=== PATIENT | male | born 1980 | race Caucasian/White ===

== ENCOUNTER 2023-09-14 12:19 | Outpatient (OUT) | payer OTHER, SELFPAY ==
[2023-09-14 12:58] LABS: Basophils Absolute Auto 0.1 10^3/uL (0.0-0.1); Basophils Percent Auto 0.9 % (0.2-2.0); Eosinophils Absolute Auto 0.2 10^3/uL (0.0-0.7); Eosinophils Percent Auto 2.3 % (0.9-7.0); Immature Granulocytes Abs Auto 0.02 10^3/uL (0.00-0.03); Immature Granulocytes Pct Auto 0.3 % (0.0-0.5); Lymphocytes Absolute Auto 2.1 10^3/uL (1.2-3.8); Lymphocytes Percent Auto 28.3 % (20.5-60.0); Mean Corpuscular HGB Conc 34.1 g/dL (29.9-35.2); Mean Corpuscular Hemoglobin 29.5 pg (25.9-34.0); Mean Corpuscular Volume 86.6 fL (80.0-94.0); Mean Platelet Volume 9.1 fL (9.5-13.5); Monocytes Absolute Auto 0.6 10^3/uL (0.3-0.8); Monocytes Percent Auto 7.7 % (1.7-12.0); Neutrophils Absolute Auto 4.6 10^3/uL (1.4-6.5); Neutrophils Percent Auto 60.5 % (43.0-75.0); Platelet Count 317 10^3/uL (150-450); Red Blood Count 5.08 10^6/uL (4.70-6.10); Red Cell Distribution Width 13.2 % (11.0-15.0); White Blood Count 7.5 10^3/uL (4.0-11.0)
[2023-09-14 13:25] LABS: Alanine Aminotransferase 56 U/L (16-63); Anion Gap 9.9; Aspartate Amino Transferase 30 U/L (15-37); BUN Creatinine Ratio 13.4; Bilirubin Total 0.7 mg/dL (0.2-1.0); Calcium 9.6 mg/dL (8.5-10.1); Carbon Dioxide 33.2 mmol/L (21.0-32.0); Chloride 101 mmol/L (98-107); Estimated GFR (African America >60 (>=60); Estimated GFR (Non-African Ame >60 (>=60); Glucose 93 mg/dL (74-106); Potassium 4.1 mmol/L (3.5-5.1); Sodium 140 mmol/L (136-145)
[2023-09-14 13:26] LABS: Alkaline Phosphatase 56 U/L (46-116); Cholesterol 169 mg/dL (<=200); Globulin 4.2 g/dL; HDL Cholesterol 42 mg/dL (40-60); Total Protein 8.2 g/dL (6.4-8.2); Triglycerides 193 mg/dL (<=150); VLDL CHOLESTEROL 38.6 mg/dL
== END 2023-09-14 12:20 | disposition home or self-care (01) ==
LOC: LAB 12:25
PROVIDERS: PCP Nurse Practitioner Family; Visit Provider Nurse Practitioner Family
DX: E78.2 Mixed hyperlipidemia (principal); I10 Essential (primary) hypertension
CPT/HCPCS: 36415; 80053; 80061; 85025

== ENCOUNTER 2023-10-05 10:15 | Outpatient (OUT) | payer OTHER, SELFPAY ==
--- OUTSIDE RECORDS SUMMARY | 2023-09-17 17:18 | XMS_ITS | CCD ---
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 Neisha Noyola Attending Unava ilable Shima, Dr. Johnny Lee Primary Care Unavaila ble SHIMA, DR FARAH Primary Care Unavailable DINESH, DR MARIE Attending Unavailable DINESH, DR MARIE Consulting Unavailable DINESH, DR MARIE Admitting Unavailable LUISA WEIR Consulting Unavailable TIMMIS, DR TREVINO Attending Unavailable TIMMIS, DR TREVINO Consulting Unavailable TIMAMINA, DR TREVINO Admitting Unavailable SHIMA, DR FARAH Primary Care Unavailable NEIDA, DR FLORENTINO Rose Consulting Unavailable SHIMA, DR FARAH Admitting Unavailable SHIMA, DR FARAH Attending Unavailable SHIMA, DR FARAH Consulting Unavailable SHIMA, DR FARAH Primary Care Unavailable NEIDA, DR FLORENTINO Rose Consulting Unavailable MD Johnny Ronquillo Primary Care Provider MD Camryn Baker Attending Provider Calvey, Camryn R Admitting Unavailable Calvey, Camryn R Attending Unavailable Shima, Rugen M Primary Care Unavailable Calvey, Camryn R Admitting Unavailable Calvey, Camryn R Attending Unavailable Sonoita, Rugen M Primary Care Unavailable Calvey, Camryn R Admitting Unavailable Calvey, Camryn R Attending Unavailable Sonoita, Rugen M Primary Care Unavailable Calvey, Camryn R Admitting Unavailable Calvey, Camryn R Attending Unavailable Sonoita, Rugen M Primary Care Unavailable Negro Negrete Admitting Unavailable Negro Negrete Attending Unavailable Shima, Rugen M Primary Care Unavailable Calvey, Camryn R Admitting Unavailable Calvey, Camryn R Attending Unavailable Shima, Rugen M Primary Care Unavailable Calvey, Camryn R Admitting Unavailable Calvey, Camryn R Attending Unavailable Sonoita, Rugen M Primary Care Unavailable Calvey, Camryn R Admitting Unavailable Calvey, Camryn R Attending Unavailable Sonoita, Rugen M Primary Care Unavailable Calvey, Camryn R Admitting Unavailable Calvey, Camryn R Attending Unavailable Shima, Rugen M Primary Care Unavailable Negro Negrete Admitting Unavailable Negro Negrete Attending Unavailable Sonoita, Rugen M Primary Care Unavailable Calvey, Camryn R Admitting Unavailable Calvey, Camryn R Attending Unavailable Shima, Rugen M Primary Care Unavailable Neisha Noyola Referring Unavailable Neisha Noyola Attending Unavailable Shima, Dr. Johnny Lee Primary Care UnavailKatey Ulrich Unavailable [phone] Allergies Allergy Classification Reported Allergen(s) Allergy Type Date of Onset Reaction(s) Facility (7 sources) Lisinopril; Translations: [Lisinopril TABS] Drug Allergy Cough, Unknown [facility] 250 DO Work Phone: (10 sources) Iodinated Contrast Media; Translations: [Iodinated Contrast Media] Allergy to substance 1 [facility] (5 sources) Contrast media Allergy to substance (finding) [facility] 250 DO Work Phone: (1 source) Iodine (And Iodine Containting Drugs) Drug allergy (disorder) [facility] (1 source) Contrast media Propensity to adverse reactions Unknown [facility] Other Medications Current Medications Medication Drug Class(es) Dates Sig (Normalized) Sig (Original) [id number] 200 actuat albuterol 0.09 mg/actuat metered dose inhaler (9 sources) beta2-Adrenergic Agonist Start: 1 take 1 puff(s) by inhalation once daily Albuterol Sulfate Active 2 PUFF INHALATION Daily April 04, 2021 12:00am amLODIPine 10 mg / hydroCHLOROthiazide 25 mg / olmesartan medoxomil 40 mg oral tablet (8 sources) Thiazide Diuretic, Dihydropyridine Calcium Channel Belkis, Angiotensin 2 Receptor Belkis take 1 tablet by mouth every twenty-four hours Olmesartan-amLODI [place]-HCTZ 40-10-25 MG 1 tablet Orally Once a day Active azelastine hydrochloride 0.137 mg/actuat metered dose nasal spray (1 source) Histamine-1 Receptor Antagonist Azelastine HCl 0.1 % 2 sprays in each nostril Nasally As needed for 14 days Active cetirizine hydrochloride 10 mg oral tablet (3 sources) Histamine-1 Receptor Antagonist Start: 2 take 10 mg by mouth once daily Cetirizine Active 10 MG PO Daily May 10, 2022 12:00am citalopram 20 mg oral tablet (1 source) Serotonin Reuptake Inhibitor take 1 tablet by mouth every twenty-four hours Citalopram Hydrobromide 20 MG 1 tablet Orally Once a day Active Magnesium (1 source) Magnesium 400 MG as directed Orally Active nitroglycerin 0.4 mg sublingual tablet (11 sources) Nitrate Vasodilator Start: 9 Nitroglycerin Active 0.4 MG SUBLINGUAL every 5 to 15 minutes December 17, 2018 12:00am until response; do not exceed 3 doses per episode Nitroglycerin 0. 4 MG as directed Sublingual Active sertraline 50 mg oral tablet (17 sources) Serotonin Reuptake Inhibitor Start: 04-04-2021 take 50 mg by mouth once daily at bedtime Sertraline Active 50 MG PO Daily at bedtime April 04, 2021 12:00am Completed/Discontinued Medications Medication Drug Class(es) Dates Sig (Normalized) Sig (Original) acetaminophen 325 mg / oxyCODONE hydrochloride 5 mg oral tablet (20 sources) Opioid Agonist Start: 01-24-2022 End: 05-10-2022 take 1 tablet by mouth every four to six hours Oxycodone-Acetamino phen (Percocet) 5-325 mg tablet Discontinued 1 - 2 TAB PO EVERY 4-6 HOURS 50 7 January 31, 2022 May 10, 2022 9:56am Start: 05-09-2021 End: 05-10-2022 take 1-2 tablets by mouth every six hours as needed for pain Oxycodone-Acetaminophen (Percocet) 5-325 mg tablet Discontinued 2 TAB PO Q6H 30 7 May 09, 2021 May 10, 2022 9:56am 1-2 tabs po q 6 hours prn pain allopurinol 300 mg oral tablet (20 sources) Xanthine Oxidase Inhibitor Start: 07-13-2022 take 1 tablet by mouth once daily Allopurinol 300 MG Oral Tablet TAKE 1 TABLET DAILY. Quantity: 0 Refills: 0 Ordered: 08-Nov-2022 DO Start : 13-Jul-2022 Active Start: 12-17-2018 End: 04-04-2021 take 300 mg by mouth once daily at bedtime Allopurinol Active 300 MG PO Daily at bedtime April 04, 2021 5:45pm amLODIPine 10 mg oral tablet (19 sources) Dihydropyridine Calcium Channel Belkis Start: 04-04-2021 take 1 tablet by mouth once daily amLODIPine Besylate 10 MG Oral Tablet TAKE 1 TABLET DAILY. Quantity: 90 Refills: 3 Ordered: 12-Dec-2022 Neisha Noyola DO Start : 13-Jul-2022 Active aspirin 81 mg chewable tablet (9 sources) Platelet Aggregation Inhibitor, Nonsteroidal Anti-inflammatory Drug Start: 12-17-2018 End: 04-04-2021 take 81 mg by mouth once daily Aspirin Discontinued 81 MG PO Daily 0 December 17, 2018 12:00am April 04, 2021 5:31pm atorvastatin 80 mg oral tablet (20 sources) HMG-CoA Reductase Inhibitor Start: 12-17-2018 take 1 tablet by mouth once daily in the evening Atorvastatin Calcium 80 MG Oral Tablet take 1 tablet by mouth every evening Quantity: 90 Refills: 3 Ordered: 12-Dec-2022 Neisha Noyola DO Start : 08-Sep-2021 Active take 1 tablet by arnold th every twenty-four hours Atorvastatin Calcium 20 MG 1 tablet Oral ly Once a day Active carvedilol 25 mg oral tablet (18 sources) alpha-Adrenergic Belkis, beta-Adrenergic Belkis Start: 04-04-2021 End: 01-24-2022 take 25 mg by mouth twice daily Carvedilol Discontinued 25 MG PO Twice daily April 04, 2021 12:00am January 24, 2022 12:10pm Start: 12-17-2018 End: 04-04-2021 take 6.25 mg by mouth twice daily at mealtime Carvedilol Discontinued 6.25 MG PO Twice daily with meals December 17, 2018 12:00am April 04, 2021 5:32pm clopidogrel 75 mg oral tablet (20 sources) P2Y12 Platelet Inhibitor Start: 12-12-2021 take 1 tablet by mouth once daily Clopidogrel Bisulfate 75 MG Oral Tablet Take 1 tablet daily Quantity: 90 Refills: 3 Ordered: 12-Dec-2022 Neisha Noyola DO Start : 12-Dec-2021 Active Start: 12-17-2018 End: 04-04-2021 take 1 tablet by mouth once daily Clopidogrel Bisulfate 75 MG Oral Tablet TAKE 1 TABLET BY MOUTH DAILY Quantity: 90 Refills: 3 Ordered: 13-Dec-2021 Yelena Dudley Start : 12-Dec-2021 Active doxycycline hyclate 100 mg oral tablet (5 sources) Tetracycline-class Drug Start: 01-31-2022 End: 05-10-2022 take 100 mg by mouth twice daily Doxycycline Hyclate Discontinued 100 MG PO Twice daily 10 5 January 31, 2022 12:00am May 10, 2022 9:47am furosemide 40 mg oral tablet (2 sources) Loop Diuretic Start: 09-11-2022 take 1 tablet by mouth once daily Furosemide 40 MG Oral Tablet TAKE 1 TABLET DAILY. Quantity: 0 Refills: 0 Ordered: 08-Dec-2022 DO Start : 11-Sep-2022 Active lisinopril 5 mg oral tablet (9 sources) Angiotensin Converting Enzyme Inhibitor Start: 12-17-2018 End: 04-04-2021 take 5 mg by mouth once daily Lisinopril Discontinued 5 MG PO Daily 30 December 17, 2018 12:00am April 04, 2021 5:32pm 24 hr metoprolol succinate 50 mg extended release oral tablet (20 sources) beta-Adrenergic Belkis Start: 12-26-2021 take 1 tablet by mouth once daily Metoprolol Succinate ER 50 MG Oral Tablet Extended Release 24 Hour TAKE 1 TABLET BY MOUTH DAILY Quantity: 90 Refills: 3 Ordered: 12-Dec-2022 Neisha Noyola DO Start : 26-Dec-2021 Active take 1 tablet by arnold th every twelve hours Metoprolol Tartrate 50 MG 1 tablet with food Orally Twice a day Active pantoprazole 20 mg delayed release oral tablet (5 sources) Proton Pump Inhibitor Start: 05-10-2022 take 1 tablet by mouth once daily Pantoprazole Sodium 20 MG Oral Tablet Delayed Release TAKE 1 TABLET BY MOUTH ONCE DAILY Quantity: 30 Refills: 0 Ordered: 08-Nov-2022 DO Start : 11-Oct-2022 Active traZODone hydrochloride 50 mg oral tablet (9 sources) Serotonin Reuptake Inhibitor Start: 04-04-2021 End: 01-24-2022 take 50 mg by mouth once daily at bedtime Trazodone Discontinued 50 MG PO Daily at bedtime April 04, 2021 12:00am January 24, 2022 12:15pm valsartan 320 mg oral tablet (19 sources) Angiotensin 2 Receptor Belkis Start: 12-09-2022 take 1 tablet by mouth once daily Valsartan 320 MG Oral Tablet TAKE 1 TABLET DAILY. Quantity: 90 Refills: 3 Ordered: 12-Dec-2022 Neisha Noyola DO Start : 09-Dec-2022 Active Start: 04-04-2021 take 320 mg by mouth once daily at bedtime Valsartan Active 320 MG PO Daily at bedtime April 04, 2021 12:00am Problems Active Problems Problem Classification Problem Date Documented Da te Episodic/Chronic Abdominal hernia (9 sources) Umbilical hernia; Translations: [Umbilical hernia without obstruction or gangrene] 05-09-2021 Episodic Acute myocardial infarction (14 sources) Myocardial infarction; Translations: [Non-ST elevation (NSTEMI) myocardial infarction] 12-16-2018 Chronic Administrative/social admission (4 sources) Patient encounter status; Translations: [Health examination of defined subpopulations] Onset: 3 Episodic Anxiety disorders (1 source) Anxiety; Translations: [Anxiety disorder, unspecified] Chronic Coronary atherosclerosis and other heart disease (12 sources) Ischemic myocardial dysfunction; Translations: [Other specified forms of chronic ischemic heart disease] Onset: 3 Chronic Disorders of lipid metabolism (7 sources) Mixed hyperlipidemia; Translations: [Mixed hyperlipidemia] Chronic Esophageal disorders (6 sources) Gastroesophageal reflux disease; Translations: [Gastro-esophageal reflux disease without esophagitis] Onset: 2 Resolved: 2 Chronic Essential hypertension (6 sources) Essential hypertension; Translations: [Unspecified essential hypertension] Chronic Gout and other crystal arthropathies (6 sources) Gout; Translations: [Gout, unspecified] Chronic Mood disorders (1 source) Recurrent major depression in partial remission; Translations: [Major depressive disorder, recurrent, in partial remission] Chronic Other gastrointestinal disorders (5 sources) Dysphagia; Translations: [Dysphagia, unspecified] Episodic Other nervous system disorders (5 sources) Pain in limb; Translations: [Other acute postprocedural pain] 01-31-2022 Episodic Other nutritional; endocrine; and metabolic disorders (4 sources) Morbid obesity; Translations: [Morbid obesity] Chronic Other nutritional; endocrine; and metabolic disorders (5 sources) Body mass index 40+ - severely obese; Translations: [Body Mass Index 40.0-44.9, adult] Chronic Other upper respiratory infections (8 sources) Chronic maxillary sinusitis; Translations: [Chronic sinusitis, unspecified] Onset: 2 Chronic Residual codes; unclassified (1 source) Obstructive sleep apnea syndrome; Translations: [Obstructive sleep apnea (adult) (pediatric)] Chronic Residual codes; unclassified (5 sources) Other specified postprocedural states Onset: 2 Resolved: 2 Episodic Residual codes; unclassified (1 source) Other specified postprocedural states; Translations: [Other specified postprocedural states] Onset: 3 Episodic Screening and history of mental health and substance abuse codes (1 source) Ex-smoker; Translations: [Personal history of tobacco use] Episodic Unclassified (1 source) Encounter for preprocedural laboratory examination; Translations: [Encounter for preprocedural laboratory examination] Onset: 2 Unclassified (1 source) S52.362A - Displaced segmental fracture of shaft of radius, left arm, initial encounter for closed fracture; Translations: [S52.362A - Displaced segmental fracture of shaft of radius, left arm, initial encounter for closed fracture] Onset: 2 Unclassified (1 source) Displaced segmental fracture of shaft of radius, left arm, initial encounter for closed fracture; Translations: [Displaced segmental fracture of shaft of radius, left arm, initial encounter for closed fracture] Onset: 2 Unclassified (1 source) M25.532 - Pain in left wrist; Translations: [M25.532 - Pain in left wrist] Onset: 2 Unclassified (1 source) Z01.812 - Encounter for preprocedural laboratory examination; Translations: [Z01.812 - Encounter for preprocedural laboratory examination] Onset: 2 Past or Other Problems Problem Classification Problem Date Documented Da te Episodic/Chronic E Codes: Machinery (1 source) Contact with other specified agricultural machinery, initial encounter; Translations: [CONTACT OTH AGRICULTURAL MACH INIT] Onset: 01-20-2022 Episodic Fracture of upper limb (13 sources) Fracture of distal end of radius; Translations: [Unspecified fracture of the lower end of left radius, initial encounter for closed fracture] Onset: 01-20-2022 Resolved: 03-15-2022 01-31-2022 Episodic Joint disorders and dislocations; trauma-related (1 source) Subluxation of distal radioulnar joint of left wrist, initial encounter; Translations: [SUBLUXATION LILY JOINT LT WRIST INIT] Onset: 01-20-2022 Episodic Nausea and vomiting (1 source) Nausea; Translations: [NAUSEA] Onset: 01-20-2022 Episodic Other aftercare (1 source) Other [facility] (current[facility] drug therapy; Translations: [OTH BAND MASTER CURRENT DRUG THERAPY] Onset: 01-20-2022 Episodic Other connective tissue disease (3 sources) Pain in left arm; Translations: [PAIN IN LEFT ARM] Onset: 01-19-2022 Episodic Other connective tissue disease (1 source) Pain in unspecified limb; Translations: [Pain in unspecified limb] Onset: 01-31-2022 Episodic Other gastrointestinal disorders (2 sources) Dysphagia, unspecified; Translations: [Dysphagia, unspecified] Onset: 04-04-2022 Resolved: 04-04-2022 Episodic Other nervous system disorders (1 source) Other acute postprocedural pain; Translations: [Other acute postprocedural pain] Onset: 01-31-2022 Episodic Results Test Name Value Interpretation Reference Range Facility Office Visit (Cardiology)on 12-12-2022 Follow-up visit Diagnoses/Problems Assessed 3-vessel coronary artery disease (414.00) (I25.10) Ischemic cardiomyopathy (414.8) (I25.5) History of PTCA (V45.82) (Z98.61) Essential hypertension (401.9) (I10) Myocardial infarct (410.90) (I21.9) Morbid obesity with BMI of 40.0-44.9, adult (278.01,V85.41) (E66.01,Z68.41) Former smoker (V15.82) (Z87.891) Hyperlipidemia, mixed (272.2) (E78.2) Orders 3-vessel coronary artery disease Renew: Clopidogrel Bisulfate 75 MG Oral Tablet; Take 1 tablet daily Renew: Metoprolol Succinate ER 50 MG Oral Tablet Extended Release 24 Hour; TAKE 1 TABLET BY MOUTH DAILY 3-vessel coronary artery disease, Ischemic cardiomyopathy Renew: amLODIPine Besylate 10 MG Oral Tablet; TAKE 1 TABLET DAILY BMI 40.0-44.9, adult Healthy Weight Tips; Status:Complete - Retrospective Authorization; Done: 12Dec2022 AST; Status:Active - Retrospective Authorization; Requested for:12Dec2022; Some eating tips that can help you lose weight.; Status:Complete - Retrospective Authorization; Done: 12Dec2022 CRP, High Sensitivity; Status:Active - Retrospective Authorization; Requested for:12Dec2022; Lipid Panel; Status:Active - Retrospective Authorization; Requested for:12Dec2022; Essential hypertension Renew: Valsartan 320 MG Oral Tablet; TAKE 1 TABLET DAILY Hyperlipidemia, mixed Renew: Atorvastatin Calcium 80 MG Oral Tablet; take 1 tablet by mouth every evening SocHx: Former smoker Tobacco Use Screening; Status:Complete; Done: 12Dec2022 Patient Instructions Please bring all medicines, vitamins, and herbal supplements with you when you come to the office. Prescriptions will not be filled unless you are compliant with your follow up appointments or have a follow up appointment scheduled as per instruction of your physician. Refills should be requested at the time of your visit. Follow up in 1 year Chief Complaint MASSIMO SANTOYO is being seen for an annual follow-up of. 42-year-old gentleman returns for follow-up for the first time since April 2021. Patient has a history of Non-ST elevation myocardial infarction, December 2018 with primary revascularizations of the ostial/proximal circumflex, provisional balloon angioplasties of the first and second marginal branches; chronic total occlusion revascularization of the mid LAD and diagonal branch with stenting of these 2 vessels, provisional balloon angioplasty of the second diagonal branch; with mild LV dysfunction. He underwent stress testing this past October and passed this albeit, inadequate heart rate but at 8.5 METS with no ischemic ECGs or symptoms. He has underlying obesity, hypertension, family history of precocious coronary disease, he remains on high-dose statin and DAPT therapies, does not smoke and does not have diabetes. We have no recent blood work, will require this from his primary care physician or obtain lipid panel ourselves, continue recommend dietary discretion, weight loss and exercise and will continue with DAPT therapy for the time being we will follow-up in 1 year Surgical History Problems History of Appendectomy Denied: History of Complete colonoscopy History of Facial surgery History of Wrist surgery Current Meds Medication NameInstruction Allopurinol 300 MG Oral TabletTAKE 1 TABLET DAILY. amLODIPine Besylate 10 MG Oral TabletTAKE 1 TABLET DAILY. Atorvastatin Calcium 80 MG Oral Tablettake 1 tablet by mouth every evening Clopidogrel Bisulfate 75 MG Oral TabletTake 1 tablet daily Furosemide 40 MG Oral TabletTAKE 1 TABLET DAILY. Metoprolol Succinate ER 50 MG Oral Tablet Extended Release 24 HourTAKE 1 TABLET BY MOUTH DAILY Nitroglycerin 0.4 MG Sublingual Tablet SublingualPL[address] 1 TABLET UNDER THE TONGUE EVERY 5 MINUTES FOR UP TO 3 DOSES NEEDED FOR CHEST PAIN.CALL 911 IF PAIN PERSISTS. Pantoprazole Sodium 20 MG Oral Tablet Delayed ReleaseTAKE 1 TABLET BY MOUTH ONCE DAILY Valsartan 320 MG Oral TabletTAKE 1 TABLET DAILY. Patient did not bring medication list or bottles. Updated verbally with patient Allergies Medication Lisinopril TABS Cough; Updated By: Muriel Fowler; 03/06/2022 9:39:40 AM NonMedication IV Contrast Dye Hives;; Recorded By: Muriel Fowler; 03/06/2022 9:39:40 AM Social History Problems Alcohol use (V49.89) (Z78.9) Caffeine use (V49.89) (Z78.9) Drug use (305.90) (F19.90) weed occasional Former smoker (V15.82) (Z87.891) Review of Systems Constitutional: not feeling tired. Cardiovascular: chest pain, but no intermittent leg claudication and as noted in HPI. Respiratory: no cough and no shortness of breath. Gastrointestinal: no change in bowel habits and no blood in stools. Integumentary: no skin rashes. Neurological: no seizures and no frequent falls. All other systems have been reviewed and are negative for complaint. Vitals Vital Signs Recorded: 12Dec2022 02:29PM Heart Rate80, R Radial Vyrmqlvt549, LUE, Sitting Gqnxrgeul70, LUE, Sitting Xrzzyl990 lb Tobacco Useb) No Physical Exam (more content not included)... Normal Pure Eleg[employer] TV Tobacco Screening.on 023 Tobacco use status [facility] b) No -[facility] 250 DO Work Phone: XR wrist LT min 3V*on 2022 XR wrist LT min 3V* [facility] Main [place] [address] [place] [address] XRay Report Signed Patient: Massimo Santoyo MR#: [id number] : 1980 Acct:[id number] Age/Sex: 42 / M ADM Date: 11/01/22 Loc: [facility] [place] Room: Type: [facility] Attending Dr: Camryn Baker MD Copies to: Camryn Baker MD Ordering Provider: Camryn Baker MD Date of Service: 11/01/22 XR/XR wrist LT min 3V*: Other specified postprocedural states LEFT WRIST - 4 VIEWS COMPARISON: 05/24/2022 CLINICAL DATA: Follow-up distal radius fracture. AP, lateral, oblique and ulnar deviation views were obtained. There is redemonstration of a volar plate and multiple screws along the distal radial shaft up to the epiphysis. There is an old healed fracture at that site which is unchanged from the prior. An old ununited ulnar styloid fracture is also seen. There are no acute fractures or dislocation. There is continued narrowing of the radiocarpal joint space. There is no focal soft tissue swelling. XR/XR wrist LT min 3V* IMPRESSION: OLD WRIST FRACTURES, UNCHANGED FROM THE PRIOR. DEGENERATIVE CHANGE AT THE LATERAL WRIST. Impression dictated by: Luisa Espinoza M.D.11/01/2022 4:48 PM Dictation Location: [facility] Transcribed By: ANN-MARIE 11/01/22 1648 Dictated By: Luisa Espinoza MD 11/01/221645 Signed By: 11/01/221647 [facility] Cardiac Stress Teston 2022 Cardiac Stress Test [address], [address] [place] [address] Exercise Stress Test Patient Name: MASSIMO SANTOYO Ordering Physician: [id number] Neisha Noyola DO Study Date: 09/19/2022 Reading Physician: [id number] Flores MD, [facility] MRN/PID: [id number] Supervising Physician: Sherly Flores MD, [facility] Accession/Order#: [id number] Referring Physician: NEISHA NOYOLA Date of : 1980 PCP: Johnny Ronquillo Gender: M Fellow: Height: 190.50 cm Nurse: Cosmo Brower RN Weight: 157.40 kg Awning Erector: MICAHEL BSA: 2.77 m2 Technologist: BMI: 43.37 kg/m2 Additional Staff: Age: 42 years cc report to: Patient Location: cc report to: [id number] Neisha Cisnerosbe SALAS Study Type: Cardiac Stress Test Diagnosis/ICD: I25.10-Atheroscleroti c heart disease Indication: Clearance Occupational Procedure/CPT: Stress Test Interpretation-19500; Stress Test Supervision-[id number] Falls Risk: Low: Patient has low risk for sustaining a fall; environmental safety interventions in place. Study Details: Correct procedure and correct patient verified verbally. Patient Performance: The peak heart rate achieved was 141 bpm, which was 79 % of the age predicted target heart rate of 178 bpm. The resting blood pressure was 128/88 mmHg with a heart rate of 61 bpm. The standing blood pressure was 126/88 mmHg with a heart rate of 60 bpm. The patient's functional capacity was below average. The patient developed leg fatigue during the stress exam. The symptoms resolved with rest. The blood pressure response was normal. The test was terminated due to: leg fatigue and musculoskeletal weakness. Baseline ECG: Resting ECG showed normal sinus rhythm. Stress Stage Data: + +-- -+------+-------+ HR Sys BP Ocasio BP + +-- -+------+-------+ Baseline Resting 61 128 88 + +-- -+------+-------+ Baseline Standing 60 126 88 + +-- -+------+-------+ Stage 1/2 110 144 86 + +-- -+------+-------+ Stage I 121 164 88 + +-- -+------+-------+ Stage II 141 168 90 + +-- -+------+-------+ Recovery ECG: The heart rate recovery was normal. + +---+--- ---+-------+ HR Sys BP [facility] + +---+--- ---+-------+ Recovery I 141 164 88 + +---+--- ---+-------+ Recovery II 117 166 90 + +---+--- ---+-------+ Recovery III 93 146 92 + +---+--- ---+-------+ Recovery IV 79 136 94 + +---+--- ---+-------+ Recovery V 81 132 88 + +---+--- ---+-------+ Summary: 1. 1_nondiagnostic exercise tolerance test after completing 7 minutes on a Bennie protocol and achieving 79% of predicted maximal heart rate and workload of 8.5 METS. Failure to achieve 85% of predicted maximal heart rate reduces the sensitivity of the test in detecting myocardial ischemia. 2_no chest pain and no cardiac arrhythmias with no ischemic EKG changes noted at submaximal stress test of unknown significance. 3_attenuated heart rate response to exercise. If the index of suspicion for ischemic heart disease is elevated a pharmacological nuclear stress test is recommended. 2. The adequate level of stress was achieved. [id number] Jenny Flores MD, [facility] Electronically signed on 09/19/2022 at 5:38:46 PM Final Normal [facility] XR wrist LT 2Von 05-24-2022 XR wrist LT 2V [facility] [place] [place] [address] XRay Report Signed Patient: Massimo Santoyo MR#: [id number] 232 : 1980 Acct:[id number] Age/Sex: 41 / M ADM Date: 05/24/22 Loc[place] [facility] [place] Room: Type: [facility] Attending Dr: Camryn Baker MD Copies to: Camryn Baker MD Ordering Provider: Camryn Baker MD Date of Service: 05/24/22 XR/XR wrist LT 2V: Closed displaced segmental fracture of shaft of left radius, LEFT WRIST - 2 views CLINICAL HISTORY: Follow-up distal radius fracture COMPARISON: Left wrist 04/12/2022 FINDINGS: Hardware fixation of a distal radius grossly unchanged in alignment compared to the prior study. Fracture lines are less conspicuous suggestive of healing. Styloid process fracture of the ulna is unchanged. XR/XR wrist LT 2V IMPRESSION: HEALING INTERNALLY FIXATED DISTAL RADIUS FRACTURE WITHOUT EVIDENCE OF HARDWARE COMPLICATION. Impression dictated by: Gilberto Escoto Jr., D.O.05/24/2022 4:49 PM Dictation Location: [facility]--08 Transcribed By: [facility] 05/24/221648 Dictated By: Gilberto Escoto Jr, DO 05/24/221647 Signed By: 05/24/221648 Normal [facility] XR wrist LT 2V [facility] [employer] Other XR wrist LT 2V [facility] [employer] Other XR wrist LT 2V [address] [place] [address] [employer] Other XR [place] 2[place] [address] [facility] [employer] Other XR wrist LT 2V XRay Report [employer] Other XR wrist LT 2V Signed [employer] Other XR wrist LT 2V Patient: Massimo Santoyo MR#: [id number] [employer] Other XR wrist LT 2V 232 [employer] Other XR wrist LT 2V : 1980 Acct:[id number] [employer] Other XR wrist LT 2V Age/Sex: 41 / M ADM Date: 05/24/22 [employer] Other XR wrist LT 2V Loc: [facility] Room: Type : [facility] [employer] Other XR wrist LT 2V Attending Dr: Mindy Baker MD [employer] Other XR wrist LT 2V Copies to: Camryn Baker MD [employer] Other XR wrist LT 2V Ordering Provider: Camryn Baker MD [employer] Other XR wrist LT 2V Date of Service: 05/24/22 [employer] Other XR wrist LT 2V XR/XR wrist LT 2V: Closed displaced segmental fracture of shaft of left [employer] Other XR wrist LT 2V radius, [employer] Other XR wrist LT 2V LEFT WRIST - 2 views [employer] Other XR wrist LT 2V CLINICAL HISTORY: Follow-up distal radius fracture [employer] Other XR wrist LT 2V COMPARISON: Left wrist 04/12/2022 [employer] Other XR wrist LT 2V FINDINGS: [employer] Other XR wrist LT 2V Hardware fixation of a distal radius grossly unchanged in alignment compared to the prior study. [employer] Other XR wrist LT 2V Fracture lines are less conspicuous suggestive of healing. Styloid process fracture of the ulna is [employer] Other XR wrist LT 2V unchanged. [employer] Other XR wrist LT 2V XR/XR wrist LT 2V [employer] Other XR wrist LT 2V IMPRESSION: [employer] Other XR wrist LT 2V HEALING INTERNALLY FIXATED DISTAL RADIUS FRACTURE WITHOUT EVIDENCE OF HARDWARE COMPLICATION. [employer] Other XR wrist LT 2V Impression dictated by: Gilberto Escoto Jr., D.ODandy05/24/2022 4:49 PM [employer] Other XR wrist LT 2V Dictation Location: [place] [address] [employer] Other XR wrist LT 2V Transcribed By: ANN-MARIE 05/24/22 [facility] [employer] Other XR wrist LT 2V Dictated By: Gilberto Escoto Jr, DO 05/24/22 1648 [employer] Other XR wrist LT 2V Signed By: [employer] Other XR wrist LT 2V 05/24/22 1649 [facility] [employer] Other Amphetamine Screen Ql (U)Ord ered By: Negro Negrete on 05-10-2022 Amphetamines Ql (U) Negative Negative [facility] Barbiturates [Presence] in U rineOrdered By: Negro Negrete on 05-10-2022 Barbiturates Ql (U) Negative Negative [facility] Benzodiazepines [Presence] i n UrineOrdered By: Negro Negrete on 05-10-2022 Benzodiazepines Ql (U) Negative Negative [facility] Cannabinoids [Presence] in U rine by Screen methodOrdered By: Negro Negrete on 05-10-2022 Cannabinoids Screen Ql (U) Positive Negative [facility] Comment on above: These are unconfirme d results and should not be used for legal purposes. Drug Cut-Off Concentration: AMPH 1000 ng/mL TRI 200 ng/mL ASHISH 200 ng/mL COCM 300 ng/mL OP 300 ng/mL PCP 25 ng/mL THC 20 ng/mL Drug Screen,Urineon 05-10-20 Amphetamine Screen,Urine Negative Normal Negative [facility] Comment on above: Performed By: #### U RDS ####[place] [id number] [address] Barbiturate Screen,Urine Negative Normal Negative [facility] Comment on above: Performed By: #### U RDS ####[place] [id number] [address] Benzodiazepines Screen,Urine Negative Normal Negative [facility] Comment on above: Performed By: #### U RDS ####[address] Cannabinoid Screen,Urine Positive High Negative [facility] Comment on above: Result Comment: Thes e are unconfirmed results and should not be used for legal purposes. Drug Cut-Off Concentration: AMPH 1000 ng/mL TRI 200 ng/mL ASHISH 200 ng/mL COCM 300 ng/mL OP 300 ng/mL PCP 25 ng/mL THC 20 ng/mL PERFORMED BY: [facility] [address] [place] [id number] PATHOLOGIST TECHNICAL SOLUTIONS ENGINEER SORAYA ESPINOZA M.D. Performed By: #### U RDS ####[facility] [id number] [place] [id number] [facility] Cocaine Screen,Urine Negative Normal Negative [facility] Comment on above: Performed By: #### U RDS ####[facility] [id number] [place] [id number] [facility] Opiate Screen,Urine Negative Normal Negative [facility] Comment on above: Performed By: #### U RDS ####[facility] [id number] [place] [id number] [facility] Phencyclidine Screen,Urine Negative Normal Negative [facility] Comment on above: Performed By: #### U RDS ####[facility] [id number] [place] [id number] [facility] Laboratory - Drug toxicology Ordered By: Negro Negrete on 05-10-2022 Opiates Ql (U) Negative Negative [facility] Phencyclidine Screen Ql (U)O rdered By: Negro Negrete on 05-10-2022 Phencyclidine Ql (U) Negative Negative [facility] Urine cocaine detectionOrder ed By: Negro Negrete on 05-10-2022 Cocaine Ql (U) Negative Negative [facility] COVID-19 FRMCon 05-08-2022 SARS-CoV-2 (COVID-19) RNA CHELSEA+probe Ql (Unsp spec) Negative Normal Negative [facility] Comment on above: Order Comment: Healt hcare Worker?: N Result Comment: Testing for SARS-CoV-2 by RT-PCR This test was developed and its performance characteristics determined by [employer] and validated at the [facility]. This test has not been FDA cleared or approved. This test has been authorized by FDA under an Emergency Use Authorization (EUA). This test has been validated in accordance with the FDA's Guidance Document (Policy for Diagnostics Testing in Laboratories Certified to Perform High Complexity Testing under CLIA prior to Emergency Use Authorization for Coronavirus Disease-2019 during the Public Health Emergency) issued on November 13, 2019. This test is only authorized for the duration of time the declaration that circumstances exist justifying the authorization of the emergency use of in vitro diagnostic tests for detection of SARS-CoV-2 virus and/or diagnosis of COVID-19 infection under section 564(b)(1) of the Act, 21 U.S.C. 360bbb-3(b)(1), unless the authorization is terminated or revoked sooner. PERFORMED BY: [place] [id number] PATHOLOGIST TECHNICAL SOLUTIONS ENGINEER SORAYA ESPINOZA M.D. Performed By: #### C OVID 19 [facility] [place] [facility] ####[facility] [place] [address] [facility] COVID-19 Positive/NegativeOr dered By: Negro Negrete on 05-08-2022 SARS-CoV-2 (COVID-19) N gene CHELSEA+probe Ql (Resp) Negative Negative [facility] Comment on above: Testing for SARS-CoV -2 by RT-PCRThis test was developed and its performance characteristics determined by [employer] and validated at the [facility]. This test has not been FDA cleared or approved. This test has been authorized by FDA under an Emergency Use Authorization (EUA). This test has been validated in accordance with the FDA's Guidance Document (Policy for Diagnostics Testing in Laboratories Certified to Perform High Complexity Testing under CLIA prior to Emergency Use Authorization for Coronavirus Disease-2019 during the Public Health Emergency) issued on November 13, 2019. This test is only authorized for the duration of time the declaration that circumstances exist justifying the authorization of the emergency use of in vitro diagnostic tests for detection of SARS-CoV-2 virus and/or diagnosis of COVID-19 infection under section 564(b)(1) of the Act, 21 U.S.C. 360bbb-3(b)(1), unless the authorization is terminated or revoked sooner. XR wrist LT 2Von 04-12-2022 XR wrist LT 2V [facility] Main [place] [address] [place] [address] XRay Report Signed Patient: Massimo Santoyo MR#: [id number] 232 : 1980 Acct:[id number] Age/Sex: 41 / M ADM Date: 04/12/22 Loc: [facility] [place] Room: Type: [facility] Attending Dr: Camryn Baker MD Copies to: Camryn Baker MD Ordering Provider: Camryn Baker MD Date of Service: 04/12/22 XR/XR wrist LT 2V: Closed displaced segmental fracture of shaft of left radius, XR wrist LT 2V 04/12/2022 3:11 PM SIGNS AND SYMPTOMS: Follow-up, Closed displaced segmental fracture of shaft of left radius, PROTOCOL: Frontal and lateral radiograph of the left wrist COMPARISON: 03/15/2022 FINDINGS: There is hardware fixation along the volar aspect of the distal radius with a comminuted radius fracture similar to the prior exam. There is evidence of slight interval healing without change in alignment. There is an ulnar styloid fracture which is not identified. XR/XR wrist LT 2V IMPRESSION: Hardware fixation of a comminuted fracture of the distal radius without hardware complication. No change in alignment. Impression dictated by: Mazin Boo M.D.04/12/2022 4:40 PM Dictation Location: [place] [address] Transcribed By: [facility] 04/12/22 1640 Dictated By: Mazin Boo II, MD 04/12/22 1638 Signed By: 04/12/22 1640 [facility] XR wrist LT 2V [facility] [employer] Other XR wrist LT 2V [facility] [employer] Other XR wrist LT 2V [address] [place] [address] [employer] Other XR wrist LT 2V [place] [id number] [facility] [employer] Other XR wrist LT 2V XRay Report [employer] Other XR wrist LT 2V Signed [employer] Other XR wrist LT 2V Patient: Massimo Santoyo MR#: [id number] [place] [employer] Other XR wrist LT 2V 232 [employer] Other XR wrist LT 2V : 1980 Acct:[id number] [employer] Other XR wrist LT 2V Age/Sex: 41 / M ADM Date: 04/12/22 [employer] Other XR wrist LT 2V Loc: [facility] Room: Type : [facility] [employer] Other XR wrist LT 2V Attending Dr: Mindy Baker MD [employer] Other XR wrist LT 2V Copies to: Camryn Baker MD [employer] Other XR wrist LT 2V Ordering Provider: Camryn Baker MD [employer] Other XR wrist LT 2V Date of Service: 04/12/22 [employer] Other XR wrist LT 2V XR/XR wrist LT 2V: Closed displaced segmental fracture of shaft of left [employer] Other XR wrist LT 2V radius, [employer] Other XR wrist LT 2V XR wrist LT 2V 04/12/2022 3:11 PM [employer] Other XR wrist LT 2V SIGNS AND SYMPTOMS: Follow-up, [employer] Other XR wrist LT 2V Closed displaced segmental fracture of shaft of left radius, [employer] Other XR wrist LT 2V PROTOCOL: Frontal an d lateral radiograph of the left wrist [employer] Other XR wrist LT 2V COMPARISON: 03/15/2022 [employer] Other XR wrist LT 2V FINDINGS: [employer] Other XR wrist LT 2V There is hardware fixation along the volar aspect of the distal radius with a comminuted radius [employer] Other XR wrist LT 2V fracture similar to the prior exam. There is evidence of slight interval healing without change in [employer] Other XR wrist LT 2V alignment. There is an ulnar styloid fracture which is not identified. [employer] Other XR wrist LT 2V XR/XR wrist LT 2V [employer] Other XR wrist LT 2V IMPRESSION: [employer] Other XR wrist LT 2V Hardware fixation of a comminuted fracture of the distal radius without hardware complication. No [employer] Other XR wrist LT 2V change in alignment. [employer] Other XR wrist LT 2V Impression dictated by: Mazin Boo M.D.04/12/2022 4:40 PM [employer] Other XR wrist LT 2V Dictation Location: [place] [address] [employer] Other XR wrist LT 2V Transcribed By: PWS 04/12/22 [facility] [employer] Other XR wrist LT 2V Dictated By: Mazin Boo II, MD 04/12/22 163 [employer] Other XR wrist LT 2V Signed By: [employer] Other XR wrist LT 2V 04/12/22 [employer] Other XR wrist LT 2Von 03-15-2022 XR wrist LT 2V [facility] Main [place] [address] [place] [address] XRay Report Signed Patient: Massimo Santoyo MR#: [id number] 232 : 1980 Acct:[id number] Age/Sex: 41 / M ADM Date: 03/15/22 Loc: [facility] [place] Room: Type: [facility] Attending Dr: Camryn Baker MD Copies to: Camryn Baker MD Ordering Provider: Camryn Baker MD Date of Service: 03/15/22 XR/XR wrist LT 2V: Closed displaced segmental fracture of shaft of left radius, LEFT WRIST - 2 views COMPARISON: 02/22/2022 CLINICAL DATA: Follow-up wrist fractures AP and lateral views were obtained. There is redemonstration of comminuted fractures involving the distal radial shaft down to the articular surface at the distal radius. There is a volar plate and multiple screws along the radius. Findings are similar to the prior. A mildly distracted ulnar styloid fracture is also again noted. There is radiocarpal joint space narrowing. No dislocation is seen. There is continued soft tissue swelling. XR/XR wrist LT 2V IMPRESSION: STABLE WRIST FRACTURES. Impression dictated by: Luisa Espinoza M.D.03/15/2022 3:57 PM Dictation Location: [facility]13 Transcribed By: [facility] 03/15/22 1557 Dictated By: Luisa Espinoza MD 03/15/22 1556 Signed By: 03/15/22 1557 Normal [facility] XR wrist LT 2V [facility] [employer] Other XR wrist LT 2V [facility] [employer] Other XR wrist LT 2V [address] [place] [address] [employer] Other XR wrist LT 2V [place] [id number] [facility] [employer] Other XR wrist LT 2V XRay Report [employer] Other XR wrist LT 2V Signed [employer] Other XR wrist LT 2V Patient: Massimo Santoyo MR#: [id number] [place] [employer] Other XR wrist LT 2V 232 [employer] Other XR wrist LT 2V : 1980 Acct:[id number] [place] [employer] Other XR wrist LT 2V Age/Sex: 41 / M ADM Date: 03/15/22 [employer] Other XR wrist LT 2V Loc: [facility] Room: Type : [facility] [employer] Other XR wrist LT 2V Attending Dr: Mindy Baker MD [employer] Other XR wrist LT 2V Copies to: Camryn Baker MD [employer] Other XR wrist LT 2V Ordering Provider: Camryn Baker MD [employer] Other XR wrist LT 2V Date of Service: 03/15/22 [employer] Other XR wrist LT 2V XR/XR wrist LT 2V: Closed displaced segmental fracture of shaft of left [employer] Other XR wrist LT 2V radius, [facility] [facility] Other XR wrist LT 2V LEFT WRIST - 2 views [employer] Other XR wrist LT 2V COMPARISON: 02/22/2022 [employer] Other XR wrist LT 2V CLINICAL DATA: Follow-up wrist fractures [employer] Other XR wrist LT 2V AP and lateral views were obtained. There is redemonstration of comminuted fractures involving the [employer] Other XR wrist LT 2V distal radial shaft down to the articular surface at the distal radius. There is a volar plate and [employer] Other XR wrist LT 2V multiple screws jeremiah g the radius. Findings are similar to the prior. A mildly distracted ulnar [employer] Other XR wrist LT 2V styloid fracture is also again noted. There is radiocarpal joint space narrowing. No dislocation is [employer] Other XR wrist LT 2V seen. There is continued soft tissue swelling. [employer] Other XR wrist LT 2V XR/XR wrist LT 2V [employer] Other XR wrist LT 2V IMPRESSION: [employer] Other XR wrist LT 2V STABLE WRIST FRACTURES. [employer] Other XR wrist LT 2V Impression dictated by: Luisa Espinoza M.D.03/15/2022 3:57 PM [employer] Other XR wrist LT 2V Dictation Location: [facility]-- [employer] Other XR wrist LT 2V Transcribed By: PWS 03/15/22 [facility] [employer] Other XR wrist LT 2V Dictated By: Luisa Espinoza MD 03/15/22 [facility] [employer] Other XR wrist LT 2V Signed By: [employer] Other XR wrist LT 2V 03/15/22 [facility] [employer] Other XR wrist LT 2Von 02-22-2022 XR wrist LT 2V [facility] Main [place] [address] [place] [address] XRay Report Signed Patient: Massimo Santoyo MR#: [id number] 232 : 1980 Acct:[id number] Age/Sex: 41 / M ADM Date: 02/22/22 Loc: [facility] [place] Room: Type: [facility] Attending Dr: Camryn Baker MD Copies to: Camryn Baker MD Ordering Provider: Camryn Baker MD Date of Service: 02/22/22 XR/XR wrist LT 2V: Closed displaced segmental fracture of shaft of left radius, XR wrist LT 2V 02/22/2022 9:58 AM SIGNS AND SYMPTOMS: Left distal radius fracture, follow-up PROTOCOL: Frontal and lateral radiographs of the left wrist COMPARISON: 01/31/2022 FINDINGS: There is plate and screw fixation of the distal radius similar to the prior exam without hardware complication or change in alignment. No significant healing is noted. There is communication of fracture lines of the radiocarpal joint space. There is a nondisplaced ulnar styloid fracture which is unchanged. There is diffuse soft tissue swelling. XR/XR wrist LT 2V IMPRESSION: Status post fixation of the comminuted distal radius fracture without hardware complication, malalignment, or significant interval healing. There is an unchanged mildly displaced fracture of the ulnar styloid. Impression dictated by: Mazin Boo M.D.02/22/2022 4:27 PM Dictation Location: [place] [address] Transcribed By: [facility] 02/22/221626 Dictated By: Mazin Boo II, MD 02/22/221625 Signed By: 02/22/221626 [facility] XR wrist LT 2V [facility] [employer] Other XR wrist LT 2V [facility] [employer] Other XR wrist LT 2V [address] [place] [address] [employer] Other XR wrist LT 2[place] [address] [facility] [employer] Other XR wrist LT 2V XRay Report [employer] Other XR wrist LT 2V Signed [employer] Other XR wrist LT 2V Patient: Massimo Santoyo MR#: [id number] [employer] Other XR wrist LT 2V 232 [employer] Other XR wrist LT 2V : 1980 Acct:[id number] [employer] Other XR wrist LT 2V Age/Sex: 41 / M ADM Date: 02/22/22 [employer] Other XR wrist LT 2V Loc: [facility] Room: Type : [facility] [employer] Other XR wrist LT 2V Attending Dr: Mindy Baker MD [employer] Other XR wrist LT 2V Copies to: Camryn Baker MD [employer] Other XR wrist LT 2V Ordering Provider: Camryn Baker MD [employer] Other XR wrist LT 2V Date of Service: 02/22/22 [employer] Other XR wrist LT 2V XR/XR wrist LT 2V: Closed displaced segmental fracture of shaft of left [employer] Other XR wrist LT 2V radius, [employer] Other XR wrist LT 2V XR wrist LT 2V 02/22/2022 9:58 AM [employer] Other XR wrist LT 2V SIGNS AND SYMPTOMS: Left distal radius fracture, follow-up [employer] Other XR wrist LT 2V PROTOCOL: Frontal an d lateral radiographs of the left wrist [employer] Other XR wrist LT 2V COMPARISON: 01/31/2022 [employer] Other XR wrist LT 2V FINDINGS: [employer] Other XR wrist LT 2V There is plate and screw fixation of the distal radius similar to the prior exam without hardware [employer] Other XR wrist LT 2V fracture lines of th e radiocarpal joint space. There is a nondisplaced ulnar styloid fracture which [employer] Other XR wrist LT 2V is unchanged. There is diffuse soft tissue swelling. [employer] Other XR wrist LT 2V XR/XR wrist LT 2V [employer] Other XR wrist LT 2V IMPRESSION: [employer] Other XR wrist LT 2V Status post fixation of the comminuted distal radius fracture without hardware complication, [employer] Other XR wrist LT 2V malalignment, or significant interval healing. [employer] Other XR wrist LT 2V There is an unchange d mildly displaced fracture of the ulnar styloid. [employer] Other XR wrist LT 2V Impression dictated by: Mazin Boo M.D.02/22/2022 4:27 PM [employer] Other XR wrist LT 2V Dictation Location: [facility] [employer] Other XR wrist LT 2V Transcribed By: PWS 02/22/22 [facility] [employer] Other XR wrist LT 2V Dictated By: Mazin Boo II, MD 02/22/22 [facility] [employer] Other XR wrist LT 2V Signed By: [employer] Other XR wrist LT 2V 02/22/22 [facility] [employer] Other Amphetamine Screen Ql (U)Ord ered By: Alexys German on 01-31-2022 Amphetamines Ql (U) Negative Negative [facility] Barbiturates [Presence] in U rineOrdered By: Alexys German on 01-31-2022 Barbiturates Ql (U) Negative Negative [facility] Benzodiazepines [Presence] i n UrineOrdered By: Alexys German on 01-31-2022 Benzodiazepines Ql (U) Negative Negative [facility] Cannabinoids [Presence] in U rine by Screen methodOrdered By: Alexys German on 01-31-2022 Cannabinoids Screen Ql (U) Positive Negative [facility] Comment on above: These are unconfirme d results and should not be used for legal purposes. Drug Cut-Off Concentration: AMPH 1000 ng/mL TRI 200 ng/mL ASHISH 200 ng/mL COCM 300 ng/mL OP 300 ng/mL PCP 25 ng/mL THC 20 ng/mL Drug Screen,Urineon 02-01-20 Amphetamine Screen,Urine Negative Normal Negative [facility] Comment on above: Performed By: #### U RDS #### [facility] [address] Barbiturate Screen,Urine Negative Normal Negative [facility] Comment on above: Performed By: #### U RDS #### [place] [address] [place] Benzodiazepines Screen,Urine Negative Normal Negative [facility] Comment on above: Performed By: #### U RDS #### [address] Cannabinoid Screen,Urine Positive High Negative [facility] Comment on above: Result Comment: Thes e are unconfirmed results and should not be used for legal purposes. Drug Cut-Off Concentration: AMPH 1000 ng/mL TRI 200 ng/mL ASHISH 200 ng/mL COCM 300 ng/mL OP 300 ng/mL PCP 25 ng/mL THC 20 ng/mL PERFORMED BY: [place] [address] PATHOLOGIST TECHNICAL SOLUTIONS ENGINEER SORAYA ESPINOZA M.D. Performed By: #### U RDS #### [address] Cocaine Screen,Urine Negative Normal Negative [facility] Comment on above: Performed By: #### U RDS #### [place] [address] [place] Opiate Screen,Urine Negative Normal Negative [facility] Comment on above: Performed By: #### U RDS #### [address] Phencyclidine Screen,Urine Negative Normal Negative [facility] Comment on above: Performed By: #### U RDS #### [address] Laboratory - Drug toxicology Ordered By: Alexys German on 01-31-2022 Opiates Ql (U) Negative Negative [facility] Phencyclidine Screen Ql (U)O rdered By: Alexys German on 01-31-2022 Phencyclidine Ql (U) Negative Negative [facility] Urine cocaine detectionOrder ed By: Alexys German on 01-31-2022 Cocaine Ql (U) Negative Negative [facility] XR wrist LT min 3V*on 2021 XR wrist LT min 3V* [facility] Main [address] [address] XRay Report Signed Patient: Massimo Santoyo MR#: [id number] 232 : 1980 Acct:[id number] Age/Sex: 41 / M ADM Date: 01/31/22 Loc: CT Room: Type: [facility] Attending Dr: Camryn Baker MD Copies to: Camryn Baker MD Ordering Provider: Camryn Baker MD Date of Service: 01/31/22 XR/XR forearm LT 2V*: s/p ORIF ([id number]) XR/XR wrist LT min 3V*: s/p ORIF L distal radius fracture Left forearm and left wrist 01/31/2022. CLINICAL DATA: Status post left forearm and wrist fracture repair. FINDINGS: 2 post-operative views of the left forearm and 3 post-operative views of the left wrist were obtained. There are postsurgical changes related to internal fixation of a fracture of the distal radius with a plate and screws. The hardware appears intact. Bony alignment is near anatomic. There is also a fracture of the ulnar styloid. XR/XR forearm LT 2V* IMPRESSION: Status post plate and screw fixation of a distal left radius fracture. Impression dictated by: Joshua Wallace Jr., M.D.01/31/2022 6:42 PM Dictation Location: [place] [address] Transcribed By: [facility] 01/31/22 184 Dictated By: Joshua Wallace Jr, MD 01/31/22 183 Signed By: 01/31/22 184 Normal [facility] XR wrist LT min 3V* [facility] Main [address] [address] XRay Report Signed Patient: Massimo Santoyo MR#: [id number] 232 : 1980 Acct:[id number] Age/Sex: 41 / M ADM Date: 01/31/22 Loc: CT Room: Type: [facility] Attending Dr: Camryn Baker MD Copies to: Camryn Baker MD Ordering Provider: Camryn Baker MD Date of Service: 01/31/22 XR/XR wrist LT min 3V*: LT WRIST ORIF Intraoperative fluoroscopy and fluoroscopic spot images of the left wrist 01/31/2022. CLINICAL DATA: Left wrist fracture repair. FINDINGS: 3 minutes and 40 seconds of intraoperative fluoroscopy were provided. 57 fluoroscopic spot images of the left wrist were obtained and demonstrate internal fixation of a fracture of the distal radius with a plate and screws. XR/XR wrist LT min 3V* IMPRESSION: Plate and screw fixation of a distal left radius fracture. Impression dictated by: Joshua Wallace Jr., M.D.01/31/2022 6:37 PM Dictation Location: [place] [address] Transcribed By: [facility] 01/31/221836 Dictated By: Joshua Wallace Jr, MD 01/31/221833 Signed By: 01/31/221836 Normal [facility] COVID[facility]19 [facility] [place] SARS-CoV-2 (COVID-19) RNA CHELSEA+probe Ql (Unsp spec) Negative Normal Negative [facility] Comment on above: Order Comment: Healt hcare Worker?: N Result Comment: Testing for SARS-CoV-2 by RT-PCR This test was developed and its performance characteristics determined by [employer] and validated at the [facility]. This test has not been FDA cleared or approved. This test has been authorized by FDA under an Emergency Use Authorization (EUA). This test has been validated in accordance with the FDA's Guidance Document (Policy for Diagnostics Testing in Laboratories Certified to Perform High Complexity Testing under CLIA prior to Emergency Use Authorization for Coronavirus Disease-2019 during the Public Health Emergency) issued on November 13, 2019. This test is only authorized for the duration of time the declaration that circumstances exist justifying the authorization of the emergency use of in vitro diagnostic tests for detection of SARS-CoV-2 virus and/or diagnosis of COVID-19 infection under section 564(b)(1) of the Act, 21 U.S.C. 360bbb-3(b)(1), unless the authorization is terminated or revoked sooner. PERFORMED BY: [facility] [place] [address] PATHOLOGIST TECHNICAL SOLUTIONS ENGINEER SOARYA ESPINOZA M.D. Performed By: #### C OVID 19 [facility] [place] ####[facility] [id number] Eduardo [place] [address] [facility] COVID-19 Positive/NegativeOr dered By: Camryn Baker on 01-27-2022 SARS-CoV-2 (COVID-19) N gene CHELSEA+probe Ql (Resp) Negative Negative [facility] Comment on above: Testing for SARS-CoV -2 by RT-PCR This test was developed and its performance characteristics determined by [employer] and validated at the [facility]. This test has not been FDA cleared or approved. This test has been authorized by FDA under an Emergency Use Authorization (EUA). This test has been validated in accordance with the FDA's Guidance Document (Policy for Diagnostics Testing in Laboratories Certified to Perform High Complexity Testing under CLIA prior to Emergency Use Authorization for Coronavirus Disease-2019 during the Public Health Emergency) issued on November 13, 2019. This test is only authorized for the duration of time the declaration that circumstances exist justifying the authorization of the emergency use of in vitro diagnostic tests for detection of SARS-CoV-2 virus and/or diagnosis of COVID-19 infection under section 564(b)(1) of the Act, 21 U.S.C. 360bbb-3(b)(1), unless the authorization is terminated or revoked sooner. Amphetamine Screen Ql (U)Ord ered By: Chele Hanks on 01-26-2022 Amphetamines Ql (U) Negative Negative [facility] Barbiturates [Presence] in U rineOrdered By: Chele Hanks on 01-26-2022 Barbiturates Ql (U) Negative Negative [facility] Benzodiazepines [Presence] i n UrineOrdered By: Chele Hanks on 01-26-2022 Benzodiazepines Ql (U) Negative Negative [facility] Cannabinoids [Presence] in U rine by Screen methodOrdered By: Chele Hanks on 01-26-2022 Cannabinoids Screen Ql (U) Positive Negative [facility] Comment on above: These are unconfirme d results and should not be used for legal purposes. Drug Cut-Off Concentration: AMPH 1000 ng/mL TRI 200 ng/mL ASHISH 200 ng/mL COCM 300 ng/mL OP 300 ng/mL PCP 25 ng/mL THC 20 ng/mL Drug Screen,Urineon 01-27-20 22 Amphetamine Screen,Urine Negative Normal Negative [facility] Comment on above: Order Comment: Comme nt IF PATIENT HAS USED MARIJUANA IN LAST 3 DAYS Performed By: #### U RDS #### [facility] [address] Barbiturate Screen,Urine Negative Normal Negative [facility] Comment on above: Order Comment: Comme nt IF PATIENT HAS USED MARIJUANA IN LAST 3 DAYS Performed By: #### U RDS #### [address] Benzodiazepines Screen,Urine Negative Normal Negative [facility] Comment on above: Order Comment: Comme nt IF PATIENT HAS USED MARIJUANA IN LAST 3 DAYS Performed By: #### U RDS #### [address] Cannabinoid Screen,Urine Positive High Negative [facility] Comment on above: Order Comment: Comme nt IF PATIENT HAS USED MARIJUANA IN LAST 3 DAYS Result Comment: Thes e are unconfirmed results and should not be used for legal purposes. Drug Cut-Off Concentration: AMPH 1000 ng/mL TRI 200 ng/mL ASHISH 200 ng/mL COCM 300 ng/mL OP 300 ng/mL PCP 25 ng/mL THC 20 ng/mL PERFORMED BY: [place] [address] PATHOLOGIST TECHNICAL SOLUTIONS ENGINEER SORAYA ESPINOZA M.D. Performed By: #### U RDS #### [place] [address] [place] Cocaine Screen,Urine Positive High Negative [facility] Comment on above: Order Comment: Comme nt IF PATIENT HAS USED MARIJUANA IN LAST 3 DAYS Performed By: #### U RDS #### [address] Opiate Screen,Urine Negative Normal Negative [facility] Comment on above: Order Comment: Comme nt IF PATIENT HAS USED MARIJUANA IN LAST 3 DAYS Performed By: #### U RDS #### [facility] [address] [place] [address] [place] Phencyclidine Screen,Urine Negative Normal Negative [facility] Comment on above: Order Comment: Comme nt IF PATIENT HAS USED MARIJUANA IN LAST 3 DAYS Performed By: #### U RDS #### [facility] [address] [place] [id number] [facility] Laboratory - Drug toxicology Ordered By: Chele Hanks on 01-26-2022 Opiates Ql (U) Negative Negative [facility] Phencyclidine Screen Ql (U)O rdered By: Chele Hanks on 01-26-2022 Phencyclidine Ql (U) Negative Negative [facility] Urine cocaine detectionOrder ed By: Chele Hanks on 01-26-2022 Cocaine Ql (U) Positive Negative [facility] Basophils Auto (Bld) [#/Vol] Ordered By: Camryn Baker on 01-24-2022 Basophils (Bld) [#/Vol] 0.1 10*3/uL 0.0-0.2 [facility] Basophils/100 WBC Auto (Bld) Ordered By: Camryn Baker on 01-24-2022 Basophils/100 WBC (Bld) 0.7 % . [facility] Blood hemoglobin measurement (mass/volume)Ordered By: Camryn Baker on 01-24-2022 Hemoglobin (Bld) [Mass/Vol] 15.1 g/dL 13.0-17.0 [facility] Blood leukocytes automated c ount (number/volume)Ordered By: Camryn Baker on 01-24-2022 WBC (Bld) [#/Vol] 9.4 10*3/uL 4.5-11.0 [facility] Body fluid albumin measureme nt (mass/volume)Ordered By: Camryn Baker on 01-24-2022 Albumin (Body fld) [Mass/Vol] 3.9 g/dL 3.2-5.5 [facility] COVID-19 [facility] 01-24-2022 SARS-CoV-2 (COVID-19) RNA CHELSEA+probe Ql (Unsp spec) Negative Normal Negative [facility] Comment on above: Order Comment: Healt hcare Worker?: N Result Comment: Testing for SARS-CoV-2 by RT-PCR This test was developed and its performance characteristics determined by [employer] and validated at the [facility]. This test has not been FDA cleared or approved. This test has been authorized by FDA under an Emergency Use Authorization (EUA). This test has been validated in accordance with the FDA's Guidance Document (Policy for Diagnostics Testing in Laboratories Certified to Perform High Complexity Testing under CLIA prior to Emergency Use Authorization for Coronavirus Disease-2019 during the Public Health Emergency) issued on November 13, 2019. This test is only authorized for the duration of time the declaration that circumstances exist justifying the authorization of the emergency use of in vitro diagnostic tests for detection of SARS-CoV-2 virus and/or diagnosis of COVID-19 infection under section 564(b)(1) of the Act, 21 U.S.C. 360bbb-3(b)(1), unless the authorization is terminated or revoked sooner. PERFORMED BY: [place] [address] PATHOLOGIST TECHNICAL SOLUTIONS ENGINEER SORAYA ESPINOZA M.D. Performed By: #### C OVID 19 [facility] #### [address] COVID-19 Positive/NegativeOr dered By: Camryn Baker on 01-24-2022 SARS-CoV-2 (COVID-19) N gene CHELSEA+probe Ql (Resp) Negative Negative [facility] Comment on above: Testing for SARS-CoV -2 by RT-PCR This test was developed and its performance characteristics determined by [employer]) and validated at the [facility]. This test has not been FDA cleared or approved. This test has been authorized by FDA under an Emergency Use Authorization (EUA). This test has been validated in accordance with the FDA's Guidance Document (Policy for Diagnostics Testing in Laboratories Certified to Perform High Complexity Testing under CLIA prior to Emergency Use Authorization for Coronavirus Disease-2019 during the Public Health Emergency) issued on November 13, 2019. This test is only authorized for the duration of time the declaration that circumstances exist justifying the authorization of the emergency use of in vitro diagnostic tests for detection of SARS-CoV-2 virus and/or diagnosis of COVID-19 infection under section 564(b)(1) of the Act, 21 U.S.C. 360bbb-3(b)(1), unless the authorization is terminated or revoked sooner. Complete Blood Count Auto Di ffon 01-24-2022 Basophils (Bld) [#/Vol] 0.1 10*3/uL Normal 0.0-0.2 [facility] Comment on above: Result Comment: PERF ORMED BY: [place] [address] PATHOLOGIST TECHNICAL SOLUTIONS ENGINEER SORAYA ESPINOZA M.D. Performed By: #### C MP, CBC #### [address] Basophils/100 WBC (Bld) 0.7 % Normal . [facility] Comment on above: Performed By: #### C MP, CBC #### [address] Eosinophils (Bld) [#/Vol] 0.2 10*3/uL Normal 0.0-0.45 [facility] Comment on above: Performed By: #### C MP, CBC #### [address] Eosinophils/100 WBC (Bld) 2.1 % Normal . [facility] Comment on above: Performed By: #### C MP, CBC #### [address] Erythrocyte distribution width (RBC) [Ratio] 15.2 % High 12.0-14.8 [facility] Comment on above: Performed By: #### C MP, CBC #### [address] Hematocrit (Bld) [Volume fraction] 43.1 % Normal 38.8-50.0 [facility] Comment on above: Performed By: #### C MP, CBC #### [address] Hemoglobin (Bld) [Mass/Vol] 15.1 g/dL Normal 13.0-17.0 [facility] Comment on above: Performed By: #### C MP, CBC #### [address] Lymphocytes (Bld) [#/Vol] 1.9 10*3/uL Normal 1.00-4.8 [facility] Comment on above: Performed By: #### C MP, CBC #### [address] Lymphocytes/100 WBC (Bld) 20.2 % Normal . [facility] Comment on above: Performed By: #### C MP, CBC #### [address] MCH (RBC) [Entitic mass] 29.8 pg Normal 27.5-35.2 [facility] Comment on above: Performed By: #### C MP, CBC #### [address] MCV (RBC) [Entitic vol] 85.1 fL Normal 83.5-101 [facility] Comment on above: Performed By: #### C MP, CBC #### [address] Mean Corpuscular HGB Conc 35.0 g/dL Normal 32.5-35.6 [facility] Comment on above: Performed By: #### C MP, CBC #### [address] Monocytes (Bld) [#/Vol] 0.8 10*3/uL Normal 0.0-0.8 [facility] Comment on above: Performed By: #### C MP, CBC #### [address] Monocytes/100 WBC (Bld) 8.1 % Normal . [facility] Comment on above: Performed By: #### C MP, CBC #### [address] Neutrophils (Bld) [#/Vol] 6.5 10*3/uL Normal 1.8-7.7 [facility] Comment on above: Performed By: #### C MP, CBC #### [address] Neutrophils/100 WBC (Bld) 68.9 % Normal . [facility] Comment on above: Performed By: #### C MP, CBC #### [facility] [address] Nucleated RBC/100 WBC (Bld) [Ratio] 0.1 % Normal 0-0.5 [facility] Comment on above: Performed By: #### C MP, CBC #### [address] Platelet mean volume (Bld) [Entitic vol] 7.4 fL Normal 6.6-10.1 [facility] Comment on above: Performed By: #### C MP, CBC #### [address] Platelets (Bld) [#/Vol] 388 10*3/uL Normal 150-450 [facility] Comment on above: Performed By: #### C MP, CBC #### [address] RBC (Bld) [#/Vol] 5.07 10*6/uL Normal 3.90-5.60 [facility] Comment on above: Performed By: #### C MP, CBC #### [address] WBC (Bld) [#/Vol] 9.4 10*3/uL Normal 4.5-11.0 [facility] Comment on above: Performed By: #### C MP, CBC #### [address] Comprehensive Metabolic Pane danny 01-24-2022 Albumin [Mass/Vol] 3.9 g/dL Normal 3.2-5.5 [facility] Comment on above: Performed By: #### C MP, CBC #### [facility] [address] [place] [address] Albumin/Globulin [Mass ratio] 1.2 {ratio} Normal [facility] Comment on above: Performed By: #### C MP, CBC #### [address] ALP [Catalytic activity/Vol] 43 U/L Normal 32-92 [facility] Comment on above: Result Comment: PERF ORMED BY: [place] [address] PATHOLOGIST TECHNICAL SOLUTIONS ENGINEER SORAYA ESPINOZA M.D. Performed By: #### C MP, CBC #### [address] ALT [Catalytic activity/Vol] 33 U/L Normal 10-60 [facility] Comment on above: Performed By: #### C MP, CBC #### [facility] [address] [place] [address] AST [Catalytic activity/Vol] 29 U/L Normal 10-42 [facility] Comment on above: Performed By: #### C MP, CBC #### [place] [address] [place] Bilirubin [Mass/Vol] 0.8 mg/dL Normal 0.3-1.2 [facility] Comment on above: Performed By: #### C MP, CBC #### [facility] [address] [place] [address] [place] Calcium [Mass/Vol] 10.0 mg/dL Normal 8.2-10.2 [facility] Comment on above: Performed By: #### C MP, CBC #### [facility] [address] [place] [address] [place] Chloride [Moles/Vol] 95 mmol/L Normal 95-114 [facility] Comment on above: Performed By: #### C MP, CBC #### [place] [address] [place] CO2 [Moles/Vol] 26.0 mmol/L Normal 22.0-30.0 [facility] Comment on above: Performed By: #### C MP, CBC #### [address] Creatinine [Mass/Vol] 0.86 mg/dL Normal 0.64-1.27 [facility] Comment on above: Performed By: #### C MP, CBC #### [address] Estimated GFR ( Yolette > 60 Normal [facility] Comment on above: Result Comment: GFR estimated reference range: According to KDOQI guidelines, <60 ml/min/1.73m2 is sufficient to diagnose a patient with chronic kidney disease. Performed By: #### C MP, CBC #### [address] Estimated GFR (Non- Am > 60 Normal [facility] Comment on above: Performed By: #### C MP, CBC #### [address] Globulin (S) [Mass/Vol] 3.2 g/dL [facility] Comment on above: Performed By: #### C MP, CBC #### [address] Glucose [Mass/Vol] 98 mg/dL Normal 70-100 [facility] Comment on above: Result Comment: [place] Glucose Reference Range is dependent on time and content of last meal. Glucose of more than 200 mg/dL in a nonstressed, ambulatory subject supports the diagnosis of Diabetes Mellitus. ADA recommended reference range Performed By: #### C MP, CBC #### [address] Potassium [Moles/Vol] 4.4 mmol/L Normal 3.5-5.1 [facility] Comment on above: Performed By: #### C MP, CBC #### [address] Protein [Mass/Vol] 7.1 g/dL Normal 6.1-7.9 [facility] Comment on above: Performed By: #### C MP, CBC #### [address] [place] [address] [place] Sodium [Moles/Vol] 136 mmol/L Normal 136-146 [facility] Comment on above: Performed By: #### C MP, CBC #### [facility] [address] Urea nitrogen [Mass/Vol] 10 mg/dL Normal 9-23 [facility] Comment on above: Performed By: #### C MP, CBC #### [facility] [address] Creatinine and Glomerular fi ltration rate.predicted panel (S/P/Bld)Ordered By: Camryn Baker on 01-24-2022 Creatinine [Mass/Vol] 0.86 mg/dL 0.64-1.27 [facility] ECG 12 lead ECGon 01-24-2022 ECG 12 lead ECG [facility] Main [place] [address] [place] [address] Electrocardiograph Report Signed Patient: Massimo Santoyo MR#: [id number] 232 : 1980 Acct:[id number] Age/Sex: 41 / M ADM Date: 01/24/22 Loc: Room: Type: [facility] Attending Dr: Camryn Baker MD Ordering Provider: Camryn Baker MD Date of Service: 01/24/22 ECG/ECG 12 lead ECG: ORIF LEFT WRIST Copies to: Test Reason : Blood Pressure : / mmHG Vent. Rate : 056 BPM Atrial Rate : 056 BPM P-R Int : 226 ms QRS Dur : 096 ms QT Int : 418 ms P-R-T Axes : 020 040 012 degrees QTc Int : 403 ms Sinus bradycardia with 1st degree AV block Otherwise normal ECG When compared with ECG of 04-APR-2021 17:10, No significant change was found Confirmed by ZACH GAYTAN MD ([id number]) on 01/24/2022 8:11:38 PM Referred By: MARISELA Electronically Signed By:ZACH GAYTAN MD Transcribed By: MUS Signed By Zach Gaytan MD 0 01/24/222010 [facility] Eosinophils Auto (Bld) [#/Vo l]Ordered By: Camryn Baker on 01-24-2022 Eosinophils (Bld) [#/Vol] 0.2 10*3/uL 0.0-0.45 [facility] Eosinophils/100 WBC Auto (Bl d)Ordered By: Camryn Baker on 01-24-2022 Eosinophils/100 WBC (Bld) 2.1 % . [facility] Erythrocyte distribution wid th Auto (RBC) [Ratio]Ordered By: Camryn Baker on 01-24-2022 Erythrocyte distribution width (RBC) [Ratio] 15.2 % 12.0-14.8 [facility] Estimated glomerular filtrat ion rate (GFR) non- AmericanOrdered By: Camryn Baker on 01-24-2022 GFR/1.73 sq M.predicted among non-blacks MDRD (S/P/Bld) [Vol rate/Area] > 60 mL/Min [facility] Globulin Calc (S) [Mass/Vol] Ordered By: Camryn Baker on 01-24-2022 Globulin (S) [Mass/Vol] 3.2 g/dL [facility] Hematocrit Auto (Bld) [Volum e fraction]Ordered By: Camryn Baker on 01-24-2022 Hematocrit (Bld) [Volume fraction] 43.1 % 38.8-50.0 [facility] Laboratory - Hematology and Cell countsOrdered By: Camryn Baker on 01-24-2022 Nucleated RBC/100 WBC (Bld) [Ratio] 0.1 % 0-0.5 [facility] Lymphocytes Auto (Bld) [#/Vo l]Ordered By: Camryn Baker on 01-24-2022 Lymphocytes (Bld) [#/Vol] 1.9 10*3/uL 1.00-4.8 [facility] Lymphocytes/100 WBC Auto (Bl d)Ordered By: Camryn Baker on 01-24-2022 Lymphocytes/100 WBC (Bld) 20.2 % . [facility] MCH Auto (RBC) [Entitic mass ]Ordered By: Camryn Baker on 01-24-2022 MCH (RBC) [Entitic mass] 29.8 pg 27.5-35.2 [facility] MCHC Auto (RBC) [Mass/Vol]Or dered By: Camryn Baker on 01-24-2022 MCHC (RBC) [Mass/Vol] 35.0 g/dL 32.5-35.6 [facility] MCV Auto (RBC) [Entitic vol] Ordered By: Camryn Baker on 01-24-2022 MCV (RBC) [Entitic vol] 85.1 fL 83.5-101 [facility] Monocytes Auto (Bld) [#/Vol] Ordered By: Camryn Baker on 01-24-2022 Monocytes (Bld) [#/Vol] 0.8 10*3/uL 0.0-0.8 [facility] Monocytes/100 WBC Auto (Bld) Ordered By: Camryn Baker on 01-24-2022 Monocytes/100 WBC (Bld) 8.1 % . [facility] Neutrophils Auto (Bld) [#/Vo l]Ordered By: Camryn Baker on 01-24-2022 Neutrophils (Bld) [#/Vol] 6.5 10*3/uL 1.8-7.7 [facility] Neutrophils/100 WBC Auto (Bl d)Ordered By: Camryn Baker on 01-24-2022 Neutrophils/100 WBC (Bld) 68.9 % . [facility] No Panel InformationOrdered By: Camryn Baker on 01-24-2022 Estimated GFR () > 60 mL/Min [facility] Comment on above: GFR estimated refere nce range: According to KDOQI guidelines, <60 ml/min/1.73m2 is sufficient to diagnose a patient with chronic kidney disease. Pharmacy Creatinine Clearance (Chem N/A [facility] Platelet mean volume Auto (B ld) [Entitic vol]Ordered By: Camryn Baker on 01-24-2022 Platelet mean volume (Bld) [Entitic vol] 7.4 fL 6.6-10.1 [facility] Platelets Auto (Bld) [#/Vol] Ordered By: Camryn Baker on 01-24-2022 Platelets (Bld) [#/Vol] 388 10*3/uL 150-450 [facility] Protein [Mass/volume] in Ser um or PlasmaOrdered By: Camryn Baker on 01-24-2022 Protein [Mass/Vol] 7.1 g/dL 6.1-7.9 [facility] RBC Auto (Bld) [#/Vol]Ordere d By: Camryn Baker on 01-24-2022 RBC (Bld) [#/Vol] 5.07 10*6/uL 3.90-5.60 [facility] Serum or plasma alanine prather otransferase measurement without P-5'-P (enzymatic activiOrdered By: Camryn Baker on 01-24-2022 ALT No additional P-5'-P [Catalytic activity/Vol] 33 U/L 10-60 [facility] Serum or plasma albumin/glob ulin mass ratioOrdered By: Camryn Baker on 01-24-2022 Albumin/Globulin [Mass ratio] 1.2 {ratio} [facility] Serum or plasma alkaline troy sphatase measurement (enzymatic activity/volume)Ordered By: Camryn Baker on 01-24-2022 ALP [Catalytic activity/Vol] 43 U/L 32-92 [facility] Serum or plasma aspartate am inotransferase measurement (enzymatic activity/volume)Ordered By: Camryn Baker on 01-24-2022 AST [Catalytic activity/Vol] 29 U/L 10-42 [facility] Serum or plasma calcium nathaniel urement (mass/volume)Ordered By: Camryn Baker on 01-24-2022 Calcium [Mass/Vol] 10.0 mg/dL 8.2-10.2 [facility] Serum or plasma chloride chanda surement (moles/volume)Ordered By: Camryn Baker on 01-24-2022 Chloride [Moles/Vol] 95 mmol/L 95-114 [facility] Serum or plasma glucose nathaniel urement (mass/volume)Ordered By: Camryn Baker on 01-24-2022 Glucose [Mass/Vol] 98 mg/dL 70-100 [facility] Comment on above: ADA recommended refe rence range Random Glucose Reference Range is dependent on time and content of last meal. Glucose of more than 200 mg/dL in a nonstressed, ambulatory subject supports the diagnosis of Diabetes Mellitus. Serum or plasma potassium me asurement (moles/volume)Ordered By: Camryn Baker on 01-24-2022 Potassium [Moles/Vol] 4.4 mmol/L 3.5-5.1 [facility] Serum or plasma sodium measu rement (moles/volume)Ordered By: Camryn Baker on 01-24-2022 Sodium [Moles/Vol] 136 mmol/L 136-146 [facility] Serum or plasma total biliru bin measurement (mass/volume)Ordered By: Camryn Baker on 01-24-2022 Bilirubin [Mass/Vol] 0.8 mg/dL 0.3-1.2 [facility] Serum or plasma total carbon dioxide measurement (moles/volume)Ordered By: Camryn Baker on 01-24-2022 CO2 [Moles/Vol] 26.0 mmol/L 22.0-30.0 [facility] Serum or plasma urea nitroge n measurement (mass/volume)Ordered By: Camryn Baker on 01-24-2022 Urea nitrogen [Mass/Vol] 10 mg/dL 9-23 [facility] XR ELBOW LT MIN 3 VIEWSon XR ELBOW LT MIN 3 VIEWS EXAM: XR WRIST LT 2V, XR FOREARM LT 2 VIEWS, XR ELBOW LT MIN 3 VIEWS, XR ELBOW LT 2V, XR WRIST LT MIN 3 V INDICATION: Acute left upper extremity injury. COMPARISON: None. TECHNIQUE: Left wrist, 2 views FINDINGS: Comminuted fractures of the distal radial diaphysis and metaphysis extending into the radiocarpal joint. There is dorsal apex angulation of the radial metaphyseal fracture and volar apex angulation of the distal diaphyseal radial fracture. Mild impaction of the distal radius and mild subluxation of the distal radioulnar joint. Mildly displaced ulnar styloid fracture. No other fracture or dislocation of the left radius or ulna identified proximally. No elbow fracture or dislocation. No joint effusion. Olecranon enthesophyte. Posterior elbow soft tissue swelling. IMPRESSION: 1. Comminuted, impacted and angulated distal radial fractures with subluxation of the distal radioulnar joint. The fracture extends into the radiocarpal joint. 2. Ulnar styloid fracture. 3. No acute osseous abnormality of the left elbow. Electronically authenticated by: LUISA WEIR Date: 2022-01-19 15:28 Normal [facility] Lipid Panelon 01-18-2022 Cholesterol [Mass/Vol] 146 mg/dL Normal <200 No [facility] [employer] Comment on above: Order Comment: [facility] Testing performed at: [employer], [facility], [address] [place] [address], [address] [place] [address], [address] [place] [address], Dross Skimmer: Vaibhav Moreno MD [facility] Collection Date/Time: [facility] Results Received Date/Time: [facility] Reported Date/Time: Performed By: #### L IPD #### [facility] Default [address] [place] [address] Cholesterol in HDL [Mass/Vol] 39 mg/dL Low > OR = 40 [facility] [employer] Comment on above: Order Comment: [facility] Testing performed at: [employer], [facility], [address] [place] [address], [address] [place] [address], [address] [place] [address], Dross Skimmer: Vaibhav Moreno MD [facility] Date/Time: [facility] Results Received Date/Time: [facility] Reported Date/Time: Performed By: #### L IPD #### [facility] [address] [place] [address] Cholesterol in LDL [Mass/Vol] 69 mg/dL Normal [facility] [employer] Comment on above: Order Comment: [facility] Testing performed at: [facility], [address] [place] [address], [address] [place] [address], [address] [place] [address], Dross Skimmer: Vaibhav Moreno MD [facility] Collection Date/Time: [facility] Results Received Date/Time: [facility] Reported Date/Time: Result Comment: Refe rence range: <100 Desirable range <100 mg/dL for primary prevention; <70 mg/dL for patients with CHD or diabetic patients with > or = 2 CHD risk factors. LDL-C is now calculated using the Nadeem-Roberts calculation, which is a validated novel method providing better accuracy than the Friedewald equation in the estimation of LDL-C. Nadeem SS et al. DEVEN. 2013;310(19): 8299-4743 (http://education.REALTIME.CO/faq/YTF240) Performed By: #### L IPD #### [facility] [address] [place] [address] NON HDL CHOLESTEROL 107 mg/dL (calc) Normal <130 [facility]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 cholesterol Medical History high blood pressure Medical History Gout Medical History CT Surgical History 3 stents Surgical History Left Wrist ORIF [facility] Other Hospital Discharge instructions Additional Instructions DISCHARGE INSTRUCTIONS FOR UPPER ENDOSCOPY WHAT TO EXPECT: - You may feel full, gassy or cramping after your procedure. In some cases, this may be from a few hours to a day. Walking may help relieve the discomfort. - Your throat may feel sore today from the scope that the doctor passed through your throat to visualize your stomach. Take a throat lozenge or suck on ice to ease the discomfort. - You may notice some streaks of blood in your sputum if the doctor has taken a biopsy. - You should begin to recover from anesthesia within 1 hour of the procedure, however may feel groggy for the next 24 hours. DO's AND DON'Ts: - Call your doctor right away if you have a hard abdomen, severe pain, vomiting or if you cough up large amounts of blood. - Call your doctor if you develop any rashes, hives or difficulty breathing. - If you take 81 mg aspirin for your heart it is safe to resume this medication. - If you take other blood thinner medications your doctor will instruct you when these can safely be resumed. - Do NOT drive for 24 hours. - Do NOT operate machinery such as power tools, lawn mowers, snow blowers, sewing machines, etc. for 24 hours. - Avoid alcoholic beverages and drugs for allergies, nerves, or sleep. - Do NOT stay alone. Do NOT leave your child unattended. - Do NOT make important personal or business decisions or sign any legal documents. - Eat solid foods and drink liquids in smaller amounts than usual until normal appetite returns. If you should experience an upset stomach, liquids high in sugar content (soda, Cory-Aid, non-acid juices) are recommended. - Do NOT smoke. - Do take it easy today. You need not stay in bed, but avoid strenuous activities such as jogging or working out. FOLLOW UP & RECOMMENDATIONS: - Take pantoprazole 20 mg daily, 30 min before your first meal of the day - Follow up with Dr. Negrete as needed - Notify the doctor if you have any problems. - Follow up with PCP. - Office number [phone].[facility] Work Phone: Progress note Author Alexys German [facility] January 26, 2022 12:36pm Note Date/Time January 26, 2022 12:3 6pm [facility] [address] [place] [address] Anesthesia Progress Note Signed Patient: Massimo Santoyo MR#: [id number] : 1980 Acct:[id number] Age/Sex: 41 / M Adm Date: 2 Loc: CT Room: Type: REG S DC Attending Dr: Camryn Baker MD Copies to: ~ Anesthesia Progress Note Narrative Narrative: pre-op tox screen positive for cocaine. Will d/w Dr. Baker and reschedule, check pre-op tox screen again on admission. Documented By: Alexys German Jr, MD 01/26/22 1 234 Signed By: <Electronically signed by Alexys German Jr, MD> 01/26/22 1238 [facility] Work Phone: Family History Relationship Condition Age at Onset Recorded Date/T manish Not Specified Coronary artery disease Unknown father Chronic obstructive pulmonary disease Unk nown brother Diabetes mellitus Unknown Relationship Condition Age at Onset Recorded Date/T manish Not Specified Coronary artery disease Unknown father Chronic obstructive pulmonary disease Unk nown Malignant neoplasm of lung Unknown brother Diabetes mellitus Unknown Unknown Family Member Name Dates Details Family history of myocardial infarction: Mother(V17.3, Z82.49) Status:Active Family history of diabetes m ellitus: Mother, Father(V18.0, Z83.3) Status:Active Family history of chronic ob structive pulmonary disease: Father(V17.6, Z82.5) Status:Active Unknown Family Member Name Dates Details Family history of chronic ob structive pulmonary disease: Father(V17.6, Z82.5) Status:Active Family history of diabetes m ellitus: Mother, Father(V18.0, Z83.3) Status:Active Family history of myocardial infarction: Mother(V17.3, Z82.49) Status:Active Unknown Family Member Name Dates Details Family history of chronic ob structive pulmonary disease: Father(V17.6, Z82.5) Status:Active Family history of diabetes m ellitus: Mother, Father(V18.0, Z83.3) Status:Active Family history of myocardial infarction: Mother(V17.3, Z82.49) Status:Active Unknown Family Member Name Dates Details Family history of chronic ob structive pulmonary disease: Father(V17.6, Z82.5) Status:Active Family history of diabetes m ellitus: Mother, Father(V18.0, Z83.3) Status:Active Family history of myocardial infarction: Mother(V17.3, Z82.49) Status:Active Unknown Family Member Name Dates Details Family history of chronic ob structive pulmonary disease: Father(V17.6, Z82.5) Status:Active Family history of diabetes m ellitus: Mother, Father(V18.0, Z83.3) Status:Active Family history of myocardial infarction: Mother(V17.3, Z82.49) Status:Active Summary Purpose Advance Directives Advance Directive Response Recorded Date/ Time Advance Directives No December 16, 2018 12:59am Chief Complaint and Reason for Visit Chief Complaint Wrist Pain Chief Complaint Wrist Pain Wrist Pain Chief Complaint Wrist Pain Wrist Pain wrist fracture Chief Complaint Wrist Pain Wrist Pain wrist fracture wrist fracture Chief Complaint Wrist Pain Wrist Pain wrist fracture wrist fracture S52.362A S52.362A S52.362A Chief Complaint S52.362A S52.362A S52.362A Difficulty Swallowing, GERD Difficulty Swallowing, GERD Chief Complaint S52.362A S52.362A Difficulty Swallowing, GERD Difficulty Swallowing, GERD Chief Complaint * MASSIMO SANTOYO is being seen for an annual follow-up of. * 42-year-old gentleman returns for follow-up for the first time since April 2021. Patient has a history of Non-ST elevation myocardial infarction, December 2018 with primary revascularizations of the ostial/proximal circumflex, provisional balloon angioplasties of the first and second marginal branches; chronic total occlusion revascularization of the mid LAD and diagonal branch with stenting of these 2 vessels, provisional balloon angioplasty of the second diagonal branch; with mild LV dysfunction. * He underwent stress testing this past October and passed this albeit, inadequate heart rate but at 8.5 METS with no ischemic ECGs or symptoms. * He has underlying obesity, hypertension, family history of precocious coronary disease, he remains on high-dose statin and DAPT therapies, does not smoke and does not have diabetes. * We have no recent blood work, will require this from his primary care physician or obtain lipid panel ourselves, continue recommend dietary discretion, weight loss and exercise and will continue withDAPT therapy for the time being we will follow-up in 1 year Additional Source Comments Goals (unrecognized section and content) Goals may be documented in a n alternate sectionGoals may be documented in an alternate sectionNo InformationNo InformationNo InformationNo InformationNo InformationNo InformationNo InformationGoals may be documented in an alternate sectionNo InformationNo Information (unrecognized sect ion and content) No Status Records FoundNo Status Records FoundNo Status Records FoundNo Status Records FoundNo Status Records FoundNo Status Records Found INFORMATION SOURCE (unrecogn ized section and content) DATE CREATED AUTHOR 01/19/2022 [facility] DATE CREATED AUTHOR AUTHOR'S ORGANIZ ATION 09/21/2022 [facility] DATE CREATED AUTHOR AUTHOR'S ORGANIZ ATION 09/29/2022 [facility] DATE CREATED AUTHOR AUTHOR'S ORGANIZ ATION 12/05/2022 [facility] DATE CREATED AUTHOR AUTHOR'S ORGANIZ ATION 12/14/2022 [facility] DATE CREATED AUTHOR AUTHOR'S ORGANIZ ATION 12/14/2022 [employer] [facility] (unrecognized sec tion and content) Team Status: Inactive Member Role Status Dates Johnny Ronquillo MD Primary Care Provider Active Camryn Baker MD Attending Provider Active Team Status: Active Member Role Status Dates Johnny Ronquillo MD Primary Care Provider Active Team Status: Inactive Member Role Status Dates Johnny Ronquillo MD Primary Care Provider Active Negro Negrete MD Attending Provider Active REASON FOR VISIT (unrecogniz ed section and content) DEARecheck Left WristS/P MARCOS F LEFT WRISTRecheck Left WristEMAIL PPWRecheck Left WristRecheck Left WristNo Informationlabs FOR RECORDS PERTAINING TO PATIENTS WHO ARE OR HAVE BEEN ENROLLED IN A CHEMICAL DEPENDENCY/SUBSTANCEABUSE PROGRAM, SOME INFORMATION MAY BE OMITTED. This clinical summary was aggregated from multiple sources. Caution should be exercised in using it in the provision of clinical care. This summary normalizes information from multiple sources, and as a consequence, information in this document may materially change the coding, format and clinical context of patient data. In addition, data may be omitted in some cases. CLINICAL DECISIONS SHOULD BE BASED ON THE PRIMARY CLINICAL RECORDS. [employer] [facility]. provides no warranty or guarantee of the accuracy or completeness of information in this document.
--- NOTE | 2023-10-05 10:18 | US_ITS ---
[address] [address] Patient Name: SHIRA MONTELONGO MRN: [id number] date: 1980 Sex: M Assigned Patient Location: US Current Patient Location: US Accession/Order Number: [id number] Exam Date: 10/05/2023 10:40 Report Date: 10/05/2023 11:27 At the request of: IVY DUNBAR Procedure: US abdomen limited EXAMINATION: US abdomen limited HISTORY: Generalized Lump Left Side Abdomen R19.07 ; palpable soft lump anterior to lower left ribs COMPARISON: No relevant comparison available. TECHNIQUE: Transabdominal evaluation of the right upper quadrant. FINDINGS: Normal-appearing subcutaneous fat within left upper quadrant corresponding to area of concern. Comparison to same area on right side shows that the left subcutaneous fat in this focal area is slightly thicker (3.1 cm versus 2.4 cm). No fluid collection, definable kerr, or appreciable mass. US/US abdomen limited IMPRESSION: 1. Focal area of slightly thickened subcutaneous fat without definable kerr; possible nonencapsulated or very thinly encapsulated lipoma. 2. No soft tissue mass or fluid collection. Electronically authenticated by: FLORENTINO CARRASQUILLO Date: 10/05/2023 11:27
--- NOTE | 2023-10-05 10:18 | US_ITS ---
The [address] [address] Patient Name: SHIRA MONTELONGO MRN: [id number] date: 1980 Sex: M Assigned Patient Location: US Current Patient Location: US Accession/Order Number: [id number] Exam Date: 10/05/2023 10:40 Report Date: 10/05/2023 11:30 At the request of: IVY DUNBAR Procedure: US soft tissue head and neck EXAM: US soft tissue head and neck HISTORY: Left Side Lump Neck R22.1 COMPARISON: None. TECHNIQUE: Percutaneous ultrasound evaluation of left side of neck. FINDINGS: Several prominent lymph nodes in area of concern, largest is 3.2 x 1.4 x 0.9 cm. These appear to maintain a normal fatty hilum and normal blood flow. US/US soft tissue head and neck IMPRESSION: 1. Several slightly prominent, but otherwise benign-appearing lymph nodes correspond to patient's palpable lump. While nonspecific and not overtly suspicious, consider CT neck soft tissues with IV contrast if there remains clinical concern. Otherwise consider clinical and/or ultrasound follow-up to document clearing. Electronically authenticated by: FLORENTINO CARRASQUILLO Date: 10/05/2023 11:30
--- OUTSIDE RECORDS SUMMARY | 2023-10-05 10:26 | XMS_ITS | CCD ---
Author Name Unknown Address [address] [place] [address] Organization [facility] Care Team Providers Care Yeast Pumper Name Role Phone Unavailable Unavailable MD Johnny Ronquillo Primary Care Provider MD Camryn Baker Attending Provider Camryn Baker Unavailable Negro Negrete Unavailable MD Johnny Ronquillo Primary Care Provider MD Camryn Baker Attending Provider MD Negro Negrete Attending Provider [phone] MD Johnny Ronquillo Primary Care Provider MD [...] Care Provider MD Camryn Baker Attending Provider [phone] Calvey, Camryn R Admitting Unavailable Calvey, Camryn R Attending Unavailable Nu Mine, Rugen M Primary Care Unavailable Calvey, Camryn R Admitting Unavailable Calvey, Camryn R Attending Unavailable Nu Mine, Rugen M Primary Care Unavailable Calvey, Camryn R Admitting Unavailable Calvey, Camryn R Attending Unavailable Nu Mine, Rugen M Primary Care Unavailable Calvey, Camryn R Admitting Unavailable Calvey, Camryn R Attending Unavailable Nu Mine, Rugen M Primary Care Unavailable Negro Negrete Admitting Unavailable Negro Negrete Attending Unavailable Nu Mine, Rugen M Primary Care Unavailable Calvey, Camryn R Admitting Unavailable Calvey, Camryn R Attending Unavailable Nu Mine, Rugen M Primary Care Unavailable Calvey, Camryn R Admitting Unavailable Calvey, Camryn R Attending Unavailable Nu Mine, Rugen M Primary Care Unavailable Calvey, Camryn R Admitting Unavailable Calvey, Camryn R Attending Unavailable Shima, Rugen M Primary Care Unavailable Calvey, Camryn R Admitting Unavailable Calvey, Camryn R Attending Unavailable Shima, Rugen M Primary Care Unavailable Negro Negrete Admitting Unavailable Negro Negrete Attending Unavailable Nu Mine, Rugen M Primary Care Unavailable Calvey, Camryn R Admitting Unavailable Calvey, Camryn R Attending Unavailable Nu Mine, Rugen M Primary Care Unavailable Neisha Noyola Referring Unavailable Neisha Noyola Attending Unavailable Shima, Dr. Johnny Lee Primary Care UnavailKatey Ulrich Unavailable Allergies Allergy Classification Reported Allergen(s) Allergy Type Date of Onset Reaction(s) Facility (8 sources) Lisinopril; Translations: [Lisinopril TABS] Drug Allergy Cough, Unknown [facility] 250 DO Work Phone: (10 sources) Iodinated Contrast Media; Translations: [Iodinated Contrast Media] Allergy to substance 1 [facility] (5 sources) Contrast media Allergy to substance (finding) [facility] 250 DO Work Phone: (1 source) Iodine (And Iodine Containting Drugs) Drug allergy (disorder) [facility] (2 sources) Contrast media Propensity to adverse reactions Unknown [employer] Other Medications Current Medications Medication Drug Class(es) Dates Sig (Normalized) Sig (Original) [id number] 200 actuat albuterol 0.09 mg/actuat metered dose [...] tablet by mouth every twenty-four hours Olmesartan-amLODI Aiken-HCTZ 40-10-25 MG 1 tablet Orally Once a day Active azelastine hydrochloride 0.137 mg/actuat metered dose nasal spray (2 sources) Histamine-1 Receptor Antagonist Azelastine HCl 0.1 % 2 sprays in each nostril Nasally As needed for 14 days Active cetirizine hydrochloride 10 mg oral tablet (3 sources) Histamine-1 Receptor Antagonist Start: 2 take 10 mg by mouth once daily Cetirizine Active 10 MG PO Daily May 10, 2022 12:00am citalopram 20 mg oral tablet (2 sources) Serotonin Reuptake Inhibitor take 1 tablet by mouth every twenty-four hours Citalopram Hydrobromide 20 MG 1 tablet Orally Once a day Active Magnesium (2 sources) Magnesium 400 MG as directed Orally Active nitroglycerin 0.4 mg sublingual tablet (12 sources) Nitrate Vasodilator Start: 9 Nitroglycerin Active [...] 2021 5:45pm amLODIPine 10 mg oral tablet (20 sources) Dihydropyridine Calcium Channel Belkis Start: 04-04-2021 [...] 2022 9:47am furosemide 40 mg oral tablet (3 sources) Loop Diuretic Start: 09-11-2022 take 1 [...] pantoprazole 20 mg delayed release oral tablet (6 sources) Proton Pump Inhibitor Start: 05-10-2022 take [...] 2022 12:15pm valsartan 320 mg oral tablet (20 sources) Angiotensin 2 Receptor Belkis Start: 04-04-2021 take 1 tablet by mouth once daily Valsartan 320 MG Oral Tablet TAKE 1 TABLET DAILY. Quantity: 90 Refills: 3 Ordered: 12-Dec-2022 Neisha Noyola DO Start : 09-Dec-2022 Active Problems Active Problems Problem Classification Problem Date Documented Da te Episodic/Chronic Abdominal hernia (9 sources) Umbilical hernia; Translations: [Umbilical hernia without obstruction or gangrene] 05-09-2021 Episodic Acute myocardial infarction (14 sources) Myocardial infarction; Translations: [Non-ST elevation (NSTEMI) myocardial infarction] 12-16-2018 Chronic Administrative/social admission (4 sources) Patient encounter status; Translations: [Health examination of defined subpopulations] Onset: 3 Episodic Anxiety disorders (2 sources) Anxiety; Translations: [Anxiety disorder, unspecified] Chronic Coronary atherosclerosis and other heart disease (13 sources) Ischemic myocardial dysfunction; Translations: [Other specified forms of chronic ischemic heart disease] Onset: 3 Chronic Disorders of lipid metabolism (8 sources) Mixed hyperlipidemia; Translations: [Mixed hyperlipidemia] Chronic Esophageal disorders (7 sources) Gastroesophageal reflux disease; Translations: [Gastro-esophageal reflux disease without esophagitis] Onset: 2 Resolved: 2 Chronic Essential hypertension (7 sources) Essential hypertension; Translations: [Unspecified essential hypertension] Chronic Gout and other crystal arthropathies (7 sources) Gout; Translations: [Gout, unspecified] Chronic Mood disorders (2 sources) Recurrent major depression in partial remission; Translations: [Major depressive disorder, recurrent, in partial remission] Chronic Other gastrointestinal disorders (6 sources) Dysphagia; Translations: [Dysphagia, unspecified] Episodic Other [...] unspecified] Onset: 2 Chronic Residual codes; unclassified (2 sources) Obstructive sleep apnea syndrome; Translations: [Obstructive sleep [...] 01-20-2022 Episodic Other aftercare (1 source) Other long-term (current) drug therapy; Translations: [[facility] CURRENT DRUG THERAPY] Onset: 01-20-2022 Episodic Other [...] Recorded: 12Dec2022 02:29PM Heart Rate80, R Radial Hyfujvdk569, LUE, Sitting Kadndhyji66, LUE, Sitting Fnvuew424 lb Tobacco Useb) No Physical Exam (more content not included)... Normal [employer] Tobacco Screening.on 023 Tobacco use status CPHS b) No -[facility] 250 DO Work Phone: XR wrist LT min 3V*on 2022 XR wrist LT min 3V* [facility] [place] [address] [place] [address] XRay Report Signed Patient: Massimo Santoyo MR#: [id number] 232 : 1980 Acct:[id number] Age/Sex: 42 / M ADM Date: 11/01/22 Loc: [facility] Room: Type: [facility] Attending Dr: Camryn Baker MD Copies [...] Luisa Espinoza M.D.11/01/2022 4:48 PM Dictation Location: [place] [address] Transcribed By: [facility] 11/01/221647 Dictated By: Luisa Espinoza MD 11/01/221645 Signed By: 11/01/221647 [facility] Cardiac Stress Teston 2022 Cardiac Stress Test [facility] [place] [address] [place] [address], [address], [place] [address] Exercise Stress Test Patient Name: MASSIMO SANTOYO Ordering Physician: [id number] Neisha Noyola DO Study Date: 09/19/2022 Reading Physician: [id number] Jenny Flores MD, [facility] MRN/PID: [id number] Supervising Physician: [id number] Jenny Flores MD, [facility] Accession/Order#: [id number] Referring Physician: NEISHA NOYOLA Date of : 1980 PCP: Johnny Ronquillo Gender: M Fellow: Height: 190.50 cm Nurse: Cosmo Brower RN Weight: 157.40 kg Draw Machine Operator: MICHAEL BSA: 2.77 m2 Technologist: BMI: 43.37 kg/m2 Additional Staff: Age: 42 years cc report to: Patient Location: cc report to: [id number] Neisha Noyola DO Study Type: Cardiac Stress Test Diagnosis/ICD: I25.10-Atheroscleroti c heart disease Indication: Clearance Occupational Procedure/CPT: Stress Test Interpretation-03290; Stress Test Supervision-[id number] Falls Risk: Low: Patient has low risk [...] The adequate level of stress was achieved. [id number] Jenny Flores MD, [facility] Electronically signed on 09/19/2022 at 5:38:46 PM Final Normal [facility] XR wrist LT 2Von 05-24-2022 XR wrist LT 2V [facility] [place] [address] XRay Report Signed Patient: Massimo Santoyo MR#: [id number] 232 : 1980 Acct:[id number] Age/Sex: 41 / M ADM Date: 05/24/22 Loc: [facility] Room: Type: [facility] Attending Dr: Camryn Baker MD Copies [...] HARDWARE COMPLICATION. Impression dictated by: Gilberto Escoto Jr. DDandyODandy05/24/2022 4:49 PM Dictation Location: [facility]IO-PC-08 Transcribed By: ANN-MARIE 05/24/221648 Dictated By: Gilberto Escoto Jr, 05/24/221647 Signed By: 05/24/221648 Normal [facility] XR wrist LT 2V [facility] [employer] Other XR wrist LT 2V [facility] [employer] Other XR wrist LT [address]V [address] [place] [address] [employer] Other XR [place] 2[place] [address] No [facility] [employer] Other XR wrist LT 2V XRay Report [employer] Other XR wrist LT 2V Signed [employer] Other XR wrist LT 2V Patient: Massimo Santoyo MR#: [id number] [employer] Other XR wrist LT 2V 232 [employer] Other XR wrist LT 2V : 1980 Acct:[id number] [employer] Other XR wrist LT 2V Age/Sex: 41 / M ADM Date: 05/24/22 [employer] Other XR wrist LT 2V Loc: [facility] Room: Type : [facility] [employer] Other XR wrist LT 2V Attending Dr: Mindy Baker MD [employer] Other XR wrist LT 2V Copies to: Camryn Baker MD [employer] Other XR wrist LT 2V Ordering Provider: Camryn Baker MD [employer] Other XR wrist LT 2V Date of Service: 05/24/22 [employer] Other XR wrist LT 2V XR/XR wrist LT 2V: Closed displaced segmental fracture of shaft of left [employer] Other XR wrist LT 2V radius, [employer] Other XR wrist LT 2V LEFT WRIST - 2 views [employer] Other XR wrist LT 2V CLINICAL HISTORY: Follow-up distal radius fracture [employer] Other XR wrist LT 2V COMPARISON: Left wrist 04/12/2022 [employer] Other XR wrist LT 2V FINDINGS: [employer] Other XR wrist LT 2V Hardware fixation of a distal radius grossly unchanged in alignment compared to the prior study. [employer] Other XR wrist LT 2V Fracture lines are less conspicuous suggestive of healing. Styloid process fracture of the ulna is [employer] Other XR wrist LT 2V unchanged. [employer] Other XR wrist LT 2V XR/XR wrist LT 2V [employer] Other XR wrist LT 2V IMPRESSION: [employer] Other XR wrist LT 2V HEALING INTERNALLY FIXATED DISTAL RADIUS FRACTURE WITHOUT EVIDENCE OF HARDWARE COMPLICATION. [employer] Other XR wrist LT 2V Impression dictated by: Alex Gray Jr.ODandy05/24/2022 4:49 PM [employer] Other XR wrist LT 2V Dictation Location: [place] [address] [employer] Other XR wrist LT 2V Transcribed By: PWS 05/24/22 [facility] [employer] Other XR wrist LT 2V Dictated By: Gilberto Escoto Jr DO 05/24/22 [facility] [employer] Other XR wrist LT 2V Signed By: [employer] Other XR wrist LT 2V 05/24/22 [facility] Brain [employer] Other Amphetamine Screen Ql (U)Ord ered By: Negro Negrete on 05-10-2022 Amphetamines Ql (U) Negative Negative [facility] Barbiturates [Presence] in U rineOrdered By: Negro Negrete on 05-10-2022 Barbiturates Ql (U) Negative Negative [facility] Benzodiazepines [Presence] i n UrineOrdered By: Negro Negrete on 05-10-2022 Benzodiazepines Ql (U) Negative Negative [facility] Cannabinoids [Presence] in U rine by Screen methodOrdered By: Negro Negrete on 05-10-2022 Cannabinoids Screen Ql (U) Positive Negative [facility] Comment on above: These are unconfirme d results and should not be used for legal purposes. Drug Cut-Off Concentration: AMPH 1000 ng/mL TRI 200 ng/mL ASHISH 200 ng/mL COCM 300 ng/mL OP 300 ng/mL PCP 25 ng/mL THC 20 ng/mL Drug Screen,Urineon 05-10-20 22 Amphetamine Screen,Urine Negative Normal Negative [facility] Comment on above: Performed By: #### U RDS ####[address] Barbiturate Screen,Urine Negative Normal Negative [facility] Comment on above: Performed By: #### U RDS ####[address] Benzodiazepines Screen,Urine Negative Normal Negative [facility] Comment on above: Performed By: #### U RDS ####[address] Cannabinoid Screen,Urine Positive High Negative [facility] Comment on above: Result Comment: Thes e are unconfirmed results and should not be used for legal purposes. Drug Cut-Off Concentration: AMPH 1000 ng/mL TRI 200 ng/mL ASHISH 200 ng/mL COCM 300 ng/mL OP 300 ng/mL PCP 25 ng/mL THC 20 ng/mL PERFORMED BY: [address] [place] [address] ASSOCIATE JUSTICE SORAYA ESPINOZA M.D. Performed By: #### U RDS ####[facility] [id number] [place] [address] [facility] Cocaine Screen,Urine Negative Normal Negative [facility] Comment on above: Performed By: #### U RDS ####[facility] [id number] [place] [address] [facility] Opiate Screen,Urine Negative Normal Negative [facility] Comment on above: Performed By: #### U RDS ####[facility] [address] [place] [address] [facility] Phencyclidine Screen,Urine Negative Normal Negative [facility] Comment on above: Performed By: #### U RDS ####[facility] [id number] [place] [address] [facility] Laboratory - Drug toxicology Ordered By: Negro Negrete on 05-10-2022 Opiates Ql (U) Negative Negative [facility] Phencyclidine Screen Ql (U)O rdered By: Negro Negrete on 05-10-2022 Phencyclidine Ql (U) Negative Negative [facility] Urine cocaine detectionOrder ed By: Negro Negrete on 05-10-2022 Cocaine Ql (U) Negative Negative [facility] COVID-19 FRMCon 05-08-2022 SARS-CoV-2 (COVID-19) RNA CHELSEA+probe Ql (Unsp spec) Negative Normal Negative [facility] Comment on above: Order Comment: Healt hcare Worker?: N Result Comment: Testing for SARS-CoV-2 by RT-PCR This test was developed and its performance characteristics determined by [employer] ([employer]) and validated at the [facility]. This test has not been [...] is terminated or revoked sooner. PERFORMED BY: [place] [address] ASSOCIATE JUSTICE SORAYA ESPINOZA M.D. Performed By: #### C OVID 19 [facility] ####[facility] [address] [place] [id number] [facility] COVID-19 Positive/NegativeOr dered By: Negro Negrete on 05-08-2022 SARS-CoV-2 (COVID-19) N gene CHELSEA+probe Ql (Resp) Negative Negative [facility] Comment on above: Testing for SARS-CoV -2 by RT-PCRThis test was developed and its performance characteristics determined by [employer] and validated at the [facility]. This test has not been [...] LT 2Von 04-12-2022 XR wrist LT 2V [facility] [place] [address] [place], [place] [id number] XRay Report Signed Patient: Massimo Santoyo MR#: [id number] 232 : 1980 Acct:[id number] Age/Sex: 41 / M ADM Date: 04/12/22 Loc: [facility] Room: Type: [facility] Attending Dr: Camryn Baker MD Copies [...] Mazin Boo M.D.04/12/2022 4:40 PM Dictation Location: [place] [address] Transcribed By: [facility] 04/12/22 1640 Dictated By: Mazin Boo II, MD 04/12/22 1638 Signed By: 04/12/22 1640 [facility] XR wrist LT 2V [facility] [employer] Other XR wrist LT 2V [facility] [employer] Other XR wrist LT 2V [address] [place] [address] [employer] Other XR wrist LT 2[place] [address] [facility] [employer] Other XR wrist LT 2V XRay Report [employer] Other XR wrist LT 2V Signed [employer] Other XR wrist LT 2V Patient: Massimo Santoyo MR#: [id number] [employer] Other XR wrist LT 2V 232 [employer] Other XR wrist LT 2V : 1980 Acct:[id number] [employer] Other XR wrist LT 2V Age/Sex: 41 / M ADM Date: 04/12/22 [employer] Other XR wrist LT 2V Loc: [facility] Room: Type : [facility] [employer] Other XR wrist LT 2V Attending Dr: Mindy Baker MD [employer] Other XR wrist LT 2V Copies to: Camryn Baker MD [employer] Other XR wrist LT 2V Ordering Provider: Camryn Baker MD [employer] Other XR wrist LT 2V Date of Service: 04/12/22 [employer] Other XR wrist LT 2V XR/XR wrist LT 2V: Closed displaced segmental fracture of shaft of left [employer] Other XR wrist LT 2V radius, [employer] Other XR wrist LT 2V XR wrist LT 2V 04/12/2022 3:11 PM [employer] Other XR wrist LT 2V SIGNS AND SYMPTOMS: Follow-up, [employer] Other XR wrist LT 2V Closed displaced segmental fracture of shaft of left radius, [employer] Other XR wrist LT 2V PROTOCOL: Frontal an d lateral radiograph of the left wrist [employer] Other XR wrist LT 2V COMPARISON: 03/15/2022 [employer] Other XR wrist LT 2V FINDINGS: [employer] Other XR wrist LT 2V There is hardware fixation along the volar aspect of the distal radius with a comminuted radius [employer] Other XR wrist LT 2V fracture similar to the prior exam. There is evidence of slight interval healing without change in [employer] Other XR wrist LT 2V alignment. There is an ulnar styloid fracture which is not identified. [employer] Other XR wrist LT 2V XR/XR wrist LT 2V [employer] Other XR wrist LT 2V IMPRESSION: [employer] Other XR wrist LT 2V Hardware fixation of a comminuted fracture of the distal radius without hardware complication. No [employer] Other XR wrist LT 2V change in alignment. [employer] Other XR wrist LT 2V Impression dictated by: Mazin Boo M.D.04/12/2022 4:40 PM [employer] Other XR wrist LT 2V Dictation Location: [place] [address] [employer] Other XR wrist LT 2V Transcribed By: ANN-MARIE 04/12/22 [facility] [employer] Other XR wrist LT 2V Dictated By: Mazin Boo II, MD 04/12/22 1638 [employer] Other XR wrist LT 2V Signed By: [employer] Other XR wrist LT 2V 04/12/22 [employer] Other XR wrist LT 2Von 03-15-2022 XR wrist LT 2V [facility] [place] [address] [place] [address] XRay Report Signed Patient: Massimo Santoyo MR#: [id number] 232 : 1980 Acct:[id number] Age/Sex: 41 / M ADM Date: 03/15/22 Loc: [facility] Room: Type: [facility] CLI Attending Dr: Camryn Baker MD Copies to: [...] Luisa Espinoza M.D.03/15/2022 3:57 PM Dictation Location: [facility] Transcribed By: [facility] 03/15/22 155 Dictated By: Luisa Espinoza MD 03/15/22 1556 Signed By: 03/15/22 1557 [facility] XR wrist LT 2V [facility] [employer] Other XR wrist LT 2V [facility] [employer] Other XR wrist LT 2V [address] [place] [address] [employer] Other [place]R wrist [place] 2[place] [address] No rt [employer] Other XR wrist LT 2V XRay Report [employer] Other XR wrist LT 2V Signed [employer] Other XR wrist LT 2V Patient: Massimo Santoyo MR#: [id number] [employer] Other XR wrist LT 2V 232 [employer] Other XR wrist LT 2V : 1980 Acct:[id number] [employer] Other XR wrist LT 2V Age/Sex: 41 / M ADM Date: 03/15/22 [employer] Other XR wrist LT 2V Loc: [facility] Room: Type : [facility] [employer] Other XR wrist LT 2V Attending Dr: Mindy Baker MD [employer] Other XR wrist LT 2V Copies to: Camryn Baker MD [employer] Other XR wrist LT 2V Ordering Provider: Camryn Baker MD [employer] Other XR wrist LT 2V Date of Service: 03/15/22 [employer] Other XR wrist LT 2V XR/XR wrist LT 2V: Closed displaced segmental fracture of shaft of left [employer] Other XR wrist LT 2V radius, [employer] Other XR wrist LT 2V LEFT WRIST - 2 views [employer] Other XR wrist LT 2V COMPARISON: 02/22/2022 [employer] Other XR wrist LT 2V CLINICAL DATA: Follow-up wrist fractures [employer] Other XR wrist LT 2V AP and lateral views were obtained. There is redemonstration of comminuted fractures involving the [employer] Other XR wrist LT 2V distal radial shaft down to the articular surface at the distal radius. There is a volar plate and [employer] Other XR wrist LT 2V multiple screws jeremiah g the radius. Findings are similar to the prior. A mildly distracted ulnar [employer] Other XR wrist LT 2V styloid fracture is also again noted. There is radiocarpal joint space narrowing. No dislocation is [employer] Other XR wrist LT 2V seen. There is continued soft tissue swelling. [employer] Other XR wrist LT 2V XR/XR wrist LT 2V [employer] Other XR wrist LT 2V IMPRESSION: [employer] Other XR wrist LT 2V STABLE WRIST FRACTURES. [employer] Other XR wrist LT 2V Impression dictated by: Luisa Espinoza M.D.03/15/2022 3:57 PM [employer] Other XR wrist LT 2V Dictation Location: [place] [address] [employer] Other XR wrist LT 2V Transcribed By: ANN-MARIE 03/15/22 [facility] [employer] Other XR wrist LT 2V Dictated By: Luisa Espinoza MD 03/15/22 [facility] [employer] Other XR wrist LT 2V Signed By: [employer] Other XR wrist LT 2V 03/15/22 [facility] Brain [employer] Other XR wrist LT 2Von 02-22-2022 XR wrist LT 2V [facility] [place] [address] [place] [address] XRay Report Signed Patient: Massimo Santoyo MR#: [id number] 232 : 1980 Acct:[id number] Age/Sex: 41 / M ADM Date: 02/22/22 Loc: [facility] Room: Type: [facility] Attending Dr: Camryn Baker MD Copies [...] Mazin Boo M.D.02/22/2022 4:27 PM Dictation Location: [place] [address] Transcribed By: [facility] 02/22/221626 Dictated By: Mazin Boo II, MD 02/22/221625 Signed By: 02/22/221626 [facility] XR wrist LT 2V [facility] [employer] Other XR wrist LT 2V [facility] [employer] Other XR wrist LT 2V [address] [place] [address] [employer] Other [place]R [place] 2[place] [address] No rt [employer] Other XR wrist LT 2V XRay Report [employer] Other XR wrist LT 2V Signed [employer] Other XR wrist LT 2V Patient: Massimo Santoyo MR#: [id number] [employer] Other XR wrist LT 2V 232 [employer] Other XR wrist LT 2V : 1980 Acct:[id number] [employer] Other XR wrist LT 2V Age/Sex: 41 / M ADM Date: 02/22/22 [employer] Other XR wrist LT 2V Loc: [facility] Room: Type : [facility] [employer] Other XR wrist LT 2V Attending Dr: Mindy Baker MD [employer] Other XR wrist LT 2V Copies to: Camryn Baker MD [employer] Other XR wrist LT 2V Ordering Provider: Camryn Baker MD [employer] Other XR wrist LT 2V Date of Service: 02/22/22 [employer] Other XR wrist LT 2V XR/XR wrist LT 2V: Closed displaced segmental fracture of shaft of left [employer] Other XR wrist LT 2V radius, [employer] Other XR wrist LT 2V XR wrist LT 2V 02/22/2022 9:58 AM [employer] Other XR wrist LT 2V SIGNS AND SYMPTOMS: Left distal radius fracture, follow-up [employer] Other XR wrist LT 2V PROTOCOL: Frontal an d lateral radiographs of the left wrist [employer] Other XR wrist LT 2V COMPARISON: 01/31/2022 [employer] Other XR wrist LT 2V FINDINGS: [employer] Other XR wrist LT 2V There is plate and screw fixation of the distal radius similar to the prior exam without hardware [employer] Other XR wrist LT 2V fracture lines of th e radiocarpal joint space. There is a nondisplaced ulnar styloid fracture which [employer] Other XR wrist LT 2V is unchanged. There is diffuse soft tissue swelling. [employer] Other XR wrist LT 2V XR/XR wrist LT 2V [employer] Other XR wrist LT 2V IMPRESSION: [employer] Other XR wrist LT 2V Status post fixation of the comminuted distal radius fracture without hardware complication, [employer] Other XR wrist LT 2V malalignment, or significant interval healing. [employer] Other XR wrist LT 2V There is an unchange d mildly displaced fracture of the ulnar styloid. [employer] Other XR wrist LT 2V Impression dictated by: Mazin Boo M.D.02/22/2022 4:27 PM [employer] Other XR wrist LT 2V Dictation Location: [place] [address] [employer] Other XR wrist LT 2V Transcribed By: ANN-MARIE 02/22/22 [facility] [employer] Other XR wrist LT 2V Dictated By: Mazin Boo II, MD 02/22/22 [facility] [employer] Other XR wrist LT 2V Signed By: [employer] Other XR wrist LT 2V 02/22/22 [facility] [employer] Other Amphetamine Screen Ql (U)Ord ered By: Alexys German on 01-31-2022 Amphetamines Ql (U) Negative Negative [facility] Barbiturates [Presence] in U rineOrdered By: Alexys German on 01-31-2022 Barbiturates Ql (U) Negative Negative [facility] Benzodiazepines [Presence] i n UrineOrdered By: Alexys German on 01-31-2022 Benzodiazepines Ql (U) Negative Negative [facility] Cannabinoids [Presence] in U rine by Screen methodOrdered By: Alexys German on 01-31-2022 Cannabinoids Screen Ql (U) Positive Negative [facility] Comment on above: These are unconfirme d results and should not be used for legal purposes. Drug Cut-Off Concentration: AMPH 1000 ng/mL TRI 200 ng/mL ASHISH 200 ng/mL COCM 300 ng/mL OP 300 ng/mL PCP 25 ng/mL THC 20 ng/mL Drug Screen,Urineon 02-01-20 Amphetamine Screen,Urine Negative Normal Negative [facility] Comment on above: Performed By: #### U RDS #### [address] Barbiturate Screen,Urine Negative Normal Negative [facility] Comment on above: Performed By: #### U RDS #### [place] [address] [place] Benzodiazepines Screen,Urine Negative Normal Negative [facility] Comment on above: Performed By: #### U RDS #### [address] Cannabinoid Screen,Urine Positive High Negative [facility] Comment on above: Result Comment: Thes e are unconfirmed results and should not be used for legal purposes. Drug Cut-Off Concentration: AMPH 1000 ng/mL TRI 200 ng/mL ASHISH 200 ng/mL COCM 300 ng/mL OP 300 ng/mL PCP 25 ng/mL THC 20 ng/mL PERFORMED BY: [place] [address] ASSOCIATE JUSTICE SORAYA ESPINOZA M.D. Performed By: #### U RDS #### [address] Cocaine Screen,Urine Negative Normal Negative [facility] Comment on above: Performed By: #### U RDS #### [place] [address] [place] Opiate Screen,Urine Negative Normal Negative [facility] Comment on above: Performed By: #### U RDS #### [place] [address] [place] Phencyclidine Screen,Urine Negative Normal Negative [facility] Comment on above: Performed By: #### U RDS #### [address] Laboratory - Drug toxicology Ordered By: Alexys German on 01-31-2022 Opiates Ql (U) Negative Negative [facility] Phencyclidine Screen Ql (U)O rdered By: Alexys German on 01-31-2022 Phencyclidine Ql (U) Negative Negative [facility] Urine cocaine detectionOrder ed By: Alexys German on 01-31-2022 Cocaine Ql (U) Negative Negative [facility] XR wrist LT min 3V*on 2021 XR wrist LT min 3V* [facility] [place] [address] [place] [address] XRay Report Signed Patient: Massimo Santoyo MR#: [id number] 232 : 1980 Acct:[id number] Age/Sex: 41 / M ADM Date: 01/31/22 Loc: [place] Room: Type: [facility] Attending Dr: Camryn Baker MD Copies to: Camryn Baker MD Ordering Provider: Camryn Baker MD Date of Service: 01/31/22 XR/XR forearm LT 2V*: s/p ORIF ([id number]) XR/XR wrist LT min 3V*: s/p ORIF [...] Wallace Jr., M.D.01/31/2022 6:42 PM Dictation Location: [place] [address] Transcribed By: [facility] 01/31/221841 Dictated By: Joshua Wallace Jr, MD 01/31/22 183 Signed By: 01/31/22 184 Normal [facility] XR wrist LT min 3V* [place] [address] XRay Report Signed Patient: Massimo Santoyo MR#: [id number] 232 : 1980 Acct:[id number] Age/Sex: 41 / M ADM Date: 01/31/22 Loc: [place] Room: Type: [facility] Attending Dr: Camryn Baker MD Copies to: [...] Wallace Jr., M.D.01/31/2022 6:37 PM Dictation Location: [place] [address] Transcribed By: [facility] 01/31/221836 Dictated By: oJshua Wallace Jr, MD 01/31/221833 Signed By: 01/31/221836 Normal [facility] SARS-CoV-2 (COVID-19) RNA CHELSEA+probe Ql (Unsp spec) Negative Normal Negative [facility] Comment on above: Order Comment: Healt hcare Worker?: N Result Comment: Testing for SARS-CoV-2 by RT-PCR This test was developed and its performance characteristics determined by [employer] ([employer]) and validated at the [facility]. This test has not been [...] is terminated or revoked sooner. PERFORMED BY: [facility] [address] [place] [address] ASSOCIATE JUSTICE SORAYA ESPINOZA M.D. Performed By: #### C OVID 19 [facility] ####[facility] [place] [address] [facility] COVID-19 Positive/NegativeOr dered By: Camryn Baker on 01-27-2022 SARS-CoV-2 (COVID-19) N gene CHELSEA+probe Ql (Resp) Negative Negative [facility] Comment on above: Testing for SARS-CoV -2 by RT-PCR This test was developed and its performance characteristics determined by [employer] ([employer]) and validated at the [facility]. This test has not been [...] on 01-26-2022 Amphetamines Ql (U) Negative Negative [facility] Barbiturates [Presence] in U rineOrdered By: Chele Hanks on 01-26-2022 Barbiturates Ql (U) Negative Negative [facility] Benzodiazepines [Presence] i n UrineOrdered By: Chele Hanks on 01-26-2022 Benzodiazepines Ql (U) Negative Negative [facility] Cannabinoids [Presence] in U rine by Screen methodOrdered By: Chele Hanks on 01-26-2022 Cannabinoids Screen Ql (U) Positive Negative [facility] Comment on above: These are unconfirme d results and should not be used for legal purposes. Drug Cut-Off Concentration: AMPH 1000 ng/mL TRI 200 ng/mL ASHISH 200 ng/mL COCM 300 ng/mL OP 300 ng/mL PCP 25 ng/mL THC 20 ng/mL Drug Screen,Urineon 01-27-20 22 Amphetamine Screen,Urine Negative Normal Negative [facility] Comment on above: Order Comment: Comme nt IF PATIENT HAS USED MARIJUANA IN LAST 3 DAYS Performed By: #### U RDS #### [facility] [address] Barbiturate Screen,Urine Negative Normal Negative [facility] Comment on above: Order Comment: Comme nt IF PATIENT HAS USED MARIJUANA IN LAST 3 DAYS Performed By: #### U RDS #### [facility] [address] [place] [address] [place] Benzodiazepines Screen,Urine Negative Normal Negative [facility] Comment on above: Order Comment: Comme nt IF PATIENT HAS USED MARIJUANA IN LAST 3 DAYS Performed By: #### U RDS #### [address] Cannabinoid Screen,Urine Positive High Negative [facility] Comment on above: Order Comment: Comme nt IF PATIENT HAS USED MARIJUANA IN LAST 3 DAYS Result Comment: Thes e are unconfirmed results and should not be used for legal purposes. Drug Cut-Off Concentration: AMPH 1000 ng/mL TRI 200 ng/mL ASHISH 200 ng/mL COCM 300 ng/mL OP 300 ng/mL PCP 25 ng/mL THC 20 ng/mL PERFORMED BY: [place] [address] ASSOCIATE JUSTICE SORAYA ESPINOZA M.D. Performed By: #### U RDS #### [place] [address] [place] Cocaine Screen,Urine Positive High Negative [facility] Comment on above: Order Comment: Comme nt IF PATIENT HAS USED MARIJUANA IN LAST 3 DAYS Performed By: #### U RDS #### [place] [address] [place] Opiate Screen,Urine Negative Normal Negative [facility] Comment on above: Order Comment: Comme nt IF PATIENT HAS USED MARIJUANA IN LAST 3 DAYS Performed By: #### U RDS #### [facility] [address] [place] [address] [place] Phencyclidine Screen,Urine Negative Normal Negative [facility] Comment on above: Order Comment: Comme nt IF PATIENT HAS USED MARIJUANA IN LAST 3 DAYS Performed By: #### U RDS #### [facility] [address] [place] [id number] [facility] Laboratory - Drug toxicology Ordered By: Chele Hanks on 01-26-2022 Opiates Ql (U) Negative Negative [facility] Phencyclidine Screen Ql (U)O rdered By: Chele Hanks on 01-26-2022 Phencyclidine Ql (U) Negative Negative [facility] Urine cocaine detectionOrder ed By: Chele Hanks on 01-26-2022 Cocaine Ql (U) Positive Negative [facility] Basophils Auto (Bld) [#/Vol] Ordered By: Camryn Baker on 01-24-2022 Basophils (Bld) [#/Vol] 0.1 10*3/uL 0.0-0.2 [facility] Basophils/100 WBC Auto (Bld) Ordered By: Camryn Baker on 01-24-2022 Basophils/100 WBC (Bld) 0.7 % . [facility] Blood hemoglobin measurement (mass/volume)Ordered By: Camryn Baker on 01-24-2022 Hemoglobin (Bld) [Mass/Vol] 15.1 g/dL 13.0-17.0 [facility] Blood leukocytes automated c ount (number/volume)Ordered By: Camryn Baker on 01-24-2022 WBC (Bld) [#/Vol] 9.4 10*3/uL 4.5-11.0 [facility] Body fluid albumin measureme nt (mass/volume)Ordered By: Camryn Baker on 01-24-2022 Albumin (Body fld) [Mass/Vol] 3.9 g/dL 3.2-5.5 [facility] COVID-19 [facility] 01-24-2022 SARS-CoV-2 (COVID-19) RNA CHELSEA+probe Ql (Unsp spec) Negative Normal Negative [facility] Comment on above: Order Comment: Healt hcare Worker?: N Result Comment: Testing for SARS-CoV-2 by RT-PCR This test was developed and its performance characteristics determined by [employer] ([employer]) and validated at the [facility]. This test has not been [...] is terminated or revoked sooner. PERFORMED BY: [place] [address] ASSOCIATE JUSTICE SORAYA ESPINOZA M.D. Performed By: #### C OVID 19 [facility] #### [address] COVID-19 Positive/NegativeOr dered By: Camryn Baker on 01-24-2022 SARS-CoV-2 (COVID-19) N gene CHELSEA+probe Ql (Resp) Negative Negative [facility] Comment on above: Testing for SARS-CoV -2 by RT-PCR This test was developed and its performance characteristics determined by [employer] ([employer]) and validated at the [facility]. This test has not been [...] Basophils (Bld) [#/Vol] 0.1 10*3/uL Normal 0.0-0.2 [facility] Comment on above: Result Comment: PERF ORMED BY: [place] [address] ASSOCIATE JUSTICE SORAYA ESPINOZA M.D. Performed By: #### C MP, CBC #### [address] Basophils/100 WBC (Bld) 0.7 % Normal . [facility] Comment on above: Performed By: #### C MP, CBC #### [address] Eosinophils (Bld) [#/Vol] 0.2 10*3/uL Normal 0.0-0.45 [facility] Comment on above: Performed By: #### C MP, CBC #### [place] [address] [place] Eosinophils/100 WBC (Bld) 2.1 % Normal . [facility] Comment on above: Performed By: #### C MP, CBC #### [address] Erythrocyte distribution width (RBC) [Ratio] 15.2 % High 12.0-14.8 [facility] Comment on above: Performed By: #### C MP, CBC #### [address] Hematocrit (Bld) [Volume fraction] 43.1 % Normal 38.8-50.0 [facility] Comment on above: Performed By: #### C MP, CBC #### [address] Hemoglobin (Bld) [Mass/Vol] 15.1 g/dL Normal 13.0-17.0 [facility] Comment on above: Performed By: #### C MP, CBC #### [facility] [address] [place] [address] [place] Lymphocytes (Bld) [#/Vol] 1.9 10*3/uL Normal 1.00-4.8 [facility] Comment on above: Performed By: #### C MP, CBC #### [facility] [address] Lymphocytes/100 WBC (Bld) 20.2 % Normal . [facility] Comment on above: Performed By: #### C MP, CBC #### [facility] [address] MCH (RBC) [Entitic mass] 29.8 pg Normal 27.5-35.2 [facility] Comment on above: Performed By: #### C MP, CBC #### [address] MCV (RBC) [Entitic vol] 85.1 fL Normal 83.5-101 [facility] Comment on above: Performed By: #### C MP, CBC #### [address] Mean Corpuscular HGB Conc 35.0 g/dL Normal 32.5-35.6 [facility] Comment on above: Performed By: #### C MP, CBC #### [place] [address] [place] Monocytes (Bld) [#/Vol] 0.8 10*3/uL Normal 0.0-0.8 [facility] Comment on above: Performed By: #### C MP, CBC #### [place] [address] [place] Monocytes/100 WBC (Bld) 8.1 % Normal . [facility] Comment on above: Performed By: #### C MP, CBC #### [place] [address] [place] Neutrophils (Bld) [#/Vol] 6.5 10*3/uL Normal 1.8-7.7 [facility] Comment on above: Performed By: #### C MP, CBC #### [facility] [address] Neutrophils/100 WBC (Bld) 68.9 % Normal . [facility] Comment on above: Performed By: #### C MP, CBC #### [facility] [address] [place] [address] [place] Nucleated RBC/100 WBC (Bld) [Ratio] 0.1 % Normal 0-0.5 [facility] Comment on above: Performed By: #### C MP, CBC #### [facility] [address] Platelet mean volume (Bld) [Entitic vol] 7.4 fL Normal 6.6-10.1 [facility] Comment on above: Performed By: #### C MP, CBC #### [facility] [address] Platelets (Bld) [#/Vol] 388 10*3/uL Normal 150-450 [facility] Comment on above: Performed By: #### C MP, CBC #### [place] [address] [place] RBC (Bld) [#/Vol] 5.07 10*6/uL Normal 3.90-5.60 [facility] Comment on above: Performed By: #### C MP, CBC #### [place] [id number] [place] WBC (Bld) [#/Vol] 9.4 10*3/uL Normal 4.5-11.0 [facility] Comment on above: Performed By: #### C MP, CBC #### [address] Comprehensive Metabolic Pane danny 01-24-2022 Albumin [Mass/Vol] 3.9 g/dL Normal 3.2-5.5 [facility] Comment on above: Performed By: #### C MP, CBC #### [place] [id number] [facility] Albumin/Globulin [Mass ratio] 1.2 {ratio} Normal [facility] Comment on above: Performed By: #### C MP, CBC #### [facility] [address] [place] [address] ALP [Catalytic activity/Vol] 43 U/L Normal 32-92 [facility] Comment on above: Result Comment: PERF ORMED BY: [place] [address] ASSOCIATE JUSTICE SORAYA ESPINOZA M.D. Performed By: #### C MP, CBC #### [address] ALT [Catalytic activity/Vol] 33 U/L Normal 10-60 [facility] Comment on above: Performed By: #### C MP, CBC #### [address] AST [Catalytic activity/Vol] 29 U/L Normal 10-42 [facility] Comment on above: Performed By: #### C MP, CBC #### [address] Bilirubin [Mass/Vol] 0.8 mg/dL Normal 0.3-1.2 [facility] Comment on above: Performed By: #### C MP, CBC #### [address] Calcium [Mass/Vol] 10.0 mg/dL Normal 8.2-10.2 [facility] Comment on above: Performed By: #### C MP, CBC #### [facility] [address] [place] [address] [place] Chloride [Moles/Vol] 95 mmol/L Normal 95-114 [facility] Comment on above: Performed By: #### C MP, CBC #### [facility] [address] [place] [address] [place] CO2 [Moles/Vol] 26.0 mmol/L Normal 22.0-30.0 [facility] Comment on above: Performed By: #### C MP, CBC #### [place] [address] [place] Creatinine [Mass/Vol] 0.86 mg/dL Normal 0.64-1.27 [facility] Comment on above: Performed By: #### C MP, CBC #### [place] [address] [place] Estimated GFR ( Yolette > 60 Normal [facility] Comment on above: Result Comment: GFR estimated reference range: According to KDOQI guidelines, <60 ml/min/1.73m2 is sufficient to diagnose a patient with chronic kidney disease. Performed By: #### C MP, CBC #### [address] Estimated GFR (Non- Am > 60 Normal [facility] Comment on above: Performed By: #### C MP, CBC #### [address] Globulin (S) [Mass/Vol] 3.2 g/dL Normal [facility] Comment on above: Performed By: #### C MP, CBC #### [address] Glucose [Mass/Vol] 98 mg/dL Normal 70-100 [facility] Comment on above: Result Comment: [facility] Glucose Reference Range is dependent on time and content of last meal. Glucose of more than 200 mg/dL in a nonstressed, ambulatory subject supports the diagnosis of Diabetes Mellitus. ADA recommended reference range Performed By: #### C MP, CBC #### [place] [address] [place] Potassium [Moles/Vol] 4.4 mmol/L Normal 3.5-5.1 [facility] Comment on above: Performed By: #### C MP, CBC #### [place] [address] [place] Protein [Mass/Vol] 7.1 g/dL Normal 6.1-7.9 [facility] Comment on above: Performed By: #### C MP, CBC #### [address] Sodium [Moles/Vol] 136 mmol/L Normal 136-146 [facility] Comment on above: Performed By: #### C MP, CBC #### [facility] [address] [place] [address] [place] Urea nitrogen [Mass/Vol] 10 mg/dL Normal 05-05 [facility] Comment on above: Performed By: #### C MP, CBC #### [facility] [address] [place] [address] [place] Creatinine and Glomerular fi ltration rate.predicted panel (S/P/Bld)Ordered By: Camryn Baker on 01-24-2022 Creatinine [Mass/Vol] 0.86 mg/dL 0.64-1.27 [facility] ECG 12 lead ECGon 01-24-2022 ECG 12 lead ECG [facility] [place] [address] [place] [address] Electrocardiograph Report Signed Patient: Massimo Santoyo MR#: [id number] 232 : 1980 Acct:[id number] Age/Sex: 41 / M ADM Date: 01/24/22 Loc: Room: Type: [facility] Attending Dr: Camryn Baker MD Ordering Provider: [...] MD Transcribed By: MUS Signed By Zach aGytan MD 0 01/24/222010 [facility] Eosinophils Auto (Bld) [#/Vo l]Ordered By: Camryn Baker on 01-24-2022 Eosinophils (Bld) [#/Vol] 0.2 10*3/uL 0.0-0.45 [facility] Eosinophils/100 WBC Auto (Bl d)Ordered By: Camryn Baker on 01-24-2022 Eosinophils/100 WBC (Bld) 2.1 % . [facility] Erythrocyte distribution wid th Auto (RBC) [Ratio]Ordered By: Camryn Baker on 01-24-2022 Erythrocyte distribution width (RBC) [Ratio] 15.2 % 12.0-14.8 [facility] Estimated glomerular filtrat ion rate (GFR) non- AmericanOrdered By: Camryn Baker on 01-24-2022 GFR/1.73 sq M.predicted among non-blacks MDRD (S/P/Bld) [Vol rate/Area] > 60 mL/Min [facility] Globulin Calc (S) [Mass/Vol] Ordered By: Camryn Baker on 01-24-2022 Globulin (S) [Mass/Vol] 3.2 g/dL [facility] Hematocrit Auto (Bld) [Volum e fraction]Ordered By: Camryn Baker on 01-24-2022 Hematocrit (Bld) [Volume fraction] 43.1 % 38.8-50.0 [facility] Laboratory - Hematology and Cell countsOrdered By: Camryn Baker on 01-24-2022 Nucleated RBC/100 WBC (Bld) [Ratio] 0.1 % 0-0.5 [facility] Lymphocytes Auto (Bld) [#/Vo l]Ordered By: Camryn Baker on 01-24-2022 Lymphocytes (Bld) [#/Vol] 1.9 10*3/uL 1.00-4.8 [facility] Lymphocytes/100 WBC Auto (Bl d)Ordered By: Camryn Baker on 01-24-2022 Lymphocytes/100 WBC (Bld) 20.2 % . [facility] MCH Auto (RBC) [Entitic mass ]Ordered By: Camryn Baker on 01-24-2022 MCH (RBC) [Entitic mass] 29.8 pg 27.5-35.2 [facility] MCHC Auto (RBC) [Mass/Vol]Or dered By: Camryn Baker on 01-24-2022 MCHC (RBC) [Mass/Vol] 35.0 g/dL 32.5-35.6 [facility] MCV Auto (RBC) [Entitic vol] Ordered By: Camryn Baker on 01-24-2022 MCV (RBC) [Entitic vol] 85.1 fL 83.5-101 [facility] Monocytes Auto (Bld) [#/Vol] Ordered By: Camryn Baker on 01-24-2022 Monocytes (Bld) [#/Vol] 0.8 10*3/uL 0.0-0.8 [facility] Monocytes/100 WBC Auto (Bld) Ordered By: Camryn Baker on 01-24-2022 Monocytes/100 WBC (Bld) 8.1 % . [facility] Neutrophils Auto (Bld) [#/Vo l]Ordered By: Camryn Baker on 01-24-2022 Neutrophils (Bld) [#/Vol] 6.5 10*3/uL 1.8-7.7 [facility] Neutrophils/100 WBC Auto (Bl d)Ordered By: Camryn Baker on 01-24-2022 Neutrophils/100 WBC (Bld) 68.9 % . [facility] No Panel InformationOrdered By: Camryn Baker on 01-24-2022 Estimated GFR () > 60 mL/Min [facility] Comment on above: GFR estimated refere nce range: According to KDOQI guidelines, <60 ml/min/1.73m2 is sufficient to diagnose a patient with chronic kidney disease. Pharmacy Creatinine Clearance (Chem N/A [facility] Platelet mean volume Auto (B ld) [Entitic vol]Ordered By: Camryn Baker on 01-24-2022 Platelet mean volume (Bld) [Entitic vol] 7.4 fL 6.6-10.1 [facility] Platelets Auto (Bld) [#/Vol] Ordered By: Camryn Baker on 01-24-2022 Platelets (Bld) [#/Vol] 388 10*3/uL 150-450 [facility] Protein [Mass/volume] in Ser um or PlasmaOrdered By: Camryn Baker on 01-24-2022 Protein [Mass/Vol] 7.1 g/dL 6.1-7.9 [facility] RBC Auto (Bld) [#/Vol]Ordere d By: Camryn Baker on 01-24-2022 RBC (Bld) [#/Vol] 5.07 10*6/uL 3.90-5.60 [facility] Serum or plasma alanine prather otransferase measurement without P-5'-P (enzymatic activiOrdered By: Camryn Baker on 01-24-2022 ALT No additional P-5'-P [Catalytic activity/Vol] 33 U/L 10-60 [facility] Serum or plasma albumin/glob ulin mass ratioOrdered By: Camryn Baker on 01-24-2022 Albumin/Globulin [Mass ratio] 1.2 {ratio} [facility] Serum or plasma alkaline troy sphatase measurement (enzymatic activity/volume)Ordered By: Camryn Baker on 01-24-2022 ALP [Catalytic activity/Vol] 43 U/L 32-92 [facility] Serum or plasma aspartate am inotransferase measurement (enzymatic activity/volume)Ordered By: Camryn Baker on 01-24-2022 AST [Catalytic activity/Vol] 29 U/L 10-42 [facility] Serum or plasma calcium nathaniel urement (mass/volume)Ordered By: Camryn Baker on 01-24-2022 Calcium [Mass/Vol] 10.0 mg/dL 8.2-10.2 [facility] Serum or plasma chloride chanda surement (moles/volume)Ordered By: Camryn Baker on 01-24-2022 Chloride [Moles/Vol] 95 mmol/L 95-114 [facility] Serum or plasma glucose nathaniel urement (mass/volume)Ordered By: Camryn Baker on 01-24-2022 Glucose [Mass/Vol] 98 mg/dL 70-100 [facility] Comment on above: ADA recommended refe rence range Random Glucose Reference Range is dependent on time and content of last meal. Glucose of more than 200 mg/dL in a nonstressed, ambulatory subject supports the diagnosis of Diabetes Mellitus. Serum or plasma potassium me asurement (moles/volume)Ordered By: Camryn Baker on 01-24-2022 Potassium [Moles/Vol] 4.4 mmol/L 3.5-5.1 [facility] Serum or plasma sodium measu rement (moles/volume)Ordered By: Camryn Baker on 01-24-2022 Sodium [Moles/Vol] 136 mmol/L 136-146 [facility] Serum or plasma total biliru bin measurement (mass/volume)Ordered By: Camryn Baker on 01-24-2022 Bilirubin [Mass/Vol] 0.8 mg/dL 0.3-1.2 [facility] Serum or plasma total carbon dioxide measurement (moles/volume)Ordered By: Camryn Baker on 01-24-2022 CO2 [Moles/Vol] 26.0 mmol/L 22.0-30.0 [facility] Serum or plasma urea nitroge n measurement (mass/volume)Ordered By: Camryn Baker on 01-24-2022 Urea nitrogen [Mass/Vol] 10 mg/dL 9-23 [facility] XR ELBOW LT MIN 3 [...] LUISA WEIR Date: 2022-01-19 15:28 Normal [facility] Lipid Panelon 01-18-2022 Cholesterol [Mass/Vol] 146 mg/dL Normal <200 No rthern [place] Podiatrist Assistant Comment on above: Order Comment: [facility] Testing performed at: [place], [employer] [facility], [address] [place] [address], [address] [place] [address], [address] [place] [address], [employer] Dispatcher: Vaibhav Moreno MD [facility] Collection Date/Time: [facility] Results Received Date/Time: [facility] Reported Date/Time: Performed By: #### L IPD #### [facility] Default [address] [place] [address] Cholesterol in HDL [Mass/Vol] 39 mg/dL Low > OR = 40 [facility] Assistant Comment on above: Order Comment: [facility] Testing performed at: [place], [facility], [address] [facility], [address] [place] [address], [address] [place] [address], [employer] Dispatcher: Vaibhav Moreno MD [facility] Collection Date/Time: [facility] Results Received Date/Time: [facility] Reported Date/Time: Performed By: #### L IPD #### [facility] Default [address] [place] [address] Cholesterol in LDL [Mass/Vol] 69 mg/dL Normal [facility] Assistant Comment on above: Order Comment: [facility] Testing performed at: [place], [facility], [address] [place] [address], [address] [place] [address], [address] [place] [address], [employer] Dispatcher: Vaibhav Moreno MD [facility] Collection Date/Time: [facility] Results Received Date/Time: [facility] Reported Date/Time: Result Comment: Refe rence range: <100 Desirable range <100 mg/dL for primary prevention; <70 mg/dL for patients with CHD or diabetic patients with > or = 2 CHD risk factors. LDL-C is now calculated using the Jesse calculation, which is a validated novel method providing better accuracy than the Friedewald equation in the estimation of LDL-C. Nadeem SS et al. DEVEN. 2013;310(19): 3965-8930 (http://education.Coeurative/faq/FEX596) Performed By: #### L IPD #### [facility] Default [address] [place] [address] NON HDL CHOLESTEROL 107 mg/dL (calc) Normal <130 [facility] Assistant Comment on above: Order Comment: [facility] Testing performed at: [place], [facility], [address] [facility], [address] [place] [address], [address] [place] [address], [employer] Dispatcher: Vaibhav Moreno MD [facility] Collection Date/Time: [facility] Results Received Date/Time: [facility] Reported Date/Time: Result Comment: For patients with diabetes plus 1 major ASCVD risk factor, treating to a non-HDL-C goal of <100 mg/dL (LDL-C of <70 mg/dL) is considered a therapeutic option. Performed By: #### L IPD #### [facility] Default [address] [place] [address] Triglyceride [Mass/Vol] 292 mg/dL High <150 [facility] Assistant Comment on above: Order Comment: [facility] Testing performed at: [place], [facility], [address] [place] [address], [address] [place] [address], [address] [place] [address], [employer] Dispatcher: Vaibhav Moreno MD [facility] Collection Date/Time: [facility] Results Received Date/Time: [facility] Reported Date/Time: Result Comment: If a non-fasting specimen was collected, consider repeat triglyceride testing on a fasting specimen if clinically indicated. Billy et al. J. of Clin. Lipidol. 2015;9:129-169. Performed By: #### L IPD #### [facility] Default [address] [place] [address] CT SINUSES WO CONon 01-12-20 CT SINUSES WO CON EXAMINATION: CT SINUSES [...] by: FLORENTINO CARRASQUILLO Date: 2022-01-11 08:[address] [facility] [address] SINUSES WO CONon 11-07-19 CT SINUSES WO CON EXAMINATION: CT SINUSES [...] by: FLORENTINO CARRASQUILLO Date: 2021-11-06 07:00 Normal [facility] Vital Signs Date Time Vital Sign Value Performing Clinician Facility 12-12-2022 14:29-0400 Body weight 165.11 kg Johnny Ronquillo Work Phone: [facility] DO Work Phone: 12-12-2022 14:29-0400 Diastolic blood pressure 86 mm[Hg] Rugen Rachel Nu Mine Work Phone: [facility] DO Work Phone: 12-12-2022 14:29-0400 Heart rate 80 /min Rugen Rachel Nu [place] Work Phone: [facility] DO Work Phone: 12-12-2022 14:29-0400 Systolic blood pressure 142 mm[Hg] Rugen Rachel Shima Work Phone: [facility] DO Work Phone: 05-10-2022 11:30-0400 Diastolic blood pressure 80 mm[Hg] MD Johnyn Ronquillo Work Phone: [facility] 05-10-2022 11:30-0400 Heart rate 68 /min MD Johnny Ronquillo Work Phone: [facility] 05-10-2022 11:30-0400 Respiratory rate 18 /min MD Johnny Ronquillo Work Phone: [facility] 05-10-2022 11:30-0400 SaO2% (BldA) [Mass fraction] 98 % MD Johnny Ronquillo Work Phone: [facility] 05-10-2022 11:30-0400 Systolic blood pressure 136 mm[Hg] MD Johnny Ronquillo Work Phone: [facility] 05-10-2022 09:58-0400 Body height 190.5 cm MD Johnny Ronquillo Work Phone: [facility] 05-10-2022 09:58-0400 Body weight 151.95 kg MD Johnny Ronquillo Work Phone: [facility] 02-07-2022 16:45-0400 Body height 190.5 cm Camryn Baker Other [facility] Other 02-07-2022 16:45-0400 Body mass index (BMI) [Ratio] 43.12 kg/m2 Camryn Baker Other [facility] Other 02-07-2022 16:45-0400 Body weight 156.49 kg Camryn Baker Other [facility] [employer] Other 01-31-2022 19:34-0400 Diastolic blood pressure 73 mm[Hg] MD Johnny Ronquillo Work Phone: [facility] 01-31-2022 19:34-0400 Heart rate 68 /min MD Johnny Ronquillo Work Phone: [facility] 01-31-2022 19:34-0400 Respiratory rate 20 /min MD Johnny Ronquillo Work Phone: [facility] 01-31-2022 19:34-0400 SaO2% (BldA) [Mass fraction] 93 % MD Johnny Ronquillo Work Phone: [facility] 01-31-2022 19:34-0400 Systolic blood pressure 132 mm[Hg] MD Johnny Ronquillo Work Phone: [facility] 01-31-2022 18:25-0400 Body temperature 97.5 [degF] MD Johnny Ronquillo Work Phone: [facility] 01-31-2022 18:15-0400 Inhaled oxygen flow rate 4 L/min MD Johnny Ronquillo Work Phone: [facility] 01-31-2022 13:43-0400 Body height 190.5 cm MD Johnny Ronquillo Work Phone: [facility] 01-31-2022 13:43-0400 Body mass index (BMI) [Ratio] 41.8 kg/m2 MD Johnny Ronquillo Work Phone: [facility] 01-31-2022 13:43-0400 Body weight 151.95 kg MD Johnny Ronquillo Work Phone: [facility] 01-26-2022 10:45-0400 Body height 205.74 cm MD Johnny Ronquillo Work Phone: [facility] 01-26-2022 10:45-0400 Body mass index (BMI) [Ratio] 36.6 kg/m2 MD Johnny Ronquillo Work Phone: [facility] 01-26-2022 10:45-0400 Body temperature 97.7 [degF] MD Johnny Ronquillo Work Phone: [facility] 01-26-2022 10:45-0400 Body weight 155 kg MD Johnny Ronquillo Work Phone: [facility] 01-26-2022 10:45-0400 Diastolic blood pressure 80 mm[Hg] MD Johnny Ronquillo Work Phone: [facility] 01-26-2022 10:45-0400 Heart rate 58 /min MD Johnny Ronquillo Work Phone: [facility] 01-26-2022 10:45-0400 Respiratory rate 16 /min MD Johnny Ronquilol Work Phone: [facility] 01-26-2022 10:45-0400 SaO2% (BldA) [Mass fraction] 96 % MD Johnny Ronquillo Work Phone: [facility] 01-26-2022 10:45-0400 Systolic blood pressure 135 mm[Hg] MD Johnny Ronquillo Work Phone: [facility] Encounters Encounter Date Encounter Type Care Provider Facility Start: 09-17-2023 End: 09-17-2023 ambulatory Katey Palomino Other [facility] Other Start: 09-17-2023 Telephone encounter Katey Ruelas [facility] Start: 09-14-2023 End: 09-14-2023 ambulatory Katey Palomino Other [facility] Other Start: 09-14-2023 Telephone encounter Katey Ruelas her [facility] Start: 12-12-2022 FUV, Provider: Neisha Noyola, Status: Pen, Time: 2:20 PM Johnny Ramos Shima Work Phone: [facility] DO Work Phone: Start: 12-12-2022 Office outpatient visit 25 minutes Rugen Rachel Nu [place] Work Phone: [facility] DO Work Phone: Start: 12-12-2022 ambulatory Neisha Noyola Facilit y: Start: 12-11-2022 Rx Renewal Johnny Ramos [place] Work Phone: [facility] DO Work Phone: Start: 11-01-2022 End: 11-01-2022 ambulatory Camryn Baker Facility:[facility] Start: 11-01-2022 End: 11-01-2022 ambulatory MD Johnny Ronquillo Work Phone: [facility] Work Phone: Start: 11-01-2022 End: 11-01-2022 Patient encounter procedure MD Johnny Ronquillo Work Phone: [facility] Start: 10-24-2022 End: 10-24-2022 ambulatory Camryn Baker Other [facility] Other Start: 10-24-2022 Telephone encounter Camryn Baker [facility] Start: 09-19-[address] Neisha Noyola Facility:[id number] Start: 09-14-2022 Telephone encounter Johnny Leija da Work Phone: [facility] DO Work Phone: Start: 07-13-2022 Rx Renewal Nesiha Sommer n DO Work Phone: -[facility] DO Work Phone: Start: 05-24-2022 End: 05-24-2022 ambulatory Camryn Baker Facility:[facility] Start: 05-24-2022 End: 05-24-2022 Patient encounter procedure MD Johnny Ronquillo Work Phone: [facility] Start: 05-24-2022 End: 05-24-2022 ambulatory MD Johnny Ronquillo Work Phone: [facility] Work Phone: Start: 05-24-2022 Office outpatient visit 15 minutes Camryn [facility] Start: 05-10-2022 End: 05-10-2022 ambulatory Negro Negrete Facility:[facility] Start: 05-10-2022 End: 05-10-2022 Admission to same day surgery center MD Johnny Ronquillo Work Phone: [facility] Start: 05-10-2022 End: 05-10-2022 ambulatory MD Johnny Ronquillo Work Phone: [facility] Work Phone: Start: 05-08-2022 End: 05-08-2022 ambulatory Negro Negrete Facility:[facility] Start: 05-08-2022 End: 05-08-2022 Patient encounter procedure MD Johnny Ronquillo Work Phone: [facility] Start: 04-12-2022 AUDIT Neisha verma DO Work Phone: -[facility] DO Work Phone: Start: 04-12-2022 End: 04-12-2022 Patient encounter procedure MD Johnny Ronquillo Work Phone: [facility] Start: 04-12-2022 End: 04-12-2022 ambulatory Camryn [employer] [facility] [employer] Other Start: 04-12-2022 Postop follow up vis it related to original px Camryn Calvey [facility] Start: 04-04-2022 End: 04-04-2022 ambulatory Negro Negrete Other [employer] Other Start: 04-04-2022 Telephone encounter Negro CASANOVA [employer] Start: 03-15-2022 End: 03-15-2022 Patient encounter procedure MD Johnny Ronquillo Work Phone: [facility] Start: 03-15-2022 End: 03-15-2022 ambulatory Camryn R [employer] [facility] [employer] Other Start: 03-15-2022 Postop follow up vis it related to original px Camryn Calvey [facility] Start: 02-22-2022 Postop follow up vis it related to original px Camryn Calvey [facility] Start: 02-22-2022 End: 02-22-2022 ambulatory Camryn R Calvey [facility] [employer] Other Start: 02-22-2022 End: 02-22-2022 Patient encounter procedure MD Johnny Ronquillo Work Phone: [facility] Start: 02-07-2022 End: 02-07-2022 ambulatory Camryn Calvey Other [facility] [employer] Other Start: 02-07-2022 Postop follow up vis it related to original px Camryn Calvey [facility] Start: 01-31-2022 End: 01-31-2022 ambulatory Camryn R Calvey Facility:[facility] Start: 01-31-2022 End: 01-31-2022 Admission to same day surgery center MD Johnny Ronquillo [facility] Start: 01-27-2022 End: 01-27-2022 ambulatory Camryn Baker Facility:[facility] Start: 01-27-2022 End: 01-27-2022 Patient encounter procedure MD Johnny Ronquillo Work Phone: [facility] Start: 01-26-2022 Telephone encounter Camryn Baker [facility] Start: 01-26-2022 End: 01-26-2022 ambulatory Camryn Baker [facility] Other Start: 01-26-2022 End: 01-26-2022 Admission to same day surgery center MD Johnny Ronquillo [facility] Start: 01-24-2022 End: 01-24-2022 ambulatory Camryn Baker Facility:[facility] Start: 01-24-2022 End: 01-24-2022 Patient encounter procedure MD Johnny Ronquillo Work Phone: [facility] Start: 01-19-2022 End: 01-19-[address] JOHNNY RONQUILLO Facility:[facility] Start: 01-11-2022 End: 01-12-[address] BELINDA MOREJON Facility:[facility] Start: 11-04-2021 End: 11-05-[address] JOHNNY RONQUILLO Facility:[facility] Start: 09-08-2021 Rx Renewal Neisha Sommer n DO Work Phone: [facility] 250 DO Work Phone: Procedures Date Procedure [...] Work Phone: Operative procedure on wrist Johnny Ronquillo Work Phone: NEGATED: Highlighted row has not occurred! Total colonoscopy Neisha Noyola DO Work Phone: Plan of Treatment Date Care Activity Detail Author Start: 11-15-2023 FUV, Provider: Neisha Noyola, Status: Jose Ramon, Time: 9:30 AM FUV, Provider: Neisha Noyola, Status: Jose Ramon, Time: 9:30 AM [facility] DO Work Phone: Start: 10-05-2022 FUV, Provider: Neisha Noyola, Status: Jose Ramon, Time: 10:10 AM FUV, Provider: Neisha Noyola, Status: Jose Ramon, Time: 10:10 AM [facility] DO Work Phone: Start: 05-10-2022 [facility] Start: 04-27-2022 FUV, Provider: Neisha Noyola, Status: Pen, Time: 9:30 AM FUV, Provider: Neisha Noyola, Status: Jose Ramon, Time: 9:30 AM -[facility] DO Work Phone: Start: 01-31-2022 [facility] Work Phone: Start: 01-31-2022 Plain X-ray of left wrist XR wrist LT min 3V* [facility] Start: 01-31-2022 [facility] Work Phone: Start: 01-26-2022 Open reduction of fracture with internal fixation OR Wrist/Forearm Fx/CLS Reduc W/Pin/ORIF (Left) [facility] Start: 01-26-2022 [facility] Work Phone: Patient referral [facility] Work Phone: Payers Date Payer Category Payer Medicaid [id number] 2022 Self-pay [id number] 1980 Unknown [id number] 2.16.8 [id number] 1980 Unknown [id number] 2.16.84 0.1.204176.3.579.2.593 1980 Unknown [id number] 2.16.84 0.1.222240.3.579.2.593 1980 Unknown [id number] 2.16.84 0.1.969319.3.579.2.593 1980 Unknown [id number] 2.16. 840.1.668166.3.579.2.356 1959 Private Health Insurance [id number] 1959 Unknown [id number] Unknown Unknown [id number] 2.16.8 40.1.513448.3.579.2.531 Unknown [id number] 2.16.8 40.1.266309.3.579.2.531 Unknown [id number] 2.16.8 40.1.453675.3.579.2.531 Unknown [id number] 2.16.8 40.1.165693.3.579.2.531 Unknown [id number] 2.16.8 40.1.582255.3.579.2.531 Unknown [id number] 2.16.8 40.1.912601.3.579.2.531 Unknown [id number] 2.16.8 40.1.253653.3.579.2.531 Unknown [id number] 2.16.8 40.1.632034.3.579.2.531 Unknown [id number] 2.16.8 40.1.212471.3.579.2.531 Unknown [id number] 2.16.8 40.1.175626.3.579.2.531 Unknown [id number] 2.16.8 40.1.727307.3.579.2.531 Social History Date Type Detail Facility Tobacco smoking status [facility] Unknown if ever smoked [facility] Work Phone: Start: 1980 Sex Assigned At Male F [facility] Start: 01-24-2022 End: 05-10-2022 Tobacco smoking status [facility] Ex-smoker (finding) [facility] Sex Assigned At Sex Assigned At Bir th [facility] [employer] Other Former smoker Former smoker -[place] [address] DO Work Phone: Comment on above: weed occasional; Medical Equipment Procedure Code Equipment Code Equipment Origin al Text Equipment Identifier Dates ORIF, fracture, wrist CANCELLOUS 7.5 CRUSHED FDA Start: 01-31-2022 ORIF, fracture, wrist Orthopaedic bone screw, non-bioabsorbable, non-sterile ()[id number] FDA Start: 01-31-2022 ORIF, fracture, wrist Orthopaedic bone screw, non-bioabsorbable, non-sterile ()[id number] FDA Start: 01-31-2022 ORIF, fracture, wrist Orthopaedic bone screw, non-bioabsorbable, non-sterile ()[id number] FDA Start: 01-31-2022 ORIF, fracture, wrist Orthopaedic bone screw, non-bioabsorbable, non-sterile ()[id number] FDA Start: 01-31-2022 ORIF, fracture, wrist Orthopaedic bone screw, non-bioabsorbable, non-sterile ()[id number] FDA Start: 01-31-2022 ORIF, fracture, wrist Orthopaedic fixation plate, non-bioabsorbable, sterile ()[id number] FDA Start: 01-31-2022 ORIF, fracture, wrist Orthopaedic bone screw, non-bioabsorbable, non-sterile ()[id number] FDA Start: 01-31-2022 ORIF, fracture, wrist Orthopaedic bone screw, non-bioabsorbable, non-sterile ()[id number] FDA Start: 01-31-2022 ORIF, fracture, wrist Orthopaedic bone screw, non-bioabsorbable, non-sterile ()[id number] FDA Start: 01-31-2022 ORIF, fracture, wrist Orthopaedic bone screw, non-bioabsorbable, non-sterile ()[id number] FDA Start: 01-31-2022 ORIF, fracture, wrist CANCELLOUS [...] Other specified postprocedural states (ICD-10 - Z98.890) [facility] Other [facility]* Encounter Date Diagnosis Assessment Notes Treatment Notes Treatment Clinical Notes Mar, Closed displaced segmental fracture of shaft of left radius, initial encounter (ICD-10 - S52.362A) Patient instructed that he may begin to slowly progrress activity as tolerated. May work with 60 lb weight restriction, note given Mar, Other specified postprocedural states (ICD-10 - Z98.890) [facility] Other 08-23-2022 Evaluation note* Encounter Date Diagnosis Assessment Notes Treatment Notes Treatment Clinical Notes Mar, Gastroesophageal ref lux disease, unspecified whether esophagitis present (ICD-10 - K21.9) Mar, Dysphagia, unspecifi ed type (ICD-10 - R13.10) [facility] Other 08-03-2022 Evaluation note* Encounter Date Diagnosis [...] at home up to 10lbs as tolerated. [facility] Other 07-13-2022 Evaluation note* Encounter Date Diagnosis [...] Other specified postprocedural states (ICD-10 - Z98.890) [facility] Other 07-13-2022 Notecomplication or change in alignment. No significant healing is noted. There is communication of[facility] Other 06-28-2022 Evaluation note* Encounter Date Diagnosis [...] Other specified postprocedural states (ICD-10 - Z98.890) [facility] Other Evaluation noteNo assessment information available [facility] Work Phone: Evaluation noteNo InformationN[facility] Other History and physical note Author Negro Negrete [facility] May 10, 2022 10:45am Note Date/Time May 10, 2022 10:44am [facility] [address] [place] [address] Gastroenterology H&P Signed Patient: Massimo Santoyo MR#: [id number] : 1980 Acct:[id number] Age/Sex: 41 / M Adm Date: 2 Loc: Room: Type: [facility] Attending Dr: Negro Negrete MD Copies [...] signed by Negro Negrete MD> 05/10/22 1045 [facility] Work Phone: Hiskwto general Narrative - Reported* Type Description Date Medical History high cholesterol Medical History high blood pressure Medical History Gout Surgical History 3 stents [facility] Other History general Narrative - Reported* Type Description Date Medical History high cholesterol Medical History high blood pressure Medical History Gout Surgical History 3 stents Surgical History Left Wrist ORIF [facility] Other History general Narrative - Reported* Type Description Date Medical History high cholesterol Medical History high blood pressure Medical History Gout Medical History PR Surgical History 3 stents Surgical History Left Wrist ORIF [facility] Other Hospital Discharge instructions Additional Instructions DISCHARGE [...] Follow up with PCP. - Office number [phone].[facility] Work Phone: Progress note Author Alexys German [facility] January 26, 2022 12:36pm Note Date/Time January 26, 2022 12:3 6pm [facility] [address] [place] [address] Anesthesia Progress Note Signed Patient: Massimo Santoyo MR#: [id number] : 1980 Acct:[id number] Age/Sex: 41 / M Adm Date: 2 Loc: [place] Room: Type: REG S [place] Attending Dr: Camryn Baker MD Copies to: ~ Anesthesia Progress Note Narrative Narrative: pre-op tox screen positive for cocaine. Will d/w Dr. Baker and reschedule, check pre-op tox screen again on admission. Documented By: Alexys German Jr, MD 01/26/22 1 234 Signed By: <Electronically signed by Alexys German Jr, MD> 01/26/22 1236 [facility] Work Phone: Family History Relationship Condition [...] documented in an alternate sectionNo InformationNo InformationNo Information (unrecognized sect ion and content) No Status Records FoundNo Status Records FoundNo Status Records FoundNo Status Records FoundNo Status Records FoundNo Status Records Found INFORMATION SOURCE (unrecogn ized section and content) DATE CREATED AUTHOR 01/19/2022 [facility] dical Specialist DATE CREATED AUTHOR AUTHOR'S ORGANIZ ATION 09/21/2022 [facility] DATE CREATED AUTHOR AUTHOR'S ORGANIZ ATION 09/29/2022 [facility] DATE CREATED AUTHOR AUTHOR'S ORGANIZ ATION 12/05/2022 [facility] DATE CREATED AUTHOR AUTHOR'S ORGANIZ ATION 12/14/2022 [facility] DATE CREATED AUTHOR AUTHOR'S ORGANIZ [...] Left WristEMAIL PPWRecheck Left WristRecheck Left WristNo Informationlabslab results FOR RECORDS PERTAINING TO PATIENTS WHO ARE [...] BE BASED ON THE PRIMARY CLINICAL RECORDS. [facility] [employer] [facility]. provides no warranty or guarantee of the accuracy or completeness of information in this document.
== END 2023-10-05 10:16 | disposition home or self-care (01) ==
LOC: US 10:16
PROVIDERS: PCP Nurse Practitioner Family; Visit Provider Nurse Practitioner Family
DX: R19.07 Generalized intra-abdominal and pelvic swelling, mass and lump (principal); R22.1 Localized swelling, mass and lump, neck
CPT/HCPCS: 76536; 76705

== ENCOUNTER 2024-09-02 08:34 | Outpatient (OUT) | payer OTHER, SELFPAY ==
--- NOTE | 2024-09-02 08:38 | CT_ITS ---
The [address] [address] Patient Name: SHIRA MONTELONGO MRN: [id number] date: 1980 Sex: M Assigned Patient Location: CT Current Patient Location: CT Accession/Order Number: [id number] Exam Date: 09/02/2024 08:41 Report Date: 09/02/2024 11:55 At the request of: IVY DUNBAR Procedure: CT sinus wo con EXAMINATION: CT sinus wo con HISTORY: Chronic Maxillary Sinusitis COMPARISON: No relevant comparison available. TECHNIQUE: Axial and Coronal CT images were created without and/or with IV contrast as indicated by examination type. Dose reduction techniques were achieved by using automated exposure control and/or adjustment of mA and/or kV according to patient size and/or use of iterative reconstruction technique. FINDINGS: MAXILLARY SINUSES: Mild mucosal thickening bilaterally.. Infundibula are patent. No significant anomalous inferior orbital ethmoid (Joy) air cells. ETHMOID SINUSES: No significant mucosal thickening or fluid. Fovea ethmoidali and lamina papyracea are symmetric and intact. SPHENOID SINUSES: No significant mucosal thickening or fluid. Sphenoethmoidal recesses are patent. No bony dehiscence. FRONTAL SINUSES: No significant mucosal thickening or fluid. Frontal recesses are patent. NASAL FOSSA: 3 mm rightward deviation of the nasal septum. No zackery bullosa or paradoxical turbinates are identified. OTHER: Negative. Limited views of the skull base and orbits are unremarkable. CT/CT sinus wo con IMPRESSION: 1. Mild chronic sinusitis involving the maxillary sinuses. Electronically authenticated by: FLORENTINO CARRASQUILLO Date: 09/02/2024 11:55
--- OUTSIDE RECORDS SUMMARY | 2024-09-02 08:43 | XMS_ITS | CCD ---
Author Organization [facility] ion [facility] Care Team Providers Care Plaster Mold Maker Name Role Phone Unavailable Unavailable MD Sofi Ronquillo Primary Care Provider [phone] MD Camryn Baker Attending Provider [phone] Camryn Baker Unavailable Negro Negrete Unavailable MD Sofi Ronquillo Primary Care Provider MD Camryn Baker Attending Provider [phone] MD Negro Negrete Attending Provider [phone] MD Sofi Ronquillo Primary Care Provider MD Camryn Baker Attending Provider Sofi Ronquillo Unavailable Dr. Jw Noyola Attending Unava ilable Shima, Dr. Sofi Lee Primary Care Unavaila ble SHIMA, DR FARAH Primary Care Unavailable DINESH, DR MARIE Attending Unavailable DINESH, DR MARIE Consulting Unavailable DINESH, DR MARIE Admitting Unavailable LUISA WEIR Consulting Unavailable TIMMIS, DR TREVINO Attending Unavailable TIMMIS, DR TREVINO Consulting Unavailable TIMMICorazon, DR TREVINO Admitting Unavailable SHIMA, DR FARAH Primary Care Unavailable NEIDA, DR FLORENTINO Rose Consulting Unavailable SHIMA, DR FARAH Admitting Unavailable SHIMA, DR FARAH Attending Unavailable SHIMA, DR FARAH Consulting Unavailable SHIMA, DR FARAH Primary Care Unavailable ZIEBBROCK, DR FLORENTINO Rose Consulting Unavailable MD Sofi Ronquillo Primary Care Provider MD Camryn Baker Attending Provider [phone] Jw Noyola Referring Unavailable Jw Noyola Attending Unavailable Dr. Sofi Ronquillo Primary Care UnavailKatey Ulrich Unavailable Sofi Ronquillo MD Primary Care Provider JW NOYOLA Attending Unavailable SOFI RONQUILLO Primary Care Unavailable JESUS JOYNER Attending Unavailable Sofi Ronquillo MD Primary Care Provider [phone] Katey Palomino Attending Unavailable Katey Palomino Primary Care Unavailable Katey Palomino Admitting Unavailable Allergies Allergy Classification Reported Allergen(s) Allergy Type Date of Onset Reaction(s) Facility (9 sources) Lisinopril; Translations: [Lisinopril TABS] Drug Allergy 3 [place]ough [place] [id number] DO Work Phone: (16 sources) Iodinated Contrast Media; Translations: [Iodinated Contrast Media] Allergy to substance 1 [facility] [place] (5 sources) Contrast media Allergy to substance (finding) [place] [id number] DO Work Phone: (1 source) Iodine (And Iodine Containting Drugs) Drug allergy (disorder) [facility] Repository (2 sources) Contrast media Propensity to adverse reactions Unknown [employer] Other (8 sources) Lisinopril; Translations: [LISINOPRIL] Drug Allergy 3 [facility] 3 Repository Medications Current Medications Medication Drug Class(es) Dates Sig (Normalized) Sig (Original) Albuterol (18 sources) beta2-Adrenergic Agonist Start: 06-18-2024 take 1 puff(s) by inhalation every four to six hours Albuterol Sulfate Active 2 PUFF INHALATION EVERY 4-6 HOURS 6.7 June 18, 2024 12:00am Start: 06-03-2024 End: 06-18-2024 Albuterol Sulfate Discontinu ed 2 INH INHALATION EVERY 4-6 HOURS June 02, 2024 11:00pm June 18, 2024 11:36am Start: 05-04-2023 take 2 puff(s) by in halation every four hours for wheezing albuterol HFA 90 mcg/act inhaler Indications: Wheezing Inhale 2 puffs every 4 (four) hours if needed for wheezing or shortness of breath. 18 g 5 05/04/2023 Active Start: 04-04-2021 End: 11-26-2023 take 1 puff(s) by inhalation once daily Albuterol Sulfate Discontinued 2 PUFF INHALATION Daily April 03, 2021 11:00pm November 26, 2023 2:06pm allopurinol 300 mg oral tablet (20 sources) Xanthine Oxidase Inhibitor Start: 12-17-2018 End: 04-04-2021 take 300 mg by mouth once daily at bedtime Allopurinol Active 300 MG PO Daily at bedtime April 04, 2021 4:45pm amLODIPine 10 mg / hydroCHLOROthiazide 25 mg / olmesartan medoxomil 40 mg oral tablet (8 sources) Thiazide Diuretic, Dihydropyridine Calcium Channel Belkis, Angiotensin 2 Receptor Belkis take 1 tablet by mouth every twenty-four hours Olmesartan-amLOD IPine-HCTZ 40-10-25 MG 1 tablet Orally Once a day Active atorvastatin 80 mg oral tablet (20 sources) HMG-CoA Reductase Inhibitor Start: 12-17-2018 take 80 mg by mouth once daily in the evening Atorvastatin Active 80 MG PO Every evening December 16, 2018 11:00pm take 1 tablet by arnold th every twenty-four hours Atorvastatin Calcium 20 MG 1 tablet Oral ly Once a day Active azelastine hydrochloride 0.137 mg/actuat metered dose nasal spray (8 sources) Histamine-1 Receptor Antagonist Start: 11-26-2023 Azelastine Active 2 SPRAY INTRANASAL Once November 25, 2023 11:00pm Start: 10-10-2023 take 1 spray(s) nasa l route in the morning Azelastine HCl 137 MCG/SPRAY solution Indications: Seasonal allergies Administer 1 spray into each nostril in the morning and 1 spray before bedtime. 30 mL 2 10/10/2023 Active Azelastine HCl 0 .1 % 2 sprays in each nostril Nasally As needed for 14 days Active Azithromycin (1 source) Macrolide Antimicrobial Start: 06-18-2024 Azithromycin Active 0 PO daily 01 15June 18, 2024 12:00am Take 2 on day 1 and then take 1 for the next 4 days (days 2-5) benzonatate 200 mg oral capsule (1 source) Non-narcotic Antitussive Start: 06-18-2024 take 200 mg by mouth three times daily Benzonatate Active 200 MG PO Three times daily 11 06June 18, 2024 12:00am clopidogrel 75 mg oral tablet (20 sources) [id number] Platelet Inhibitor Start: 12-17-2018 End: 04-04-2021 Clopidogrel (Plavix) 75 mg tablet Active 75 MG PO Bedtime April 04, 2021 4:32pm START AFTER 1 MONTH OF BRILINTA 90MG TWICE DAILY (SAMPLES GIVEN) Magnesium (2 sources) Magnesium 400 MG as directed Orally Active magnesium oxide 400 mg oral tablet (3 sources) Start: 11-26-2023 take 400 mg by mouth once daily Magnesium Oxide Active 400 MG PO Daily November 25, 2023 11:00pm metoprolol tartrate 50 mg oral tablet (20 sources) beta-Adrenergic Belkis Start: 11-26-2023 take 50 mg by mouth twice daily Metoprolol Tartrate Active 50 MG PO Twice daily November 25, 2023 11:00pm Start: 03-28-2023 take 1 tablet by arnold th every twenty-four hours in the morning metoprolol succinate XL (Toprol-XL) 50 MG 24 hr tablet Take 50 mg by mouth in the morning. 03/28/2023 Active Start: 12-26-2021 End: 11-26-2023 take 50 mg by mouth once daily in the morning Metoprolol Succinate Discontinued 50 MG PO Every morning January 23, 2022 11:00pm November 26, 2023 2:05pm take 1 tablet by aronld th every twelve hours Metoprolol Tartrate 50 MG 1 tablet with food Orally Twice a day Active nitroglycerin 0.4 mg sublingual tablet (19 sources) Nitrate Vasodilator Start: 12-17-2018 Nitroglyce rin Active 0.4 MG SUBLINGUAL every 5 to 15 minutes December 16, 2018 11:00pm until response; do not exceed 3 doses per episode Nitroglycerin 0. 4 MG as directed Sublingual Active pantoprazole 20 mg delayed release oral tablet (15 sources) Proton Pump Inhibitor Start: 05-10-2022 End: 03-23-2024 take 20 mg by mouth once daily Pantoprazole Active 20 MG PO Daily March 23, 2024 7:30am tadalafil 20 mg oral tablet (5 sources) Phosphodiesterase 5 Inhibitor Start: 06-03-2024 take 1 dose by mouth every twenty-fou r hours Tadalafil Active 20 MG PO Daily June 02, 2024 11:00pm administer approximately 30min before sexual activity; do not use more than 1 dose per 24hrs Start: 05-04-2023 take 1 tablet by arnold th once daily as needed tadalafil (Cialis) 20 MG tablet Indications: Impotence of organic origin Take 1 tablet (20 mg) by mouth Daily as needed for erectile dysfunction. 10 tablet 2 05/04/2023 Active valsartan 320 mg oral tablet (20 sources) Angiotensin 2 Receptor Belkis Start: 04-04-2021 End: 05-30-2024 take 320 mg by mouth once daily at bedtime Valsartan Active 320 MG PO Daily at bedtime May 30, 2024 10:37am Completed/Discontinued Medications Medication Drug Class(es) Dates Sig (Normalized) Sig (Original) acetaminophen 325 mg / oxyCODONE hydrochloride 5 mg oral tablet (20 sources) Opioid Agonist Start: 01-24-2022 End: 05-10-2022 take 1 tablet by mouth every four to six hours Oxycodone-Acetamino phen (Percocet) 5-325 mg tablet Discontinued 1 - 2 TAB PO EVERY 4-6 HOURS 50 7 January 31, 2022 May 10, 2022 8:56am Start: 05-09-2021 End: 05-10-2022 take 1-2 tablets by mouth every six hours as needed for pain Oxycodone-Acetaminophen (Percocet) 5-325 mg tablet Discontinued 2 TAB PO Q6H 30 7 May 09, 2021 May 10, 2022 8:56am 1-2 tabs po q 6 hours prn pain amLODIPine 10 mg oral tablet (20 sources) Dihydropyridine Calcium Channel Belkis Start: 04-04-2021 End: 08-09-2024 take 10 mg by mouth once daily at bedtime Amlodipine Discontinued 10 MG PO Daily at bedtime June 01, 2024 8:46am June 03, 2024 7:51am amoxicillin 875 mg / clavulanate 125 mg oral tablet (3 sources) Penicillin-class Antibacterial Start: 11-26-2023 End: 06-03-2024 take 1 tablet by mouth twice daily Amoxicillin-Pot Clavulanate Discontinued 1 TAB PO Twice daily 20 November 25, 2023 11:00pm June 03, 2024 7:26am aspirin 81 mg chewable tablet (12 sources) Platelet Aggregation Inhibitor, Nonsteroidal Anti-inflammatory Drug Start: 12-17-2018 End: 04-04-2021 take 81 mg by mouth once daily Aspirin Discontinued 81 MG PO Daily 0 December 16, 2018 11:00pm April 04, 2021 4:31pm carvedilol 25 mg oral tablet (20 sources) alpha-Adrenergic Belkis, beta-Adrenergic Belkis Start: 04-04-2021 End: 01-24-2022 take 25 mg by mouth twice daily Carvedilol Discontinued 25 MG PO Twice daily April 03, 2021 11:00pm January 24, 2022 11:10am Start: 12-17-2018 End: 04-04-2021 take 6.25 mg by mouth twice daily at mealtime Carvedilol Discontinued 6.25 MG PO Twice daily with meals 60 December 16, 2018 11:00pm April 04, 2021 4:32pm cetirizine hydrochloride 10 mg oral tablet (9 sources) Histamine-1 Receptor Antagonist Start: 05-10-2022 End: 11-26-2023 take 10 mg by mouth once daily Cetirizine Discontinued 10 MG PO Daily May 09, 2022 11:00pm November 26, 2023 2:06pm citalopram 20 mg oral tablet (10 sources) Serotonin Reuptake Inhibitor Start: 10-10-2023 End: 03-07-2024 take 20 mg by mouth once daily Citalopram Discontinued 20 MG PO Daily November 25, 2023 11:00pm March 07, 2024 7:58pm take 1 tablet by arnold th every twenty-four hours Citalopram Hydrobromide 20 MG 1 tablet Orally Once a day Active doxycycline hyclate 100 mg oral tablet (8 sources) Tetracycline-class Drug Start: 01-31-2022 End: 05-10-2022 take 100 mg by mouth twice daily Doxycycline Hyclate Discontinued 100 MG PO Twice daily 10 5 January 30, 2022 11:00pm May 10, 2022 8:47am erythromycin 0.005 mg/mg ophthalmic ointment (3 sources) Macrolide, Macrolide Antimicrobial Start: 11-26-2023 End: 06-03-2024 Erythromycin Discontinued 1 APPLIC EYE-BOTH Twice daily 3.5 5 November 25, 2023 11:00pm June 03, 2024 7:27am furosemide 40 mg oral tablet (12 sources) Loop Diuretic Start: 09-11-2022 End: 06-03-2024 take 40 mg by mouth once daily Furosemide Discontinued 40 MG PO Daily November 25, 2023 11:00pm June 03, 2024 7:51am lisinopril 5 mg oral tablet (12 sources) Angiotensin Converting Enzyme Inhibitor Start: 12-17-2018 End: 04-04-2021 take 5 mg by mouth once daily Lisinopril Discontinued 5 MG PO Daily December 16, 2018 11:00pm April 04, 2021 4:32pm sertraline 50 mg oral tablet (20 sources) Serotonin Reuptake Inhibitor Start: 04-04-2021 End: 11-26-2023 take 50 mg by mouth once daily at bedtime Sertraline Discontinued 50 MG PO Daily at bedtime April 03, 2021 11:00pm November 26, 2023 2:06pm sildenafil 20 mg oral tablet (2 sources) Phosphodiesterase 5 Inhibitor Start: 05-27-2024 End: 06-03-2024 Sildenafil (Pulm.Hypertensio n) Discontinued 20 MG PO Once 30 May 26, 2024 11:00pm June 03, 2024 7:29am administer doses at least 4-6 hours apart traZODone hydrochloride 50 mg oral tablet (12 sources) Serotonin Reuptake Inhibitor Start: 04-04-2021 End: 01-24-2022 take 50 mg by mouth once daily at bedtime Trazodone Discontinued 50 MG PO Daily at bedtime April 03, 2021 11:00pm January 24, 2022 11:15am Problems Active Problems Problem Classification Problem Date Documented Date Episodic/Chronic Abdominal hernia (15 sources) Umbilical hernia; Translations: [Umbilical hernia without obstruction or gangrene] Onset: 08-07-2024 05-09-2021 Episodic Acute myocardial infarction (20 sources) Myocardial infarction; Translations: [Non-ST elevation (NSTEMI) myocardial infarction] Onset: 08-08-2023 12-16-2018 Chronic Adjustment disorders (3 sources) Adjustment disorder; Translations: [Adjustment disorder, unspecified] Onset: 03-28-2023 03-28-2023 Chronic Administrative/social admission (4 sources) Patient encounter status; Translations: [Health examination of defined subpopulations] Onset: 09-19-2022 Episodic Anxiety disorders (6 sources) Anxiety; Translations: [Anxiety disorder, unspecified] 06-03-2024 Chronic Coronary atherosclerosis and other heart disease (20 sources) Ischemic myocardial dysfunction; Translations: [Other specified forms of chronic ischemic heart disease] Onset: 09-19-2022 11-15-2023 Chronic Coronary atherosclerosis and other heart disease (2 sources) Coronary angioplasty status; Translations: [Coronary angioplasty status] Onset: 08-08-2023 Episodic Disorders of lipid metabolism (20 sources) Mixed hyperlipidemia; Translations: [Mixed hyperlipidemia] Onset: 03-28-2023 11-15-2023 Chronic Esophageal disorders (14 sources) Gastroesophageal reflux disease; Translations: [Gastro-esophageal reflux disease without esophagitis] Onset: 04-04-2022 Resolved: 04-04-2022 Chronic Essential hypertension (19 sources) Essential hypertension; Translations: [Unspecified essential hypertension] Onset: 03-28-2023 11-15-2023 Chronic Fracture of upper limb (15 sources) Fracture of distal end of radius; Translations: [Unspecified fracture of the lower end of left radius, initial encounter for closed fracture] Onset: 01-20-2022 Resolved: 03-15-2022 01-31-2022 Episodic Gout and other crystal arthropathies (18 sources) Gout; Translations: [Gout, unspecified] Onset: 03-28-2023 08-08-2023 Chronic Hyperplasia of prostate (3 sources) Benign prostatic hyperplasia; Translations: [Benign prostatic hyperplasia without lower urinary tract symptoms] Onset: 03-28-2023 03-28-2023 Chronic Inflammation; infection of eye (except that caused by tuberculosis or sexually transmitteddisease) (4 sources) Blepharitis; Translations: [Unspecified blepharitis unspecified eye, unspecified eyelid] 11-26-2023 Episodic Mood disorders (6 sources) Recurrent major depression in partial remission; Translations: [Major depressive disorder, recurrent, in partial remission] 06-03-2024 Chronic Other connective tissue disease (3 sources) Musculoskeletal finding; Translations: [Presence of other bone and tendon implants] Onset: 03-28-2023 03-28-2023 Chronic Other lower respiratory disease (2 sources) Hypoxia; Translations: [Hypoxemia] 05-14-2024 Episodic Other male genital disorders (3 sources) Secondary erectile dysfunction; Translations: [Male erectile dysfunction, unspecified] Onset: 03-28-2023 03-28-2023 Chronic Other nervous system disorders (3 sources) Carpal tunnel syndrome; Translations: [Carpal tunnel syndrome, unspecified upper limb] Onset: 03-28-2023 03-28-2023 Chronic Other nervous system disorders (8 sources) Pain in limb; Translations: [Other acute postprocedural pain] 01-31-2022 Episodic Other nutritional; endocrine; and metabolic disorders (9 sources) Morbid obesity; Translations: [Morbid obesity] Onset: 03-28-2023 11-15-2023 Chronic Other nutritional; endocrine; and metabolic disorders (6 sources) Body mass index 40+ - severely obese; Translations: [Body Mass Index 40.0-44.9, adult] 06-03-2024 Chronic Other nutritional; endocrine; and metabolic disorders (2 sources) Morbid (severe) obesity due to excess calories; Translations: [Morbid (severe) obesity due to excess calories (CMS/HCC)] Onset: 08-08-2023 Chronic Other nutritional; endocrine; and metabolic disorders (3 sources) Lipoprotein deficiency disorder; Translations: [Lipoprotein deficiency] Onset: 03-28-2023 03-28-2023 Chronic Other nutritional; endocrine; and metabolic disorders (2 sources) Severe obesity; Translations: [Class 3 severe obesity due to excess calories with serious comorbidity and body mass index (BMI) of 45.0 to 49.9 in adult (CMS/HCC)] 05-14-2024 Chronic Other nutritional; endocrine; and metabolic disorders (1 source) Body mass index (BMI) 45.0-49.9, adult; Translations: [Body Mass Index 45.0-49.9, adult] 06-03-2024 Chronic Other upper respiratory disease (3 sources) Seasonal allergy; Translations: [Other seasonal allergic rhinitis] Onset: 03-28-2023 03-28-2023 Chronic Other upper respiratory infections (16 sources) Chronic maxillary sinusitis; Translations: [Chronic sinusitis, unspecified] Onset: 11-04-2021 Chronic Other upper respiratory infections (4 sources) Acute maxillary sinusitis; Translations: [Acute maxillary sinusitis, unspecified] 11-26-2023 Episodic Residual codes; unclassified (7 sources) Obstructive sleep apnea syndrome; Translations: [Obstructive sleep apnea (adult) (pediatric)] Onset: 03-28-2023 03-28-2023 Chronic Residual codes; unclassified (3 sources) Dependence on enabling machine or device; Translations: [Dependence on other enabling machines and devices] Onset: 03-28-2023 03-28-2023 Chronic Residual codes; unclassified (5 sources) Sleep apnea; Translations: [Sleep apnea, unspecified] Onset: 03-28-2023 03-28-2023 Chronic Residual codes; unclassified (2 sources) Hypersomnia; Translations: [Hypersomnia, unspecified] 05-14-2024 Chronic Residual codes; unclassified (2 sources) Sleep apnea, unspecified; Translations: [Unspecified sleep apnea] 06-03-2024 Chronic Residual codes; unclassified (5 sources) Other specified postprocedural states Onset: 02-07-2022 Resolved: 03-15-2022 Episodic Screening and history of mental health and substance abuse codes (5 sources) Ex-smoker; Translations: [Personal history of tobacco use] Onset: 11-15-2023 11-15-2023 Episodic Past or Other Problems Problem Classification Problem Date Documented Da te Episodic/Chronic Diabetes mellitus without complication (3 sources) Impaired fasting glycemia; Translations: [Impaired fasting glucose] Onset: 03-28-2023 03-28-2023 Episodic E Codes: Machinery (1 source) Contact with other specified agricultural machinery, initial encounter; Translations: [CONTACT OTH AGRICULTURAL MACH INIT] Onset: 01-20-2022 Episodic Joint disorders and dislocations; trauma-related (1 source) Subluxation of distal radioulnar joint of left wrist, initial encounter; Translations: [SUBLUXATION LILY JOINT LT WRIST INIT] Onset: 01-20-2022 Episodic Nausea and vomiting (1 source) Nausea; Translations: [NAUSEA] Onset: 01-20-2022 Episodic Other acquired deformities (3 sources) Deformity of metatarsal; Translations: [Unspecified acquired deformity of left lower leg] Onset: 03-28-2023 03-28-2023 Episodic Other aftercare (1 source) Other detention (current) drug therapy; Translations: [OTH USP CURRENT DRUG THERAPY] Onset: 01-20-2022 Episodic Other connective tissue disease (3 sources) Pain in left arm; Translations: [PAIN IN LEFT ARM] Onset: 01-19-2022 Episodic Other gastrointestinal disorders (9 sources) Dysphagia; Translations: [Dysphagia, unspecified] Onset: 03-28-2023 03-28-2023 Episodic Other gastrointestinal disorders (1 source) Dysphagia, unspecified Onset: 04-04-2022 Resolved: 04-04-2022 Episodic Other lower respiratory disease (3 sources) Snoring; Translations: [Snoring] Onset: 03-28-2023 03-28-2023 Episodic Other lower respiratory disease (3 sources) Wheezing; Translations: [Wheezing] Onset: 03-28-2023 03-28-2023 Episodic Other non-traumatic joint disorders (3 sources) Pain of left wrist; Translations: [Pain in left wrist] Onset: 03-28-2023 03-28-2023 Episodic Residual codes; unclassified (3 sources) Insomnia; Translations: [Insomnia, unspecified] Onset: 03-28-2023 03-28-2023 Episodic Results Test Name Value Interpretation Reference Range Facility Aspartate Amino Transferaseo n 08-07-2024 AST [Catalytic activity/Vol] 21 U/L Normal 13-39 [facility] Comment on above: Result Comment: PERF ORMED BY: [place] [address] PATHOLOGIST HIM SPECIALIST ANDI US M.D. Performed By: #### A ST #### [address] Performed By: #### C BC, CMP #### [address] Complete Blood Count Auto Di ffon 08-07-2024 Basophils (Bld) [#/Vol] 0.1 10*3/uL Normal 0.0-0.2 [facility] Comment on above: Result Comment: PERF ORMED BY: [place] [address] PATHOLOGIST HIM SPECIALIST ANDI US M.D. Performed By: #### C BC, CMP #### [facility] [address] [place] [address] [place] Basophils/100 WBC (Bld) 1.5 % Normal . [facility] Comment on above: Performed By: #### C BC, CMP #### [facility] [address] [place] [id number] [place] Eosinophils (Bld) [#/Vol] 0.2 10*3/uL Normal 0.0-0.45 [facility] Comment on above: Performed By: #### C BC, CMP #### [facility] [address] [place] [address] [place] Eosinophils/100 WBC (Bld) 2.4 % Normal . [facility] Comment on above: Performed By: #### C BC, CMP #### [facility] [address] Erythrocyte distribution width (RBC) [Ratio] 14.6 % Normal 12.0-14.8 [facility] Comment on above: Performed By: #### C BC, CMP #### [facility] [address] [place] [address] [place] Hematocrit (Bld) [Volume fraction] 44.3 % Normal 38.8-50.0 [facility] Comment on above: Performed By: #### C BC, CMP #### [facility] [address] [place] [address] [place] Hemoglobin (Bld) [Mass/Vol] 15.0 g/dL Normal 13.0-17.0 [facility] Comment on above: Performed By: #### C BC, CMP #### [facility] [address] [place] [id number] [place] Lymphocytes (Bld) [#/Vol] 1.7 10*3/uL Normal 1.00-4.8 [facility] Comment on above: Performed By: #### C BC, CMP #### [facility] [address] [place] [id number] [place] Lymphocytes/100 WBC (Bld) 25.1 % Normal . [facility] Comment on above: Performed By: #### C BC, CMP #### [facility] [address] MCH (RBC) [Entitic mass] 30.2 pg Normal 27.5-35.2 [facility] Comment on above: Performed By: #### C BC, CMP #### [facility] [address] MCV (RBC) [Entitic vol] 89.1 fL Normal 83.5-101 [facility] Comment on above: Performed By: #### C BC, CMP #### [address] Mean Corpuscular HGB Conc 33.9 g/dL Normal 32.5-35.6 [facility] Comment on above: Performed By: #### C BC, CMP #### [place] [address] [place] Monocytes (Bld) [#/Vol] 0.5 10*3/uL Normal 0.0-0.8 [facility] Comment on above: Performed By: #### C BC, CMP #### [place] [address] [place] Monocytes/100 WBC (Bld) 8.0 % Normal . [facility] Comment on above: Performed By: #### C BC, CMP #### [address] Neutrophils (Bld) [#/Vol] 4.2 10*3/uL Normal 1.8-7.7 [facility] Comment on above: Performed By: #### C BC, CMP #### [place] [address] [place] Neutrophils/100 WBC (Bld) 63.0 % Normal . [facility] Comment on above: Performed By: #### C BC, CMP #### [facility] [address] NRBC% 0.1 /100{WBC} Normal 0-0.5 [facility] Comment on above: Performed By: #### C BC, CMP #### [facility] [address] Platelet mean volume (Bld) [Entitic vol] 7.2 fL Normal 6.6-10.1 [facility] Comment on above: Performed By: #### C BC, CMP #### [facility] [address] Platelets (Bld) [#/Vol] 275 10*3/uL Normal 150-450 [facility] Comment on above: Performed By: #### C BC, CMP #### [address] RBC (Bld) [#/Vol] 4.97 10*6/uL Normal 3.90-5.60 [facility] Comment on above: Performed By: #### C BC, CMP #### [address] WBC (Bld) [#/Vol] 6.7 10*3/uL Normal 4.1-10.5 [facility] Comment on above: Performed By: #### C BC, CMP #### [address] Comprehensive Metabolic Pane danny 08-07-2024 Albumin [Mass/Vol] 4.2 g/dL Normal 3.5-5.7 [facility] Comment on above: Performed By: #### C BC, CMP #### [address] Albumin/Globulin [Mass ratio] 1.6 {ratio} Normal [facility] Comment on above: Performed By: #### C BC, CMP #### [address] ALP [Catalytic activity/Vol] 52 U/L Normal 34-104 [facility] Comment on above: Result Comment: PERF ORMED BY: [place] [address] PATHOLOGIST HIM SPECIALIST ANDI US M.D. Performed By: #### C BC, CMP #### [address] ALT [Catalytic activity/Vol] 28 U/L Normal 7-52 [facility] Comment on above: Performed By: #### C BC, CMP #### [address] Anion gap [Moles/Vol] 9.2 mmol/L Normal 6.0-15.0 [facility] Comment on above: Performed By: #### C BC, CMP #### [address] Bilirubin [Mass/Vol] 0.4 mg/dL Normal 0.3-1.0 [facility] Comment on above: Performed By: #### C BC, CMP #### [address] Calcium [Mass/Vol] 9.2 mg/dL Normal 8.6-10.3 [facility] Comment on above: Performed By: #### C BC, CMP #### [address] Chloride [Moles/Vol] 101 mmol/L Normal 98-107 [facility] Comment on above: Performed By: #### C BC, CMP #### [address] CO2 [Moles/Vol] 32.2 mmol/L High 21.0-31.0 [facility] Comment on above: Performed By: #### C BC, CMP #### [address] Creatinine [Mass/Vol] 0.83 mg/dL Normal 0.70-1.30 [facility] Comment on above: Performed By: #### C BC, CMP #### [place] [address] [place] GFR/1.73 sq M.predicted MDRD (S/P/Bld) [Vol rate/Area] mL/min/{1.73_m2} Normal [facility] Comment on above: Performed By: #### C BC, CMP #### [address] Globulin (S) [Mass/Vol] 2.6 g/dL Normal [facility] Comment on above: Performed By: #### C BC, CMP #### [address] Glucose [Mass/Vol] 108 mg/dL High 70-100 [facility] Comment on above: Result Comment: [place] Glucose Reference Range is dependent on time and content of last meal. Glucose of more than 200 mg/dL in a nonstressed, ambulatory subject supports the diagnosis of Diabetes Mellitus. ADA recommended reference range Performed By: #### C BC, CMP #### [address] Potassium [Moles/Vol] 4.4 mmol/L Normal 3.5-5.1 [facility] Comment on above: Performed By: #### C BC, CMP #### [address] Protein [Mass/Vol] 6.8 g/dL Normal 6.4-8.9 [facility] Comment on above: Performed By: #### C BC, CMP #### [address] Sodium [Moles/Vol] 138 mmol/L Normal 136-145 [facility] Comment on above: Performed By: #### C BC, CMP #### [address] Urea nitrogen [Mass/Vol] 19 mg/dL Normal 7-25 [facility] Comment on above: Performed By: #### C BC, CMP #### [address] Lipid Panelon 08-07-2024 Cholesterol [Mass/Vol] 154 mg/dL Normal 140-200 [facility] Comment on above: Result Comment: Chol less than 200 mg/dl low risk Chol 201-239 mg/dl borderline risk Chol 240 mg/dl and greater high risk Performed By: #### L IPID #### [place] [address] Cholesterol in HDL [Mass/Vol] 47 mg/dL Normal 23-92 [facility] Comment on above: Result Comment: HDL CHOL ATP-III CLASSIFICATION Cardiovascular Risk HDL > or equal to 60 mg/dL LOW HDL < 40 mg/dL HIGH Performed By: #### L IPID #### [facility] [address] Cholesterol.total/Chol esterol in HDL [Mass ratio] 3.3 {ratio} Normal <5.0 [facility] Comment on above: Result Comment: PERF ORMED BY: [place] [address] PATHOLOGIST HIM SPECIALIST ANDI US M.D. Performed By: #### L IPID #### [address] LDL Cholesterol,Calculated 85 mg/dL Normal 0-100 [facility] Comment on above: Result Comment: LDL ATP III CLASSIFICATION LDL less than 100 mg/dL Optimal LDL 100-129 mg/dL Near or above optimal LDL 130-159 mg/dL Borderline high LDL 160-189 mg/dL High LDL greater than 189 mg/dL Very high Performed By: #### L IPID #### [address] Triglyceride w/Reflex 108 mg/dL Normal 0-149 [facility] Comment on above: Result Comment: TRIG ATP III CLASSIFICATION TRIG less than 150 mg/dL Normal TRIG 150-199 mg/dL Borderline high TRIG 200-500 mg/dL High TRIG greater than 500 mg/dL Very high Standard traceable to the Center for Disease Conrtrol and Prevention (CDC) test method. Performed By: #### L IPID #### [address] VLDL CHOLESTEROL 21 mg/dL Normal [facility] Comment on above: Performed By: #### L IPID #### [address] US abdomen limited -26-2 024 US abdomen limited [facility] Main [place] [address] [place] [address] Ultrasound Report Signed Patient: Massimo Santoyo MR#: [id number] 232 : 1980 Acct:[id number] Age/Sex: 44 / M ADM Date: 08/07/24 Loc: Room: Type: [facility] Attending Dr: MELODY Rojas APRNC Ordering Provider: Katey Palomino APRN, CNP Date of Service: 08/07/24 US/US abdomen limited: K42.9 - Umbilical hernia without obstruction or gangrene Copies to: Katey Palomino APRN, CNP Limited abdominal ultrasound HISTORY: Assessment for umbilical hernia. History of umbilical hernia without obstruction or gangrene. No prior comparison Umbilical hernia present. This measures 4.6 x 2.5 x 4.8 cm. This contains fat. No bowel. No fluid. US/US abdomen limited IMPRESSION: Fat-containing umbilical hernia measuring up to 4.8 cm. Impression dictated by: Danny Castorena M.D.08/07/2024 3:19 PM Dictation Location: [employer] Tech: Marely Jose Transcribed By: ANN-MARIE 08/07/24 1519 Dictated By: Danny Castorena DO 08/07/24 1517 Signed By: 08/07/24 1519 Normal [facility] Office Visit (Cardiology)on 12-12-2022 Follow-up visit Diagnoses/Problems [...] Recorded: 12Dec2022 02:29PM Heart Rate80, R Radial Paubabyy612, LUE, Sitting Whoelubkn71, LUE, Sitting Cxilqp859 lb Tobacco Useb) No Physical Exam (more content not included)... Normal [facility] Tobacco Screening.on 023 Tobacco use status CPHS b) No -[facility] 250 DO Work Phone: Cardiac Stress Teston 2022 Cardiac Stress Test [address], [address], [place] [address] Exercise Stress Test Patient Name: MASSIMO SANTOYO Ordering Physician: [id number] Jw Noyola Study Date: 09/19/2022 Reading Physician: [id number] Jenny Flores MD, [facility] MRN/PID: [id number] Supervising Physician: [id number] Jenny Flores MD, [facility] Accession/Order#: [id number] Referring Physician: JW NOYOLA Date of : 1980 PCP: Sofi Ronquillo Gender: M Fellow: Height: 190.50 cm Nurse: Cosmo Brower RN Weight: 157.40 kg Consultant Education: MICHAEL BSA: 2.77 m2 Technologist: BMI: 43.37 kg/m2 Additional Staff: Age: 42 years cc report to: Patient Location: cc report to: [id number] Jw Noyola DO Study Type: Cardiac Stress Test Diagnosis/ICD: I25.10-Atheroscleroti c heart disease Indication: Clearance Occupational Procedure/CPT: Stress Test Interpretation-33215; Stress Test Supervision-[id number] Falls Risk: Low: Patient has low risk [...] The adequate level of stress was achieved. [id number] Jenny Flores MD, [facility] Electronically signed on 09/19/2022 at 5:38:46 PM Final Normal [facility] XR wrist LT 2Von 05-24-2022 XR wrist LT 2V [facility] [employer] Other XR wrist LT 2V [facility] [employer] Other XR wrist LT 2V [address] [place] [address] [employer] Other XR wrist LT 2[place] [address] No rt [employer] Other XR wrist LT 2V XRay Report [employer] Other XR wrist LT 2V Signed [employer] Other XR wrist LT 2V Patient: Massimo Santoyo MR#: [id number] [employer] Other XR wrist LT 2V 232 [employer] Other XR wrist LT 2V : 1980 Acct:[id number] [employer] Other XR wrist LT 2V Age/Sex: 41 / M ADM Date: 05/24/22 [employer] Other XR wrist LT 2V Loc: [facility] Room: Type : [facility] [employer] Other XR wrist LT 2V Attending Dr: Mindy Baker MD [employer] Other XR wrist LT 2V Copies to: Camryn Baker MD [employer] Other XR wrist LT 2V Ordering Provider: Camryn Baker MD [employer] Other XR wrist LT 2V Date of Service: 05/24/22 [employer] Other XR wrist LT 2V XR/XR wrist LT 2V: Closed displaced segmental fracture of shaft of left [employer] Other XR wrist LT 2V radius, [employer] Other XR wrist LT 2V LEFT WRIST - 2 views [employer] Other XR wrist LT 2V CLINICAL HISTORY: Follow-up distal radius fracture [employer] Other XR wrist LT 2V COMPARISON: Left wrist 04/12/2022 [employer] Other XR wrist LT 2V FINDINGS: [employer] Other XR wrist LT 2V Hardware fixation of a distal radius grossly unchanged in alignment compared to the prior study. [employer] Other XR wrist LT 2V Fracture lines are less conspicuous suggestive of healing. Styloid process fracture of the ulna is [employer] Other XR wrist LT 2V unchanged. [employer] Other XR wrist LT 2V XR/XR wrist LT 2V [employer] Other XR wrist LT 2V IMPRESSION: [employer] Other XR wrist LT 2V HEALING INTERNALLY FIXATED DISTAL RADIUS FRACTURE WITHOUT EVIDENCE OF HARDWARE COMPLICATION. [employer] Other XR wrist LT 2V Impression dictated by: Gilberto Escoto Jr., D.ODandy05/24/2022 4:49 PM [employer] Other XR wrist LT 2V Dictation Location: [place] [address] [employer] Other XR wrist LT 2V Transcribed By: PWS 05/24/22 164 [employer] Other XR wrist LT 2V Dictated By: Gilberto Escoto Jr, DO 05/24/229 [employer] Other XR wrist LT 2V Signed By: Claus Monte [employer] Other XR wrist LT 2V 05/24/221648 [place] [employer] [employer] Other Amphetamine Screen Ql (U)Ord ered By: Negro Negrete on 05-10-2022 Amphetamines Ql (U) Negative Negative [facility] Barbiturates [Presence] in U rineOrdered By: Negro Negrete on 05-10-2022 Barbiturates Ql (U) Negative Negative [facility] Benzodiazepines [Presence] i n UrineOrdered By: Negro Negrete on 05-10-2022 Benzodiazepines Ql (U) Negative Negative [facility] Cannabinoids [Presence] in U rine by Screen methodOrdered By: Negro Negrete on 05-10-2022 Cannabinoids Screen Ql (U) Positive Negative [facility] Comment on above: These are unconfirme d results and should not be used for legal purposes. Drug Cut-Off Concentration: AMPH 1000 ng/mL TRI 200 ng/mL ASHISH 200 ng/mL COCM 300 ng/mL OP 300 ng/mL PCP 25 ng/mL THC 20 ng/mL Laboratory - Drug toxicology Ordered By: Negro Negrete on 05-10-2022 Opiates Ql (U) Negative Negative [facility] Phencyclidine Screen Ql (U)O rdered By: Negro Negrete on 05-10-2022 Phencyclidine Ql (U) Negative Negative [facility] Urine cocaine detectionOrder ed By: Negro Negrete on 05-10-2022 Cocaine Ql (U) Negative Negative [facility] COVID-19 Positive/NegativeOr dered By: Negro Negrete on 05-08-2022 SARS-CoV-2 (COVID-19) N gene CHELSEA+probe Ql (Resp) Negative Negative [facility] Comment on above: Testing for SARS-CoV -2 by RT-PCRThis test was developed and its performance characteristics determined by [employer] ([employer]) and validated at the [facility]. This test has not been FDA [...] LT 2Von 04-12-2022 XR wrist LT 2V [facility] [employer] Other XR wrist LT 2V [facility] [employer] Other XR wrist LT 2V [address] [place] [address] [employer] Other XR wrist LT 2[place] [address] [facility] [employer] Other XR wrist LT 2V XRay Report [employer] Other XR wrist LT 2V Signed [employer] Other XR wrist LT 2V Patient: Massimo Santoyo MR#: [id number] [place] [employer] Other XR wrist LT 2V 232 [employer] Other XR wrist LT 2V : 1980 Acct:[id number] [employer] Other XR wrist LT 2V Age/Sex: 41 / M ADM Date: 04/12/22 [employer] Other XR wrist LT 2V Loc: [facility] Room: Type : [facility] [employer] Other XR wrist LT 2V Attending Dr: Mindy Baker MD [employer] Other XR wrist LT 2V Copies to: Camryn Baker MD [employer] Other XR wrist LT 2V Ordering Provider: Camryn Baker MD [employer] Other XR wrist LT 2V Date of Service: 04/12/22 [employer] Other XR wrist LT 2V XR/XR wrist LT 2V: Closed displaced segmental fracture of shaft of left [employer] Other XR wrist LT 2V radius, [employer] Other XR wrist LT 2V XR wrist LT 2V 04/12/2022 3:11 PM [employer] Other XR wrist LT 2V SIGNS AND SYMPTOMS: Follow-up, [employer] Other XR wrist LT 2V Closed displaced segmental fracture of shaft of left radius, [employer] Other XR wrist LT 2V PROTOCOL: Frontal an d lateral radiograph of the left wrist [employer] Other XR wrist LT 2V COMPARISON: 03/15/2022 [employer] Other XR wrist LT 2V FINDINGS: [employer] Other XR wrist LT 2V There is hardware fixation along the volar aspect of the distal radius with a comminuted radius [employer] Other XR wrist LT 2V fracture similar to the prior exam. There is evidence of slight interval healing without change in [employer] Other XR wrist LT 2V alignment. There is an ulnar styloid fracture which is not identified. [employer] Other XR wrist LT 2V XR/XR wrist LT 2V [employer] Other XR wrist LT 2V IMPRESSION: [employer] Other XR wrist LT 2V Hardware fixation of a comminuted fracture of the distal radius without hardware complication. No [place] [employer] Other XR wrist LT 2V change in alignment. [employer] Other XR wrist LT 2V Impression dictated by: Mazin Boo M.D.04/12/2022 4:40 PM [employer] Other XR wrist LT 2V Dictation Location: [address] [employer] Other XR wrist LT 2V Transcribed By: ANN-MARIE 04/12/[address] [place] [address] [employer] Other XR wrist LT 2V Dictated By: Mazin Boo II, MD 04/12/[address] [place] [address] [employer] Other XR wrist LT 2V Signed By: [employer] Other XR wrist LT 2V 04/12/22 [facility] Other XR wrist LT 2Von 03-15-2022 XR wrist LT 2V [facility] [employer] Other XR wrist LT 2V [facility] Main [facility] [employer] Other XR wrist LT 2V [address] [place] [address] [employer] Other XR wrist [place] 2[place] [address] [facility] [employer] Other XR wrist LT 2V XRay Report [employer] Other XR wrist LT 2V Signed [employer] Other XR wrist LT 2V Patient: Massimo Santoyo MR#: [id number] [place] [employer] Other XR wrist LT 2V 232 [employer] Other XR wrist LT 2V : 1980 Acct:[id number] [employer] Other XR wrist LT 2V Age/Sex: 41 / M ADM Date: 03/15/22 [employer] Other XR wrist LT 2V Loc: [facility] Room: Type : [facility] [employer] Other XR wrist LT 2V Attending Dr: Mindy Baker MD [employer] Other XR wrist LT 2V Copies to: Camryn Baker MD [employer] Other XR wrist LT 2V Ordering Provider: Camryn Baker MD [employer] Other XR wrist LT 2V Date of Service: 03/15/22 [employer] Other XR wrist LT 2V XR/XR wrist LT 2V: Closed displaced segmental fracture of shaft of left [employer] Other XR wrist LT 2V radius, [employer] [facility] [employer] Other XR wrist LT 2V LEFT WRIST - 2 views [employer] Other XR wrist LT 2V COMPARISON: 02/22/2022 [employer] Other XR wrist LT 2V CLINICAL DATA: Follow-up wrist fractures [employer] Other XR wrist LT 2V AP and lateral views were obtained. There is redemonstration of comminuted fractures involving the [employer] Other XR wrist LT 2V distal radial shaft down to the articular surface at the distal radius. There is a volar plate and [employer] Other XR wrist LT 2V multiple screws jeremiah g the radius. Findings are similar to the prior. A mildly distracted ulnar [employer] Other XR wrist LT 2V styloid fracture is also again noted. There is radiocarpal joint space narrowing. No dislocation is [employer] Other XR wrist LT 2V seen. There is continued soft tissue swelling. [employer] Other XR wrist LT 2V XR/XR wrist LT 2V [employer] Other XR wrist LT 2V IMPRESSION: [employer] Other XR wrist LT 2V STABLE WRIST FRACTURES. [employer] Other XR wrist LT 2V Impression dictated by: Luisa Espinoza M.D.03/15/2022 3:57 PM [employer] Other XR wrist LT 2V Dictation Location: [address] [employer] Other XR wrist LT 2V Transcribed By: ANN-MARIE 03/15/22 [facility] [employer] Other XR wrist LT 2V Dictated By: Luisa Espinoza MD 03/15/22 [facility] [employer] Other XR wrist LT 2V Signed By: [employer] Other XR wrist LT 2V 03/15/22 [facility] Other XR wrist LT 2Von 02-22-2022 XR wrist LT 2V [facility] [employer] Other XR wrist LT 2V [facility] [employer] Other XR wrist LT 2V [address] [place] [address] [employer] Other XR wrist LT 2V [place] [id number] No rt [employer] Other XR wrist LT 2V XRay Report [employer] Other XR wrist LT 2V Signed [employer] Other XR wrist LT 2V Patient: Massimo Santoyo MR#: [id number] [employer] Other XR wrist LT 2V 232 [employer] Other XR wrist LT 2V : 1980 Acct:[id number] [employer] Other XR wrist LT 2V Age/Sex: 41 / M ADM Date: 02/22/22 [employer] Other XR wrist LT 2V Loc: [facility] Room: Type : [facility] [employer] Other XR wrist LT 2V Attending Dr: Mindy Baker MD [employer] Other XR wrist LT 2V Copies to: Camryn Baker MD [employer] Other XR wrist LT 2V Ordering Provider: Camryn Baker MD [employer] Other XR wrist LT 2V Date of Service: 02/22/22 [employer] Other XR wrist LT 2V XR/XR wrist LT 2V: Closed displaced segmental fracture of shaft of left [employer] Other XR wrist LT 2V radius, [employer] Other XR wrist LT 2V XR wrist LT 2V 02/22/2022 9:58 AM [employer] Other XR wrist LT 2V SIGNS AND SYMPTOMS: Left distal radius fracture, follow-up [employer] Other XR wrist LT 2V PROTOCOL: Frontal an d lateral radiographs of the left wrist [employer] Other XR wrist LT 2V COMPARISON: 01/31/2022 [employer] Other XR wrist LT 2V FINDINGS: [employer] Other XR wrist LT 2V There is plate and screw fixation of the distal radius similar to the prior exam without hardware [employer] Other XR wrist LT 2V fracture lines of th e radiocarpal joint space. There is a nondisplaced ulnar styloid fracture which [employer] Other XR wrist LT 2V is unchanged. There is diffuse soft tissue swelling. [employer] Other XR wrist LT 2V XR/XR wrist LT 2V [employer] Other XR wrist LT 2V IMPRESSION: [employer] Other XR wrist LT 2V Status post fixation of the comminuted distal radius fracture without hardware complication, [employer] Other XR wrist LT 2V malalignment, or significant interval healing. [employer] Other XR wrist LT 2V There is an unchange d mildly displaced fracture of the ulnar styloid. [employer] Other XR wrist LT 2V Impression dictated by: Mazin Boo M.D.02/22/2022 4:27 PM [employer] Other XR wrist LT 2V Dictation Location: [place] [address] [employer] Other XR wrist LT 2V Transcribed By: ANN-MARIE 02/22/22 [facility] [employer] Other XR wrist LT 2V Dictated By: Mazin Boo II, MD 02/22/22 [facility] [employer] Other XR wrist LT 2V Signed By: [employer] Other XR wrist LT 2V 02/22/22 162 [facility] Other Amphetamine Screen Ql (U)Ord ered By: Alexys German on 01-31-2022 Amphetamines Ql (U) Negative Negative [facility] Barbiturates [Presence] in U rineOrdered By: Alexys German on 01-31-2022 Barbiturates Ql (U) Negative Negative [facility] Benzodiazepines [Presence] i n UrineOrdered By: Alexys German on 06-21-2022 Benzodiazepines Ql (U) Negative Negative [facility] Cannabinoids [Presence] in U rine by Screen methodOrdered By: Alexys German on 01-31-2022 Cannabinoids Screen Ql (U) Positive Negative [facility] Comment on above: These are unconfirme d results and should not be used for legal purposes. Drug Cut-Off Concentration: AMPH 1000 ng/mL TRI 200 ng/mL ASHISH 200 ng/mL COCM 300 ng/mL OP 300 ng/mL PCP 25 ng/mL THC 20 ng/mL Laboratory - Drug toxicology Ordered By: Alexys German on 01-31-2022 Opiates Ql (U) Negative Negative [facility] Phencyclidine Screen Ql (U)O rdered By: Alexys German on 01-31-2022 Phencyclidine Ql (U) Negative Negative [facility] Urine cocaine detectionOrder ed By: Alexys German on 01-31-2022 Cocaine Ql (U) Negative Negative [facility] COVID-19 Positive/NegativeOr dered By: Camryn Baker on 01-27-2022 SARS-CoV-2 (COVID-19) N gene CHELSEA+probe Ql (Resp) Negative Negative [facility] Comment on above: Testing for SARS-CoV -2 by RT-PCR This test was developed and its performance characteristics determined by [employer] ([employer]) and validated at the [facility]. This test has not been FDA [...] on 01-26-2022 Amphetamines Ql (U) Negative Negative [facility] Barbiturates [Presence] in U rineOrdered By: Chele Hanks on 01-26-2022 Barbiturates Ql (U) Negative Negative [facility] Benzodiazepines [Presence] i n UrineOrdered By: Chele Hanks on 01-26-2022 Benzodiazepines Ql (U) Negative Negative [facility] Cannabinoids [Presence] in U rine by Screen methodOrdered By: Chele Hanks on 01-26-2022 Cannabinoids Screen Ql (U) Positive Negative [facility] Comment on above: These are unconfirme d results and should not be used for legal purposes. Drug Cut-Off Concentration: AMPH 1000 ng/mL TRI 200 ng/mL ASHISH 200 ng/mL COCM 300 ng/mL OP 300 ng/mL PCP 25 ng/mL THC 20 ng/mL Laboratory - Drug toxicology Ordered By: Chele Hanks on 01-26-2022 Opiates Ql (U) Negative Negative [facility] Phencyclidine Screen Ql (U)O rdered By: Chele Hanks on 01-26-2022 Phencyclidine Ql (U) Negative Negative [facility] Urine cocaine detectionOrder ed By: Chele Hanks on 01-26-2022 Cocaine Ql (U) Positive Negative [facility] Basophils Auto (Bld) [#/Vol] Ordered By: Camryn Baker on 01-24-2022 Basophils (Bld) [#/Vol] 0.1 10*3/uL 0.0-0.2 [facility] Basophils/100 WBC Auto (Bld) Ordered By: Camryn Baker on 01-24-2022 Basophils/100 WBC (Bld) 0.7 % . [facility] Blood hemoglobin measurement (mass/volume)Ordered By: Camryn Baker on 01-24-2022 Hemoglobin (Bld) [Mass/Vol] 15.1 g/dL 13.0-17.0 [facility] Blood leukocytes automated c ount (number/volume)Ordered By: Camryn Baker on 01-24-2022 WBC (Bld) [#/Vol] 9.4 10*3/uL 4.5-11.0 [facility] Body fluid albumin measureme nt (mass/volume)Ordered By: Camryn Baker on 01-24-2022 Albumin (Body fld) [Mass/Vol] 3.9 g/dL 3.2-5.5 [facility] COVID-19 Positive/NegativeOr dered By: Camryn Baker on 01-24-2022 SARS-CoV-2 (COVID-19) N gene CHELSEA+probe Ql (Resp) Negative Negative [facility] Comment on above: Testing for SARS-CoV -2 by RT-PCR This test was developed and its performance characteristics determined by [employer] ([employer]) and validated at the [facility]. This test has not been FDA [...] the authorization is terminated or revoked sooner. Creatinine and Glomerular fi ltration rate.predicted panel (S/P/Bld)Ordered By: Camryn Baker on 01-24-2022 Creatinine [Mass/Vol] 0.86 mg/dL 0.64-1.27 [facility] Eosinophils Auto (Bld) [#/Vo l]Ordered By: Camryn Baker on 01-24-2022 Eosinophils (Bld) [#/Vol] 0.2 10*3/uL 0.0-0.45 [facility] Eosinophils/100 WBC Auto (Bl d)Ordered By: Camryn Baker on 01-24-2022 Eosinophils/100 WBC (Bld) 2.1 % . [facility] Erythrocyte distribution wid th Auto (RBC) [Ratio]Ordered By: Camryn Baker on 01-24-2022 Erythrocyte distribution width (RBC) [Ratio] 15.2 % 12.0-14.8 [facility] Estimated glomerular filtrat ion rate (GFR) non- AmericanOrdered By: Camryn Baker on 01-24-2022 GFR/1.73 sq M.predicted among non-blacks MDRD (S/P/Bld) [Vol rate/Area] > 60 mL/Min [facility] Globulin Calc (S) [Mass/Vol] Ordered By: Camryn Baker on 01-24-2022 Globulin (S) [Mass/Vol] 3.2 g/dL [facility] Hematocrit Auto (Bld) [Volum e fraction]Ordered By: Camryn Baker on 01-24-2022 Hematocrit (Bld) [Volume fraction] 43.1 % 38.8-50.0 [facility] Laboratory - Hematology and Cell countsOrdered By: Camryn Baker on 01-24-2022 Nucleated RBC/100 WBC (Bld) [Ratio] 0.1 % 0-0.5 [facility] Lymphocytes Auto (Bld) [#/Vo l]Ordered By: Camryn Baker on 01-24-2022 Lymphocytes (Bld) [#/Vol] 1.9 10*3/uL 1.00-4.8 [facility] Lymphocytes/100 WBC Auto (Bl d)Ordered By: Camryn Baker on 01-24-2022 Lymphocytes/100 WBC (Bld) 20.2 % . [facility] MCH Auto (RBC) [Entitic mass ]Ordered By: Camryn Baker on 01-24-2022 MCH (RBC) [Entitic mass] 29.8 pg 27.5-35.2 [facility] MCHC Auto (RBC) [Mass/Vol]Or dered By: Camryn Baker on 01-24-2022 MCHC (RBC) [Mass/Vol] 35.0 g/dL 32.5-35.6 [facility] MCV Auto (RBC) [Entitic vol] Ordered By: Camryn Baker on 01-24-2022 MCV (RBC) [Entitic vol] 85.1 fL 83.5-101 [facility] Monocytes Auto (Bld) [#/Vol] Ordered By: Camryn Baker on 01-24-2022 Monocytes (Bld) [#/Vol] 0.8 10*3/uL 0.0-0.8 [facility] Monocytes/100 WBC Auto (Bld) Ordered By: Camryn Baker on 01-24-2022 Monocytes/100 WBC (Bld) 8.1 % . [facility] Neutrophils Auto (Bld) [#/Vo l]Ordered By: Camryn Baker on 01-24-2022 Neutrophils (Bld) [#/Vol] 6.5 10*3/uL 1.8-7.7 [facility] Neutrophils/100 WBC Auto (Bl d)Ordered By: Camryn Baker on 01-24-2022 Neutrophils/100 WBC (Bld) 68.9 % . [facility] No Panel InformationOrdered By: Camryn Baker on 01-24-2022 Estimated GFR () > 60 mL/Min [facility] Comment on above: GFR estimated refere nce range: According to KDOQI guidelines, <60 ml/min/1.73m2 is sufficient to diagnose a patient with chronic kidney disease. Pharmacy Creatinine Clearance (Chem N/A [facility] Platelet mean volume Auto (B ld) [Entitic vol]Ordered By: Camryn Baker on 01-24-2022 Platelet mean volume (Bld) [Entitic vol] 7.4 fL 6.6-10.1 [facility] Platelets Auto (Bld) [#/Vol] Ordered By: Camryn Baker on 01-24-2022 Platelets (Bld) [#/Vol] 388 10*3/uL 150-450 [facility] Protein [Mass/volume] in Ser um or PlasmaOrdered By: Camryn Baker on 01-24-2022 Protein [Mass/Vol] 7.1 g/dL 6.1-7.9 [facility] RBC Auto (Bld) [#/Vol]Ordere d By: Camryn Baker on 01-24-2022 RBC (Bld) [#/Vol] 5.07 10*6/uL 3.90-5.60 [facility] Serum or plasma alanine prather otransferase measurement without P-5'-P (enzymatic activiOrdered By: Camryn Baker on 01-24-2022 ALT No additional P-5'-P [Catalytic activity/Vol] 33 U/L 10-60 [facility] Serum or plasma albumin/glob ulin mass ratioOrdered By: Camryn Baker on 01-24-2022 Albumin/Globulin [Mass ratio] 1.2 {ratio} [facility] Serum or plasma alkaline troy sphatase measurement (enzymatic activity/volume)Ordered By: Camryn Baker on 01-24-2022 ALP [Catalytic activity/Vol] 43 U/L 32-92 [facility] Serum or plasma aspartate am inotransferase measurement (enzymatic activity/volume)Ordered By: Camryn Baker on 01-24-2022 AST [Catalytic activity/Vol] 29 U/L 10-42 [facility] Serum or plasma calcium nathaniel urement (mass/volume)Ordered By: Camryn Baker on 01-24-2022 Calcium [Mass/Vol] 10.0 mg/dL 8.2-10.2 [facility] Serum or plasma chloride chanda surement (moles/volume)Ordered By: Camryn Baker on 01-24-2022 Chloride [Moles/Vol] 95 mmol/L 95-114 [facility] Serum or plasma glucose nathaniel urement (mass/volume)Ordered By: Camryn Baker on 01-24-2022 Glucose [Mass/Vol] 98 mg/dL 70-100 [facility] Comment on above: ADA recommended refe rence range Random Glucose Reference Range is dependent on time and content of last meal. Glucose of more than 200 mg/dL in a nonstressed, ambulatory subject supports the diagnosis of Diabetes Mellitus. Serum or plasma potassium me asurement (moles/volume)Ordered By: Camryn Baker on 01-24-2022 Potassium [Moles/Vol] 4.4 mmol/L 3.5-5.1 [facility] Serum or plasma sodium measu rement (moles/volume)Ordered By: Camryn Baker on 01-24-2022 Sodium [Moles/Vol] 136 mmol/L 136-146 [facility] Serum or plasma total biliru bin measurement (mass/volume)Ordered By: Camryn Baker on 01-24-2022 Bilirubin [Mass/Vol] 0.8 mg/dL 0.3-1.2 [facility] Serum or plasma total carbon dioxide measurement (moles/volume)Ordered By: Camryn Baker on 01-24-2022 CO2 [Moles/Vol] 26.0 mmol/L 22.0-30.0 [facility] Serum or plasma urea nitroge n measurement (mass/volume)Ordered By: Camryn Baker on 01-24-2022 Urea nitrogen [Mass/Vol] 10 mg/dL 05-05 [facility] XR ELBOW LT MIN 3 VIEWSon [...] LUISA WEIR Date: 2022-01-19 15:28 Normal [facility] Lipid Panelon 01-18-2022 Cholesterol [Mass/Vol] 146 mg/dL Normal <200 No rthern [place] [employer] Comment on above: Order Comment: I[facility]Systems Testing performed at: [facility], [facility], [address] [place] [address], [address] [place] [address], [phone], Well Puller: Vaibhav Moreno MD [facility] Date/Time: [facility] Results Received Date/Time: [facility] Reported Date/Time: Performed By: #### L IPD #### [facility] Default [address] [place] [address] Cholesterol in HDL [Mass/Vol] 39 mg/dL Low > OR = 40 [facility] [employer] Comment on above: Order Comment: [facility] Testing performed at: [facility], [address] [facility], [address] [place] [address], [address] [place] [address], Well Puller: Vaibhav Moreno MD [facility] Date/Time: [facility] Results Received Date/Time: [facility] Reported Date/Time: Performed By: #### L IPD #### [facility] Default [address] [place] [address] Cholesterol in LDL [Mass/Vol] 69 mg/dL Normal [facility] Specialist Comment on above: Order Comment: [facility] Testing performed at: [facility], [address] [facility], [address] [place] [address], [address] [place] [address], Well Puller: Vaibhav Moreno MD [facility] Date/Time: [facility] [...] LDL-C. Nadeem SS et al. DEVEN. 2013;310(19): 9176-0645 (http://[email or web address] [email or web address]/faq/FGT992) Performed By: #### L IPD #### [facility] Default [address] [place] [address] NON HDL CHOLESTEROL 107 mg/dL (calc) Normal <130 [facility] Cl[employer]er Comment on above: Order Comment: [facility] Testing performed at: [facility], [address], [address] [place], [phone], Well Puller: Vaibhav Moreno MD [facility] Date/Time: [facility] Results Received Date/Time: [facility] Reported Date/Time: Result Comment: For patients with diabetes plus 1 major ASCVD risk factor, treating to a non-HDL-C goal of <100 mg/dL (LDL-C of <70 mg/dL) is considered a therapeutic option. Performed By: #### L IPD #### [facility] Default [address] [place] [address] Triglyceride [Mass/Vol] 292 mg/dL High <150 [facility] Comment on above: Order Comment: [facility] Testing performed at: [employer] [employer] [facility], [address], [address] [place] [address], [phone], Well Puller: Vaibhav Moreno MD [facility] Date/Time: [facility] Results Received Date/Time: [facility] Reported Date/Time: Result Comment: If a non-fasting specimen was collected, consider repeat triglyceride testing on a fasting specimen if clinically indicated. Billy et al. J. of Clin. Lipidol. 2015;9:129-169. Performed By: #### L IPD #### [facility] Default [address] [place] [address] CT SINUSES WO CONon 01-12-20 CT SINUSES [...] patent. No significant anomalous inferior orbital ethmoid (Jyo) air cells. ETHMOID SINUSES: No significant mucosal [...] by: FLORENTINO CARRASQUILLO Date: 2022-01-11 08:22 Normal [facility] CT SINUSES WO CONon 11-07-19 22 [...] by: FLORENTINO CARRASQUILLO Date: 2021-11-06 07:00 Normal [facility] Vital Signs Date Time Vital Sign Value Performing Clinician Facility 06-18-2024 11:32-0500 Body height 190.5 cm [facility] 06-18-2024 11:32-0500 Body mass index (BMI) [Ratio] 44.4 kg/m2 [facility] 06-18-2024 11:32-0500 Body temperature 97.6 [degF] [facility] 06-18-2024 11:32-0500 Body weight 161.47 kg [facility] 06-18-2024 11:32-0500 Diastolic blood pressure 88 mm[Hg] [facility] 06-18-2024 11:32-0500 SaO2% (BldA) [Mass fraction] 95 % [facility] 06-18-2024 11:32-0500 Systolic blood pressure 130 mm[Hg] [facility] 06-03-2024 08:23-0400 Body height 190.5 cm [facility] 06-03-2024 08:23-0400 Body mass index (BMI) [Ratio] 45.3 kg/m2 [facility] 06-03-2024 08:23-0400 Body temperature 95.5 [degF] [facility] 06-03-2024 08:23-0400 Body weight 164.42 kg [facility] 06-03-2024 08:23-0400 Diastolic blood pressure 80 mm[Hg] [facility] 06-03-2024 08:23-0400 Heart rate 56 /min [facility] 06-03-2024 08:23-0400 SaO2% (BldA) [Mass fraction] 94 % [facility] 06-03-2024 08:23-0400 Systolic blood pressure 148 mm[Hg] [facility] 05-14-2024 09:23-0400 Body height 190.5 cm Jesus Lorenzo DO Work Phone: [facility] 05-14-2024 09:23-0400 Body mass index (BMI) [Ratio] 45 kg/m2 Jesus Lorenzo DO Work Phone: [facility] 05-14-2024 09:23-0400 Body weight 163.29 kg Jesus Lorenzo DO Work Phone: [facility] 05-14-2024 09:23-0400 Diastolic blood pressure 96 mm[Hg] Jesus Lorenzo DO Work Phone: [facility] 05-14-2024 09:23-0400 Heart rate 55 /min Jesus Lorenzo DO Work Phone: [facility] 05-14-2024 09:23-0400 SaO2% (BldA) [Mass fraction] 94 % Jesus Joyner DO Work Phone: [facility] 05-14-2024 09:23-0400 Systolic blood pressure 152 mm[Hg] Jesus Joyner DO Work Phone: [facility] 11-26-2023 14:56-0400 Body height 190.5 cm [facility] 11-26-2023 14:56-0400 Body mass index (BMI) [Ratio] 32.5 kg/m2 [facility] 11-26-2023 14:56-0400 Body weight 117.93 kg [facility] 11-26-2023 14:56-0400 Diastolic blood pressure 86 mm[Hg] [facility] 11-26-2023 14:56-0400 Heart rate 66 /min [facility] 11-26-2023 14:56-0400 SaO2% (BldA) [Mass fraction] 98 % [facility] 11-26-2023 14:56-0400 Systolic blood pressure 128 mm[Hg] [facility] 11-15-2023 09:37-0400 Diastolic blood pressure 82 mm[Hg] Jw Noyola DO Work Phone: [facility] 11-15-2023 09:37-0400 Systolic blood pressure 134 mm[Hg] Jw Noyola DO Work Phone: [facility] 11-15-2023 09:18-0400 Body height 190.5 cm Jw Noyola DO Work Phone: [facility] 11-15-2023 09:18-0400 Body mass index (BMI) [Ratio] 45.05 kg/m2 Jw Noyola DO Work Phone: [facility] 11-15-2023 09:18-0400 Body weight 163.48 kg Jw Noyola DO Work Phone: [facility] 11-15-2023 09:18-0400 Heart rate 62 /min Jw Noyola DO Work Phone: [facility] 09-12-2023 16:00-0500 Body height 190.5 cm [facility] 09-12-2023 16:00-0500 Body weight 119.29 kg [facility] 09-12-2023 16:00-0500 Diastolic blood pressure 90 mm[Hg] [facility] 09-12-2023 16:00-0500 Systolic blood pressure 136 mm[Hg] [facility] 12-12-2022 14:29-0400 Body weight 165.11 kg Rugen M Shima Work Phone: [facility] DO Work Phone: 12-12-2022 14:29-0400 Diastolic blood pressure 86 mm[Hg] Rugen M Shima Work Phone: [facility] DO Work Phone: 12-12-2022 14:29-0400 Heart rate 80 /min Rugen M Camillus Work Phone: [facility] DO Work Phone: 12-12-2022 14:29-0400 Systolic blood pressure 142 mm[Hg] Rugen M Shima Work Phone: [facility] DO Work Phone: 05-10-2022 11:30-0400 Diastolic blood pressure 80 mm[Hg] MD Sofi Ronquillo Work Phone: [facility] 05-10-2022 11:30-0400 Heart rate 68 /min MD Sofi Ronquillo Work Phone: [facility] 05-10-2022 11:30-0400 Respiratory rate 18 /min MD Sofi Ronquillo Work Phone: [facility] 05-10-2022 11:30-0400 SaO2% (BldA) [Mass fraction] 98 % MD Sofi Ronquillo Work Phone: [facility] 05-10-2022 11:30-0400 Systolic blood pressure 136 mm[Hg] MD Sofi Ronquillo Work Phone: [facility] 05-10-2022 09:58-0400 Body height 190.5 cm MD Sofi Ronquillo Work Phone: [facility] 05-10-2022 09:58-0400 Body weight 151.95 kg MD Sofi Ronquillo Work Phone: [facility] 02-07-2022 16:45-0400 Body height 190.5 cm Camryn Baker Other [employer] Other 02-07-2022 16:45-0400 Body mass index (BMI) [Ratio] 43.12 kg/m2 Camrynirena Baker Other [employer] Other 02-07-2022 16:45-0400 Body weight 156.49 kg Camryn Baker Other [employer] Other 01-31-2022 19:34-0400 Diastolic blood pressure 73 mm[Hg] MD Sofi Ronquillo Work Phone: [facility] 01-31-2022 19:34-0400 Heart rate 68 /min MD Sofi Ronquillo Work Phone: [facility] 01-31-2022 19:34-0400 Respiratory rate 20 /min MD Sofi Ronquillo Work Phone: [facility] 01-31-2022 19:34-0400 SaO2% (BldA) [Mass fraction] 93 % MD Sofi Ronquillo Work Phone: [facility] 01-31-2022 19:34-0400 Systolic blood pressure 132 mm[Hg] MD Sofi Ronquillo Work Phone: [facility] 01-31-2022 18:25-0400 Body temperature 97.5 [degF] MD Sofi Ronquillo Work Phone: [facility] 01-31-2022 18:15-0400 Inhaled oxygen flow rate 4 L/min MD Sofi Ronquillo Work Phone: [facility] 01-31-2022 13:43-0400 Body height 190.5 cm MD Sofi Ronquillo Work Phone: [facility] 01-31-2022 13:43-0400 Body mass index (BMI) [Ratio] 41.8 kg/m2 MD Sofi Ronquillo Work Phone: [facility] 01-31-2022 13:43-0400 Body weight 151.95 kg MD Sofi Ronquillo Work Phone: [facility] 01-26-2022 10:45-0400 Body height 205.74 cm MD Sofi Ronquillo Work Phone: [facility] 01-26-2022 10:45-0400 Body mass index (BMI) [Ratio] 36.6 kg/m2 MD Sofi Ronquillo Work Phone: [facility] 01-26-2022 10:45-0400 Body temperature 97.7 [degF] MD Sofi Ronquillo Work Phone: [facility] 01-26-2022 10:45-0400 Body weight 155 kg MD Sofi Ronquillo Work Phone: [facility] 01-26-2022 10:45-0400 Diastolic blood pressure 80 mm[Hg] MD Sofi Ronquillo Work Phone: [facility] 01-26-2022 10:45-0400 Heart rate 58 /min MD Sofi Ronquillo Work Phone: [facility] 01-26-2022 10:45-0400 Respiratory rate 16 /min MD Sofi Ronquillo Work Phone: [facility] 01-26-2022 10:45-0400 SaO2% (BldA) [Mass fraction] 96 % MD Sofi Ronquillo Work Phone: [facility] 01-26-2022 10:45-5760 Systolic blood pressure 135 mm[Hg] MD Sofi Ronquillo Work Phone: [facility] Encounters Encounter Date Encounter Type Care Provider Facility Start: 08-07-2024 End: 08-07-2024 ambulatory Katey Palomino Facility:[facility] Start: 08-07-2024 Encounter for genera l adult medical examination without abnormal findings Katey Palomino [facility] Start: 06-18-2024 End: 06-18-2024 ambulatory [facility] Work Phone: Start: 06-18-2024 End: 06-18-2024 Patient encounter procedure [facility] Work Phone: Start: 06-03-2024 Patient encounter status [facility] Start: 06-03-2024 End: 06-03-2024 ambulatory [facility] Work Phone: Start: 06-03-2024 End: 06-03-2024 Encounter for general adult medical examination without abnormal findings [facility] Start: 06-03-2024 End: 06-03-2024 Patient encounter procedure [facility] Work Phone: Start: 05-14-2024 End: 05-14-2024 [employer] Jesus Lorenzo DO Work Phone: [employer] [facility] Start: 05-14-2024 End: 05-14-2024 [employer] Jesus Lorenzo DO Work Phone: [employer] [facility] Start: 05-14-2024 End: 05-14-2024 Office outpatient visit 25 minutes Jesus Joyner DO Work Phone: [employer] [facility] Comment on above: Class 3 severe obesi ty due to excess calories with serious comorbidity and body mass index (BMI) of 45.0 to 49.9 in adult (CMS/HCC) (Primary Dx); ZITA (obstructive sleep apnea); Hypoxia; Hypersomnia Start: 05-14-2024 End: 05-14-2024 ambulatory JESUS JOYNER Not Available Start: 11-26-2023 End: 11-26-2023 ambulatory [facility] Work Phone: Start: 11-26-2023 End: 11-26-2023 Patient encounter procedure [facility] Work Phone: Start: 11-15-2023 End: 11-15-2023 ambulatory JW NOYOLA [facility] Ambulatory Start: 11-15-2023 End: 11-15-2023 Office outpatient visit 15 minutes Jw Noyola DO Work Phone: [facility] Comment on above: 3-vessel coronary ar naomi disease; Ischemic cardiomyopathy; Myocardial infarction, unspecified SD type, unspecified artery (CMS/HCC); Morbid obesity (CMS/HCC); Essential hypertension; History of PTCA; Hyperlipidemia, mixed; Former cigarette smoker Start: 09-17-2023 End: 09-17-2023 ambulatory Katey Palomino Other [employer] Other Start: 09-17-2023 Telephone encounter Katey Ruelas her [facility] Start: 09-14-2023 End: 09-14-2023 ambulatory Katey Palomino Other [employer] Other Start: 09-14-2023 Telephone encounter Katey Ruelas her [facility] Start: 09-12-2023 End: 09-12-2023 Patient encounter procedure [facility]- Start: 12-12-2022 FUV, Provider: Jw Noyola, Status: Pen, Time: 2:20 PM Rugen M Camillus Work Phone: [facility] DO Work Phone: Start: 12-12-2022 Office outpatient vi sit 25 minutes Rugen M Camillus Work Phone: [facility] DO Work Phone: Start: 12-12-2022 ambulatory Jw Noyola Facilit [id number] Start: 12-11-2022 Rx Renewal Sofi Ramos Shima Work Phone: [facility] DO Work Phone: Start: 11-01-2022 End: 11-01-2022 ambulatory MD Sofi Ronquillo Work Phone: [facility] Work Phone: Start: 11-01-2022 End: 11-01-2022 Patient encounter procedure MD Sofi Ronquillo Work Phone: [facility] Start: 10-24-2022 End: 10-24-2022 ambulatory Camryn Baker Other [facility] [employer] [employer] Other Start: 10-24-2022 Telephone encounter [facility] Start: 09-19-[address] [place] darryl Noyola Facility:[id number] Start: 09-14-2022 Telephone encounter Sofi Leija da Work Phone: [facility] DO Work Phone: Start: 07-13-2022 Rx Renewal Jw Sommer n DO Work Phone: [facility] DO Work Phone: Start: 05-24-2022 End: 05-24-2022 Patient encounter procedure MD Sofi Ronquillo Work Phone: [facility] Start: 05-24-2022 End: 05-24-2022 ambulatory MD Sofi Ronquillo Work Phone: [facility] Work Phone: Start: 05-24-2022 Office outpatient vi sit 15 minutes [facility] Start: 05-10-2022 End: 05-10-2022 Admission to same day surgery center MD Sofi Ronquillo Work Phone: [facility] Start: 05-10-2022 End: 05-10-2022 ambulatory MD Sofi Ronquillo Work Phone: [facility] Work Phone: Start: 05-08-2022 End: 05-08-2022 Patient encounter procedure MD Sofi Ronquillo Work Phone: [facility] Start: 04-12-2022 AUDIT Jw Sommer n DO Work Phone: -[facility] DO Work Phone: Start: 04-12-2022 End: 04-12-2022 Patient encounter procedure MD Sofi Ronquillo Work Phone: [facility] Start: 04-12-2022 End: 04-12-2022 ambulatory Camryn Baker Other [employer] Other Start: 04-12-2022 Postop follow up vis it related to original px Camryn Calvey [facility] Start: 04-04-2022 End: 04-04-2022 ambulatory Negro Negrete Other [employer] Other Start: 04-04-2022 Telephone encounter Negro CASANOVA G [employer] Start: 03-15-2022 End: 03-15-2022 Patient encounter procedure MD Sofi Ronquillo Work Phone: [facility] Start: 03-15-2022 End: 03-15-2022 ambulatory Camryn Calvey Other [employer] Other Start: 03-15-2022 Postop follow up vis it related to original px Camryn Calvey [facility] Start: 02-22-2022 End: 02-22-2022 ambulatory Camryn Calvey Other [employer] Other Start: 02-22-2022 Postop follow up vis it related to original px Camryn Calvey [facility] Start: 02-22-2022 End: 02-22-2022 Patient encounter procedure MD Sofi Ronquillo Work Phone: [facility] Start: 02-07-2022 End: 02-07-2022 ambulatory Camryn Baker Other [employer] Other Start: 02-07-2022 Postop follow up vis it related to original px Camryn Calvey [facility] Start: 01-31-2022 End: 01-31-2022 Admission to same day surgery center MD Sofi [facility]illo [facility] Start: 01-27-2022 End: 01-27-2022 Patient encounter procedure MD Sofi Ronquillo Work Phone: [facility] [facility] Start: 01-26-2022 End: 01-26-2022 ambulatory Camryn Baker Other [employer] Other Start: 01-26-2022 Telephone encounter Camryn Baker F [facility] Start: 01-26-2022 End: 01-26-2022 Admission to same day surgery center MD Sofi Ronquillo [facility] Start: 01-24-2022 End: 01-24-2022 Patient encounter procedure MD Sofi Ronquillo Work Phone: [facility] Start: 01-19-2022 End: 01-19-[address] SOFI RONQUILLO Facility:[facility]1 Start: 01-11-2022 End: 01-12-[address] BELINDA OMREJON Facility:[facility] Start: 11-04-2021 End: 11-05-[address] SOFI RONQUILLO Facility:[facility] Start: 09-08-2021 Rx Renewal Jw verma DO Work Phone: [facility] [address] DO Work Phone: Procedures Date Procedure Procedure Detail Performing Clinician Start: 11-15-2023 Aspartate aminotrans ferase [Enzymatic activity/volume] in Serum or Plasma JW LEON Start: 11-15-2023 Lipid panel JW CHAPARRITA BARRIOSDON Start: 11-15-2023 Alanine aminotransfe rase [Enzymatic activity/volume] in Serum or Plasma JW NOYOLA Start: 08-08-2023 History of percutane ous transluminal coronary angioplasty History of PTCA Jw Cisnerosdon DO Work Phone: Start: 11-01-2022 Plain X-ray of left wrist MD Sofi Ronquillo Work Phone: Start: 05-24-2022 Plain X-ray of left wrist MD Sofi Ronquillo Work Phone: Start: 05-10-2022 Esophagogastroduodenoscopy MD Sofi Ronquillo Work Phone: Start: 04-12-2022 Plain X-ray of left wrist MD Sofi Ronquillo Work Phone: Start: 03-15-2022 Plain X-ray of left wrist MD Sofi Ronquillo Work Phone: Start: 02-22-2022 Plain X-ray of left wrist MD Sofi Ronquillo Work Phone: Start: 01-31-2022 Plain X-ray of left forearm MD Sofi Ronquillo Work Phone: Start: 01-31-2022 End: 01-31-2022 Plain X-ray of left wrist MD Sofi Ronquillo Work Phone: Start: 01-31-2022 Open reduction of fr acture with internal fixation MD Sofi Ronquillo Work Phone: Appendectomy Jw Noyola DO Work Phone: History of percutane ous transluminal coronary angioplasty History of PTCA Jw Noyola DO Work Phone: History of percutane ous transluminal coronary angioplasty History of PTCA Jw Noyola DO Work Phone: History of placement of stent for coronary artery disease Katey Palomino Other Mouth and face operations Wi lynda Noyola DO Work Phone: Operative procedure on wrist Sofi Ronquillo Work Phone: NEGATED: Highlighted row has not occurred! Total colonoscopy Jw Noyola DO Work Phone: Plan of Treatment Date Care Activity Detail Author Start: 2030 Zoster Vaccines (1 of 2) Zoster Vaccines (1 of 2) [facility] Start: 11-12-2024 End: 11-12-2024 Patient encounter procedure 11/12/2024 9:40 AM EDT Office Visit [facility] [address] [place] [address] Jw Noyola, DO [address] [place] [address] [facility] Start: 05-14-2024 End: 05-14-2024 Patient encounter procedure 05/14/2024 9:15 AM EDT Office Visit [facility] [employer] [place] [facility] [address] [facility] [address] [place] [address] Jesus Joyner [address] [place] [address] [facility] Comment on above: Arrived Start: 04-13-2024 Influenza vaccination [facility] Start: 11-15-2023 End: 11-14-2024 Alanine aminotransferase [Enzymatic activity/volume] in Serum or Plasma by With P-5'-P Alanine Aminotransferase Lab Routine 3-vessel coronary artery disease History of PTCA Hyperlipidemia, mixed Expected: 11/15/2023 (Approximate), Expires: 11/14/2024 [facility] Service Area Work Phone: Comment on above: Expected: 11/15/2023 (Approximate), Expi res: 11/14/2024 Start: 11-15-2023 End: 11-14-2024 Aspartate aminotransferase [Enzymatic activity/volume] in Serum or Plasma by With P-5'-P Aspartate Aminotransferase Lab Routine 3-vessel coronary artery disease History of PTCA Hyperlipidemia, mixed Expected: 11/15/2023 (Approximate), Expires: 11/14/2024 [facility] Work Phone: Comment on above: Expected: 11/15/2023 (Approximate), Expi res: 11/14/2024 Start: 11-15-2023 End: 11-14-2024 Lipid 1996 panel - Serum or Plasma Lipid Panel Lab Routine 3-vessel coronary artery disease History of PTCA Hyperlipidemia, mixed Expected: 11/15/2023 (Approximate), Expires: 11/14/2024 [facility] Work Phone: Comment on above: Expected: 11/15/2023 (Approximate), Expi res: 11/14/2024 Start: 11-15-2023 FUV, Provider: Jw Noyola, Status: Pen, Time: 9:30 AM FUV, Provider: Jw Noyola, Status: Pen, Time: 9:30 AM [facility] [address] DO Work Phone: Start: 10-05-2022 FUV, Provider: Jw Noyola, Status: Pen, Time: 10:10 AM FUV, Provider: Jw Noyola, Status: Pen, Time: 10:10 AM [facility] [address] DO Work Phone: Start: 05-10-2022 [facility] Start: 04-27-2022 FUV, Provider: Jw Noyola, Status: Pen, Time: 9:30 AM FUV, Provider: Jw Noyola, Status: Pen, Time: 9:30 AM [facility] [address] DO Work Phone: Start: 01-31-2022 [facility] Work Phone: Start: 01-31-2022 Plain X-ray of left wrist XR wrist LT min 3V* [facility] Start: 01-31-2022 [facility] Work Phone: Start: 01-26-2022 Open reduction of fracture with internal fixation OR Wrist/Forearm Fx/CLS Reduc W/Pin/ORIF (Left) [facility] Start: 01-26-2022 [facility] Work Phone: Start: 2002 DTaP/Tdap/Td Vaccines (1 - Tdap) DTaP/Tdap/Td Vaccines (1 - Tdap) [facility] Start: 1998 Diabetes mellitus screening Diabetes Screening [facility] Start: 1998 Hepatitis C screening Hepatitis C Screening [facility] Start: 1986 Pneumococcal Vaccine: Pediatrics (0 to 5 Years) and At-Risk Patients (6 to 64 Years) (1 - PCV) Pneumococcal Vaccine: Pediatrics (0 to 5 Years) and At-Risk Patients (6 to 64 Years) (1 - PCV) [facility] Start: 1981 MMR Vaccines (1 of 1 - Standard series) MMR Vaccines (1 of 1 - Standard series) [facility] Start: 1980 COVID-19 Vaccine (#1) COVID-19 Vaccine (#1) [facility] Start: 1980 Hepatitis B Vaccines (1 of 3 - 3-dose series) Hepatitis B Vaccines (1 of 3 - 3-dose series) [facility] Start: 1980 HIV screening HIV Screening [facility] Start: 1980 Lipid panel Lipid Panel [facility] Start: 1980 Yearly Adult Physical Yearly Adult Physical [facility] Comprehensive metabo lic 2000 panel - Serum or Plasma [facility] Patient referral [facility] Work Phone: [facility] Payers Date Payer Category Payer Self-pay [id number] 2022 Medicaid [id number] 2021 Private Health Insurance [id number] 1980 Unknown [id number] [id number] 1980 Unknown [id number] 2.16.84 [id number] 1980 Unknown [id number] 2.16.84 [id number] 1980 Unknown [id number] 2.16.84 [id number] 1980 Unknown [id number] 2.16. [id number] 1980 Unknown [id number] 2.16.8 [id number] 1980 Unknown [id number] 2.16.84 [id number] 1959 Private Health Insurance [id number] 1959 Unknown [id number] Unknown Unknown [id number] 2.16.8 [id number] Social History Date Type Detail Facility Tobacco smoking status [facility] Unknown if ever smoked [facility] Work Phone: Start: 1980 Sex Assigned At Male F [facility] Start: 01-24-2022 End: 11-26-2023 Tobacco smoking status NCIS Ex-smoker (finding) [facility] Start: 11-04-2023 End: 05-14-2024 Sex Assigned At [facility] [employer] Other Start: 11-04-2023 End: 05-14-2024 Former smoker [place] [address] DO Work Phone: Comment on above: weed occasional; History of tobacco use Current smoker [facility] Work Phone: History of tobacco use Cigarette Smoker [facility] Work Phone: Start: 05-04-2023 End: 11-15-2023 Tobacco use and exposure Smokeless tobacco non-user [facility] Work Phone: Start: 11-15-2023 End: 05-14-2024 Alcohol intake Current drinker of alcohol (finding) [facility] Work Phone: Start: 1980 [facility]: Start: 11-05-2023 End: 11-15-2023 Exposure to SARS-CoV-2 (event) Not sure [facility] Start: 05-04-2023 Alcohol Comment Caffeine intak e: 1-2 cups per day [facility] Medical Equipment Procedure Code Equipment Code Equipment Origin al Text Equipment Identifier Dates ORIF, fracture, wrist CANCELLOUS 7.5 CRUSHED FDA Start: 01-31-2022 ORIF, fracture, wrist Orthopaedic bone screw, non-bioabsorbable, non-sterile ()[id number] FDA Start: 01-31-2022 ORIF, fracture, wrist Orthopaedic bone screw, non-bioabsorbable, non-sterile ()[id number] FDA Start: 01-31-2022 ORIF, fracture, wrist Orthopaedic bone screw, non-bioabsorbable, non-sterile ()[id number] FDA Start: 01-31-2022 ORIF, fracture, wrist Orthopaedic bone screw, non-bioabsorbable, non-sterile ()[id number] FDA Start: 01-31-2022 ORIF, fracture, wrist Orthopaedic bone screw, non-bioabsorbable, non-sterile ()[id number] FDA Start: 01-31-2022 ORIF, fracture, wrist Orthopaedic fixation plate, non-bioabsorbable, sterile ()[id number] FDA Start: 01-31-2022 ORIF, fracture, wrist Orthopaedic bone screw, non-bioabsorbable, non-sterile ()[id number] FDA Start: 01-31-2022 ORIF, fracture, wrist Orthopaedic bone screw, non-bioabsorbable, non-sterile ()[id number] FDA Start: 01-31-2022 ORIF, fracture, wrist Orthopaedic bone screw, non-bioabsorbable, non-sterile ()[id number] FDA Start: 01-31-2022 ORIF, fracture, wrist Orthopaedic bone screw, non-bioabsorbable, non-sterile ()[id number] FDA Start: 01-31-2022 ORIF, fracture, wrist CANCELLOUS [...] X 22 FDA Start: 12-16-2018 CL STENT EDMETRIUS 3.0 X 28 FDA Start: 12-16-2018 CL [...] X 22 FDA Start: 12-16-2018 CL STENT DMEETRIUS 3.0 X 28 FDA Start: 12-16-2018 CL [...] Desired Activity /State Clinical Notes 02-07-2022 to 05-14-2024 Jesus Joyner, DO - 05/14/2024 9:15 AM Tee Noyola, DO - 11/15/2023 9:30 AM EDTPatient Instructions Note Date & Type Note Facility 05-14-2024 History of Present illness Narrative Images from the original note were not included. Chief Complaint Patient presents with Sleep Apnea Subjective Massimo Santoyo, 43 y.o., male HPI Patient is here sleep follow up. He states that he needs a new order for supplies. He states that the seal on his mask has not been sealing. The different mask he got after the last visit did help the snoring. He still does get somewhat of a leak. He did try a nasal mask but his mouth opens. He tried a dreamwear mask but that did not work for him. He cannot sleep without it. HE uses it for naps. He gets great benefit. NO new medical issues since his last visit other than his depression has not been as good control. He is exercises a little more. The job he has now is more active. He is trying to walk more. Past Medical History: Diagnosis Date Anxiety Bronchitis Chicken pox Chronic sinusitis COVID-19 07/2020 Depression ([facility]/HCC) Gout H/O exercise stress test 09/19/2022 Dr. Flores Heart disease Hx of CT scan 11/04/2021 Ct scan shows trace amount of Chronic Sinusitis Hypertension (CMS/HCC) Ischemic cardiomyopathy (CMS/HCC) Medication management medication induced NSTEMI (non-ST elevated myocardial infarction) ([facility]/HCC) 12/14/2018 [facility] Personal history of medical treatment Dx based on Clinical Presentation - 2nd toe R Path Submitted 01-16-20 Prepatellar abscess 04/05/2021 Prepatellar soft tissue swelling. Mild Degenerative changes and chondrocalcinosis Prostate disease Radius fracture 01/31/2022 Lt Comminuted Radius Fracture ([facility]) Past Surgical History: Procedure Laterality Date EGD 05/10/2022 Normal FRACTURE SURGERY 01/31/2022 ORIF Lt Radius Fracture, Wrist Interosseous Neurectomy HEART CATH 12/2018 heart cath, 3 stents Angioplasty and stenting of the proximal, ostial circumflex, Angio,plasty and stenting of the chronic occlusion of the mid LAD, Angioplasty and stenting of the diagonal and balloon angioplasty of the second diagonal branch. UMBILICAL HERNIA REPAIR 05/09/2021 Incarcerated Family History Problem Relation Name Age of Onset Hypertension Mother Heart disease Mother Cancer Mother Arthritis Mother Diabetes Father Hypertension Father Heart disease Father Arthritis Father Diabetes Brother Social History Tobacco Use Smoking status: Former Types: Cigarettes Smokeless tobacco: Never Substance Use Topics Alcohol use: Yes Alcohol/week: 2.0 standard drinks of alcohol Types: 2 Standard drinks or equivalent per week Comment: Caffeine intake: 1-2 cups per day Allergies: Iodinated contrast media and Lisinopril General: No fever or chills HEENT: No nasal congestion or runny nose Pulmonary: No shortness of breath or cough Cardiovascular: No chest pain or palpitations GI: No nausea or vomiting : No dysuria or hematuria Musculoskeletal: No new aches or pains or muscle weakness Infectious: no recurrent fevers or infections Dermatologic: No rashes or skin lesions Neurologic: No new headaches or dizziness Vitals: 05/14/24 0923 BP: (!) 152/96 Pulse: 55 SpO2: 94% Body mass index is 45 kg/m . weight: 360 lb Neurologic exam: General: obese, cooperative, pleasant Mental status: Awake, alert to person, place and time. Recent and remote memory are intact. Attention and concentration are normal. Fund of knowledge is appropriate for level of education. HEENT: NC/AT Cranial nerves: CN II: Visual lowry full to confrontation. No loss of vision CN III, IV, : pupils equal round and reactive to light. Extraocular movements intact. No ptosis present. CN V: Facial sensation is normal. CN VII: Full and symmetric facial movement. CN VIII: Hearing is normal CN IX and X: Palate elevates symmetrically. CN XI: Shoulder shrug is normal bilaterally. CN XII: Tongue is midline without atrophy or fasciculation. Speech: Clear and fluent no aphasia or dysarthria Pronator drift: Negative bilateral upper extremity Coordination: Intact, no signs of dysmetria Good finger to nose and rapid alternating movements Sensory: Sensation is intact to light, temperature and vibratory touch throughout four extremities. Motor: LUE 5/5 RUE 5/5 LLE 5/5 RLE 5/5 Tone: Physiologic, no tremor, bradykinesia or rigidity DTR: Bilateral Biceps 2/4 Bilateral BR 2/4 Bilateral Patellar 1/4 No spasticity Gait: Normal to casual gait Romberg's Negative Review and summary of old records: Assessment/Plan Diagnoses and all orders for this visit: Class 3 severe obesity due to excess calories with serious comorbidity and body mass index (BMI) of 45.0 to 49.9 in adult ([facility]) ZITA (obstructive sleep apnea) Hypoxia Hypersomnia 43 yo Male with a severe obstructive sleep apnea with an AHI of 72 and hypoxia down to 79 percent. This is leading to daytime hypersomnolence and snoring. He is compliant with his machine using it 97 percent of the time greater than 4 hours with an average nightly usage of 8 hours and 8 minutes and residual AHI 1.9. This is working well for him. He still has somewhat of a leak with his mask but he does have facial hair and that could be part of it. He certainly can work with his DME and see if there is any other mask that would fit his face better. Overall however he is doing very well getting great benefit and states he can not even sleep without the mask. Plan Compliance was reviewed as above and he is compliant Wear the machine whenever sleeping Work with the DME potentially getting different masks and might fit him better The patient was counseled on the need for aggressive diet, exercise, and weight loss. The patient was counseled on proper sleep hygiene and adequate hours of sleep. The patient was counseled on the risks of stroke, SD, and sudden with ZITA, along with the need for compliance with the CPAP/BiPAP treatment. The diagnosis was all discussed with the patient. All questions were answered and they agreed with the treatment plan. Patient will call if there are any new issues or questions. Pt has been fully educated on their diagnosis, treatment options, follow up plan, and return instructions Return to clinic: 1 year documented in this encounter [facility] 11-15-2023 History of Present illness Narrative Subjective Massimo Santoyo is a 43 y.o. male Chief Complaint Annual Exam 43-year-old gentleman returns for follow-up he is doing well he denies any cardiovascular events, complaints, hospitalizations or nitrate usage. He states he is working on his weight and blood pressure, blood pressure came down nicely to 134/82 on my recheck. He remains overweight at 360 pounds. We have counseled him on dietary discretion, weight loss, exercise, aerobic training and appropriate foods to abstain. Patient has a history of Non-ST elevation [...] obesity, hypertension, family history of precocious coronary disease Recommendations, obtain appropriate laboratories, follow-up in 1 year Review of Systems Respiratory: Positive for shortness of breath. Neurological: Positive for dizziness. All other systems reviewed and are negative. Vitals: 11/15/23 0918 11/15/23 0937 BP: (!) 150/100 134/82 BP Location: Right arm Right arm Patient Position: Sitting Sitting Pulse: 62 Weight: (!) 163 kg (360 lb 6.4 oz) Height: 1.905 m (6' 3 ) Objective Physical Exam Constitutional: Appearance: Normal appearance. HENT: Nose: Nose normal. Neck: Vascular: No carotid bruit. Cardiovascular: Rate and Rhythm: Normal rate. Pulses: Normal pulses. Heart sounds: Normal heart sounds. Pulmonary: Effort: Pulmonary effort is normal. Abdominal: General: Bowel sounds are normal. Palpations: Abdomen is soft. Musculoskeletal: General: Normal range of motion. Cervical back: Normal range of motion. Right lower leg: No edema. Left lower leg: No edema. Skin: General: Skin is warm and dry. Neurological: General: No focal deficit present. Mental Status: He is alert. Psychiatric: Mood and Affect: Mood normal. Behavior: Behavior normal. Thought Content: Thought content normal. Judgment: Judgment normal. Allergies Lisinopril Current Medications Current Outpatient Medications: allopurinol (Zyloprim) 300 mg tablet, Take 1 tablet (300 mg) by mouth once daily., Disp: , Rfl: amLODIPine (Norvasc) 10 mg tablet, Take 1 tablet (10 mg) by mouth once daily., Disp: 90 tablet, Rfl: 3 atorvastatin (Lipitor) 80 mg tablet, Take 1 tablet (80 mg) by mouth once daily at bedtime., Disp: 90 tablet, Rfl: 3 clopidogrel (Plavix) 75 mg tablet, Take 1 tablet (75 mg) by mouth once daily., Disp: 90 tablet, Rfl: 3 furosemide (Lasix) 40 mg tablet, Take 1 tablet (40 mg) by mouth once daily., Disp: , Rfl: metoprolol succinate XL (Toprol-XL) 50 mg 24 hr tablet, Take 1 tablet (50 mg) by mouth once daily., Disp: 90 tablet, Rfl: 3 nitroglycerin (Nitrostat) 0.4 mg SL tablet, Place 1 tablet (0.4 mg) under the tongue every 5 minutes if needed for chest pain. Report to the ER or call 911 after third dose., Disp: , Rfl: pantoprazole (ProtoNix) 20 mg EC tablet, Take 1 tablet (20 mg) by mouth once daily in the morning. Take before meals. Do not crush, chew, or split., Disp: , Rfl: valsartan (Diovan) 320 mg tablet, Take 1 tablet (320 mg) by mouth once daily., Disp: , Rfl: Assessment/Plan 1. 3-vessel coronary artery disease 2. Ischemic cardiomyopathy 3. Myocardial infarction, unspecified SD type, unspecified artery (CMS/HCC) 4. Morbid obesity (CMS/HCC) 5. Essential hypertension 6. History of PTCA 7. Hyperlipidemia, mixed 8. Former cigarette smoker Scribe Attestation By signing my name below, I, Sidney Wilson LPN attest that this documentation has been prepared under the direction and in the presence of Jw Noyola DO. Provider Attestation - Scribe documentation All medical record entries made by the Scribe were at my direction and personally dictated by me. I have reviewed the chart and agree that the record accurately reflects my personal performance of the history, physical exam, discussion and plan. documented in this encounter [facility] Work Phone: 11-15-2023 Instructions Chantale Schaffer LPN - 11/15/2023 9:30 AM EDT Please bring all medicines, vitamins, and herbal supplements with you when you come to the office. Prescriptions will not be filled unless you are compliant with your follow up appointments or have a follow up appointment scheduled as per instruction of your physician. Refills should be requested at the time of your visit. BMI was above normal measurement. Current weight: (!) 163 kg (360 lb 6.4 oz) Weight change since last visit (-) denotes wt loss -3.6 lbs Weight loss needed to achieve BMI 25: 160.8 Lbs Weight loss needed to achieve BMI 30: 120.9 Lbs Provided instructions on dietary changes Provided instructions on exercise. documented in this encounter [facility] Work Phone: 05-24-2022 Evaluation note Encounter Date Diagnosis Assessment [...] Other specified postprocedural states (ICD-10 - Z98.890) [employer] Other [facility]-28-2022 [facility]* Encounter Date Diagnosis Assessment Notes Treatment Notes Treatment Clinical Notes Mar, Closed displaced segmental fracture of shaft of left radius, initial encounter (ICD-10 - S52.362A) Patient instructed that he may begin to slowly progrress activity as tolerated. May work with 60 lb weight restriction, note given Mar, Other specified postprocedural states (ICD-10 - Z98.890) [employer] Other 08-23-2022 Evaluation note* Encounter Date Diagnosis Assessment Notes Treatment Notes Treatment Clinical Notes Mar, Gastroesophageal ref lux disease, unspecified whether esophagitis present (ICD-10 - K21.9) Mar, Dysphagia, unspecifi ed type (ICD-10 - R13.10) [employer] Other 08-03-2022 Evaluation note* Encounter Date Diagnosis [...] at home up to 10lbs as tolerated. [employer] Other 07-13-2022 Evaluation note* Encounter Date Diagnosis [...] Other specified postprocedural states (ICD-10 - Z98.890) [employer] Other 07-13-2022 Notecomplication or change in alignment. No significant healing is noted. There is communication [employer] Other 06-28-2022 Evaluation note* Encounter Date Diagnosis [...] Other specified postprocedural states (ICD-10 - Z98.890) [employer] Other Evaluation noteNo assessment information available [facility] Work Phone: Evaluation noteNo [employer] Other Evaluation note* Diagnosis 3-vessel coronary artery disease Ischemic cardiomyopathy Other specified forms of chronic ischemic heart disease Myocardial infarction, unspecified SD type, unspecified artery (CMS/HCC) Morbid obesity (CMS/HCC) Morbid obesity Essential hypertension Unspecified essential hypertension History of PTCA Postsurgical percutaneous transluminal coronary angioplasty status Hyperlipidemia, mixed Mixed hyperlipidemia Former cigarette smoker Personal history of tobacco use, presenting hazards to health documented in this encounter [facility] Work Phone: Evaluation note* Diagnosis Onset Date Resolution Status Blepharitis acute Maxillary sinusitis, acute a cute [facility] Work Phone: Evaluation note* Diagnosis Class 3 severe obesity due to excess calories with serious comorbidity and body mass index (BMI) of 45.0 to 49.9 in adult ([facility])- Primary ZITA (obstructive sleep apnea) Obstructive sleep apnea (adult) (pediatric) Hypoxia Hypoxemia Hypersomnia Hypersomnia, unspecified [facility] Diagnosis Onset Date Resolution Status Anxiety acute Chronic gout without tophus acute Depression acute GERD (gastroesophageal reflux disease) acute History of SD (myocardial infarction) acute Hyperlipidemia acute Hypertension acute Sleep apnea acute Wellness examination acute [facility] Work Phone: Evaluation note* Diagnosis Onset Date Resolution Status Anxiety acute BMI 45.0-49.9, adult acute Chronic gout without tophus acute Depression acute GERD (gastroesophageal reflux disease) acute History of SD (myocardial infarction) acute Hyperlipidemia acute Hypertension acute Sleep apnea acute Umbilical hernia acute Wellness examination acute Maxillary sinusitis acute [facility] Work Phone: History and physical note Author Negro Negrete [facility] May 10, 2022 10:45am Note Date/Time May 10, 2022 10:44am [facility] [address] [place] [address] Gastroenterology H&P Signed Patient: Massimo Santoyo MR#: [id number] : 1980 Acct:[id number] Age/Sex: 41 / M Adm Date: 2 Loc: Room: Type: [facility] Attending Dr: Negro Negrete MD Copies to: MD Sofi Shaffer MD~ Date of Service: 05/10/2022 HISTORY [...] signed by Negro Negrete MD> 05/10/22 1045 [facility] Work Phone: Hiskhcx general Narrative - Reported* Type Description Date Medical History high cholesterol Medical History high blood pressure Medical History Gout Surgical History 3 stents [employer] Other History general Narrative - Reported* Type Description Date Medical History high cholesterol Medical History high blood pressure Medical History Gout Surgical History 3 stents Surgical History Left Wrist ORIF [employer] Other Hisicvy general Narrative - Reported* Type Description Date Medical History high cholesterol Medical History high blood pressure Medical History Gout Medical History SD Surgical History 3 stents Surgical History Left Wrist ORIF [employer] Other Hospital Discharge instructions Additional Instructions DISCHARGE [...] NOT operate machinery such as power tools, [employer] mowers, snow blowers, sewing machines, etc. for [...] Follow up with PCP. - Office number [phone].[facility] Work Phone: Progress note Author Alexys German [facility] January 26, 2022 12:36pm Note Date/Time January 26, 2022 12:3 6pm [facility] [address] [place] [address] Anesthesia Progress Note Signed Patient: Massimo Santoyo MR#: [id number] : 1980 Acct:[id number] Age/Sex: 41 / M Adm Date: 2 Loc: NM Room: Type: [facility] Attending Dr: Camryn Baker MD Copies to: ~ Anesthesia Progress Note Narrative Narrative: pre-op tox screen positive for cocaine. Will d/w Dr. Baker and reschedule, check pre-op tox screen again on admission. Documented By: Alexys German Jr, MD 01/26/22 1 234 Signed By: <Electronically signed by Alexys German Jr, MD> 01/26/22 1236 [facility] Work Phone: Reason for referral (narrative)* Consultation (Routine) - Authorized Specialty Diagnoses / Procedures Referred By Kasie t Referred To Contact Cardiology Diagnoses 3-vessel coronary artery disease Procedures Follow Up In Cardiology Jw Noyola DO [address] [facility] [address], [address] [address] Jw Noyola DO [address] [place] [address] [address], [address] [address] Referral ID Status Reason Start Date Expiration Date V isits Requested Visits Authorized [id number] Authorized 11/15/2023 11/14/2024 1 1 T [facility] Work Phone: Family History No Family History Records Found Relationship Condition Age at Onset Recorded Date/T [...] history of myocardial infarction: Mother(V17.3, Z82.49) Status:Active Relationship Condition Age at Onset Recorded Date/T manish mother Coronary artery disease Unknown father Chronic obstructive pulmonary disease Unk nown Malignant neoplasm of lung Unknown brother Diabetes mellitus Unknown Summary Purpose Advance Directives No Advanced Directives Records Found Advance Directive Response Recorded Date/ Time Advance Directives No December 16, 2018 12:59am Advance Directive Response Recorded Date/ Time Advance Directives No December 15, 2018 11:59pm Chief Complaint and Reason for Visit Chief [...] Swallowing, GERD Difficulty Swallowing, GERD Chief Complaint Establish swollen eye lids, itchy Reason for Visit Blepharitis Maxillary sinusitis, acute Chief Complaint Physical/Meds Reason for Visit Anxiety Chronic gout without tophus Depression GERD (gastroesophageal reflux disease) History of SD (myocardial infarction) Hyperlipidemia Hypertension Sleep apnea Wellness examination Chief Complaint Physical/Meds low engery, coughing Reason for Visit Anxiety BMI 45.0-49.9, adult Chronic gout without tophus Depression GERD (gastroesophageal reflux disease) History of SD (myocardial infarction) Hyperlipidemia Hypertension Sleep apnea Umbilical hernia Wellness examination Maxillary sinusitis Chief Complaint * MASSIMO SANTOYO is being [...] documented in an alternate sectionNo InformationNo InformationNo InformationGoals may be documented in an alternate sectionGoals may be documented in an alternate sectionGoals may be documented in an alternate section (unrecognized sect ion and content) No Status Records FoundNo Status Records FoundNo Status Records FoundNo Status Records FoundNo Status Records FoundNo Status Records FoundNo Status Records FoundNo Status Records Found INFORMATION SOURCE (unrecogn ized section and content) DATE CREATED AUTHOR 01/19/2022 [facility] dical Specialist DATE CREATED AUTHOR AUTHOR'S ORGANIZ ATION 09/21/2022 [facility] DATE CREATED AUTHOR AUTHOR'S ORGANIZ ATION 09/29/2022 [facility] DATE CREATED AUTHOR AUTHOR'S ORGANIZ ATION 12/14/2022 [facility] ical Center DATE CREATED AUTHOR AUTHOR'S ORGANIZ ATION 12/14/2022 [employer] DATE CREATED AUTHOR AUTHOR'S ORGANIZ ATION 11/16/2023 [facility] DATE CREATED AUTHOR AUTHOR'S ORGANIZ ATION 05/15/2024 [facility] dical Specialists EPIC DATE CREATED AUTHOR AUTHOR'S ORGANIZ ATION 08/08/2024 [facility] ys[facility] Care Teams (unrecognized sec tion and content) Team Status: Inactive Member Role Status Dates Sofi Ronquillo MD Primary Care Provider Active Camryn Baker MD Attending Provider Active Team Status: Active Member Role Status Dates Sofi Ronquillo MD Primary Care Provider Active Team Status: Inactive Member Role Status Dates Sofi Ronquillo MD Primary Care Provider Active Negro Negrete MD Attending Provider Active [employer] Relationship Specialty Start Date End Date Sofi oRnquillo MD [address] [facility] [address] [place] [address] PCP - General 09/19/22 Team Status: Active Member Role Status Dates Katey Palomino APRN [employer] Primary Care Provider Active Team Status: Inactive Member Role Status Dates Katey Palomino APRN [employer] Attending Provider Act marianna Start: September 12, 2023 End: September 12, 2023 Team Status: Inactive Member Role Status Dates Katey Palomino APRN [employer] Primary Care Provider, Attending Provider Active Start: November 26, 2023 End: November 26, 2023 [employer] Relationship Specialty Start Date End Date Sofi Ronquillo MD [address] [facility] [address] [place] [address] PCP - General Family Medicine 12/19/22 [employer] Relationship Specialty Start Date End Date Sofi Ronquillo MD [address] [place] [address] [address] [place] [address] PCP - General Family Medicine 12/19/22 Team Status: Inactive Member Role Status Dates Katey Palomino APRN [employer] Primary Care Provider, Attending Provider Active Start: June 03, 2024 End: June 03, 2024 Team Status: Inactive Member Role Status Dates Katey Palomino APRN [employer] Primary Care Provider, Attending Provider Active Start: June 18, 2024 End: June 18, 2024 REASON FOR VISIT (unrecogniz ed section and content) Reason Comments Annual Exam 1yr Reason Comments Sleep Apnea FOR RECORDS PERTAINING TO PATIENTS WHO ARE [...] BE BASED ON THE PRIMARY CLINICAL RECORDS. [employer]. provides no warranty or guarantee of the accuracy or completeness of information in this document.
== END 2024-09-02 08:35 | disposition home or self-care (01) ==
LOC: CT 08:34
PROVIDERS: PCP Nurse Practitioner Family; Visit Provider Nurse Practitioner Family
DX: J32.0 Chronic maxillary sinusitis (principal); K42.9 Umbilical hernia without obstruction or gangrene
CPT/HCPCS: 70486